=== PATIENT | female | born 1940 | race Caucasian/White ===

== ENCOUNTER → 2019-06-18 09:42 | Outpatient (BNVA) | payer MEDICARE, OTHER, SELFPAY | PROVIDERS: Family Provider Family Medicine; PCP Family Medicine; Visit Provider Urology | DX: N30.20 Other chronic cystitis without hematuria (principal); N39.9 Disorder of urinary system, unspecified | CPT/HCPCS: 81001 ==

== ENCOUNTER 2019-06-28 09:54 | Outpatient (CLI) | payer MEDICARE, OTHER, SELFPAY ==
--- NOTE | 2019-06-28 10:06 | MR_ITS ---
WS: [id number] MRI BRAIN WITH HIGH-RESOLUTION IMAGING THROUGH THE INTERNAL AUDITORY CANALS WITHOUT AND WITH CONTRAST HISTORY: DIZZINESS AND GIDDINESS COMPARISON: None available. TECHNIQUE: Multiplanar, multisequence imaging is performed through the brain. Additional 3 mm imaging performed in multiple planes through the internal auditory canal. Postcontrast imaging with 14 ml's of Prohance. No acute intracranial hemorrhage, midline shift, edema or mass effect. Patchy and confluent periventricular and deep white matter hyperintensities from chronic ischemic dis ease. No prior infarct. No acute infarct. Ventricles are mildly dilated on the basis of atrophy. No inferior displacement of cerebellar tonsils. Clivus and pituitary gland are normal. Internal and external auditory canals: Unremarkable. Cranial nerves VII and VIII complexes: Unremarkable. No enhancement or mass. Cerebellopontine angles: Normal. Paranasal sinuses: Normal. Mastoid air cells: Normal. Calvarium and scalp: Normal. Visualized [place] of [place] and dural venous sinuses demonstrate no abnormality. MR/MR iac's wo/w con* [id number] IMPRESSION: 1. Normal internal auditory canals and cerebellopontine angles. 2. Moderate chronic microvascular ischemic disease.
[2019-06-28 11:23] LABS: Blood Urea Nitrogen 19 mg/dL (8-23)
== END 2019-06-28 09:55 | disposition home or self-care (01) ==
LOC: RADWPI 10:00
PROVIDERS: Family Provider Family Medicine; PCP Family Medicine; Visit Provider Specialist
DX: I67.82 Cerebral ischemia (principal); R42 Dizziness and giddiness; N30.20 Other chronic cystitis without hematuria
CPT/HCPCS: 70553; 82565; 84520; A9579

== ENCOUNTER 2019-08-06 15:20 | Outpatient (CLI) | payer MEDICARE, OTHER, SELFPAY ==
[2019-08-06 15:46] VITALS: BP 160/87; PULSE 73; RESP 18; TEMP 37.1; O2SAT 96
[2019-08-06] MEDS: denosumab 60 mg SDV SUBCUT (15:56)
[2019-08-06 15:59] VITALS: BP 163/91; PULSE 71; RESP 18; TEMP 37
== END 2019-08-06 15:21 | disposition home or self-care (01) ==
LOC: RHEOACUTE 15:21
PROVIDERS: Family Provider Family Medicine; PCP Family Medicine; Visit Provider Internal Medicine Rheumatology
DX: M81.0 Age-related osteoporosis without current pathological fracture (principal)
CPT/HCPCS: 96372; J0897

== ENCOUNTER 2019-10-24 12:17 | Outpatient (RCR) | payer MEDICARE, OTHER, SELFPAY | END 2019-11-22 23:59 | disposition home or self-care (01) | LOC: SPT 12:17 | PROVIDERS: Family Provider Family Medicine; PCP Family Medicine; Referring Provider Otolaryngology; Visit Provider Otolaryngology | DX: R42 Dizziness and giddiness (principal) | CPT/HCPCS: 95992; 97112; 97162 ==

== ENCOUNTER 2019-11-04 09:25 | Outpatient (CLI) | payer MEDICARE, OTHER, SELFPAY ==
--- NOTE | 2019-11-04 09:33 | MM_ITS ---
WS: [id number] Bilateral screening digital mammogram, 11/04/2019 Clinical Data: SCREENING Comparison: 11/02/2018, 10/08/2018, 10/02/2017, 07/11/2017, 09/26/2016, 08/26/2015, 08/04/2014, 08/02/2013, 07/23, 08/01/2011, 07/28/2010, 06/29/2009, 06/02/2008, 05/14/2007, 05/12/2006. Findings: The breast parenchymal pattern shows extreme density No spiculated masses or clustered calcifications are seen. There are no secondary signs of carcinoma. There are calcifications in the north of small vessels. MM/[place] [id number] Impression: 1. Negative bilateral mammogram unchanged. 2. Recommend annual screening mammograms. BIRADS: 1-Negative FOLLOW UP: 1 Year Follow-up The CAD checkering machine operator was used.
== END 2019-11-04 09:26 | disposition home or self-care (01) ==
PROVIDERS: PCP Family Medicine; Visit Provider Family Medicine
DX: Z12.31 Encounter for screening mammogram for malignant neoplasm of breast (principal)
CPT/HCPCS: 77067

== ENCOUNTER → 2019-11-12 11:32 | Outpatient (BNVA) | payer MEDICARE, OTHER, SELFPAY | PROVIDERS: PCP Family Medicine; Visit Provider Dermatology | DX: L57.0 Actinic keratosis (principal); L82.1 Other seborrheic keratosis; D18.01 Hemangioma of skin and subcutaneous tissue; Z85.828 Personal history of other malignant neoplasm of skin | CPT/HCPCS: 17000; 99203 ==

== ENCOUNTER → 2020-03-05 08:42 | Outpatient (BNVA) | payer MEDICARE, OTHER, SELFPAY | PROVIDERS: PCP Family Medicine; Visit Provider Urology | DX: N30.20 Other chronic cystitis without hematuria (principal) | CPT/HCPCS: 81003 ==

== ENCOUNTER 2020-03-24 12:52 | Outpatient (CLI) | payer MEDICARE, OTHER, SELFPAY ==
[2020-03-24 13:00] VITALS: BP 147/78; PULSE 75; RESP 16; TEMP 36.3; O2SAT 98
[2020-03-24] MEDS: denosumab 60 mg SDV SUBCUT (13:05)
[2020-03-24 13:12] VITALS: BMI 22.6
[2020-03-24 13:32] VITALS: BP 139/75; PULSE 68; RESP 16; TEMP 36.3; O2SAT 97
== END 2020-03-24 12:53 | disposition home or self-care (01) ==
LOC: RHEOACUTE 12:53
PROVIDERS: PCP Family Medicine; Visit Provider Internal Medicine Rheumatology
DX: M81.0 Age-related osteoporosis without current pathological fracture (principal)
CPT/HCPCS: 96372; J0897

== ENCOUNTER → 2020-09-02 09:55 | Outpatient (BNVA) | payer MEDICARE, OTHER, SELFPAY | PROVIDERS: PCP Family Medicine; Visit Provider Urology | DX: N39.0 Urinary tract infection, site not specified (principal) | CPT/HCPCS: 81003; 87086 ==

== ENCOUNTER 2020-09-23 11:12 | Outpatient (CLI) | payer MEDICARE, OTHER, SELFPAY ==
[2020-09-23 12:25] LABS: Calcium 9.1 mg/dL (8.5-10.5)
[2020-09-23 12:41] LABS: 25 Hydroxy Vitamin D 65 ng/mL (30-100)
--- NOTE | 2020-09-23 14:41 | PC.NURSE ---
Peripheral labs from left ac using 21G needle. Site cleaned with alcohol, betadine, alcohol. Pt tolerated well and site covered with sterile gauze, coban.
== END 2020-09-23 11:13 | disposition home or self-care (01) ==
PROVIDERS: PCP Family Medicine; Visit Provider Family Medicine
DX: M81.0 Age-related osteoporosis without current pathological fracture (principal)
CPT/HCPCS: 82306; 82310; 82565

== ENCOUNTER 2020-09-28 06:49 | Outpatient (CLI) | payer MEDICARE, OTHER, SELFPAY ==
[2020-09-28] MEDS: denosumab 60 mg SDV SUBCUT (14:43)
[2020-09-28 15:43] VITALS: BP 145/74; PULSE 69; RESP 18; TEMP 36.6; O2SAT 96
--- NOTE | 2020-09-28 16:08 | PC.NURSE ---
1435 - Patient's Calcium level from lab draw last week was 9.1. I contacted Dr. Howe's office before giving Prolia injection, and spoke with his nurse, Kimberlyn. Dr. Howe instructed us to proceed with the injection. dh
== END 2020-09-28 06:50 | disposition home or self-care (01) ==
LOC: ONCMED 06:52
PROVIDERS: PCP Family Medicine; Visit Provider Family Medicine
DX: M81.0 Age-related osteoporosis without current pathological fracture (principal)
CPT/HCPCS: 96372; J0897

== ENCOUNTER 2020-12-02 11:37 | Outpatient (CLI) | payer MEDICARE, OTHER, SELFPAY ==
--- NOTE | 2020-12-02 11:44 | MM_ITS ---
WS: [id number] BILATERAL DIGITAL SCREENING MAMMOGRAPHY WITH CAD CLINICAL INFORMATION: SCREENING HISTORY: Screening mammogram. No current complaints. COMPARISON: November 04, 2019 TECHNIQUE: Bilateral CC and MLO views. FINDINGS: The breasts are composed of heterogeneous fibroglandular density tissue, which can limit the detectio n of small underlying mass lesions. Punctate and vascular calcifications. No suspicious mass, asymmet ry, calcifications, or architectural distortion. No evidence of malignancy. MM/[place] [id number] IMPRESSION: BI-RADS: 2-Benign FOLLOW UP: 1 Year Follow-up Recommend return to annual screening mammography.
== END 2020-12-02 11:38 | disposition home or self-care (01) ==
LOC: RADSHAW 11:40
PROVIDERS: PCP Family Medicine; Visit Provider Family Medicine
DX: Z12.31 Encounter for screening mammogram for malignant neoplasm of breast (principal)
CPT/HCPCS: 77067

== ENCOUNTER 2021-01-26 08:14 | Outpatient (CLI) | payer MEDICARE, OTHER, SELFPAY ==
--- NOTE | 2021-01-26 08:36 | XR_ITS ---
WS: [id number] Bone mineral density performed on a autoGraph IDXA, 01/26/2021 Clinical data: OSTEOPOROSIS COMPARISON STUDY: DEXA scans, 12/10/2018, 11/14/2016, 09/23/2014. Findings: The first 4 lumbar vertebral bodies demonstrated the bone mineral density of 0.340 g/cm2 for a young adult T score of -7.0. There is a levoscoliosis. The bone mineral density of the lumbar spine has in creased slightly compared to the prior study. Measurement of the left hip reveals a bone mineral density of 0.743 g/cm2 with a young adult T score of -2.1. Measurement of the right hip reveals the bone mineral density of 0.835 g/cm2 for young adult T score of -1.4. The bone mineral density of the hips has increased slightly compared to the prior study. XR/XR DEXA axial skeleton* [id number] Impression: 1. Osteoporosis of the lumbar spine. 2. Osteopenia of the hips.
== END 2021-01-26 08:15 | disposition home or self-care (01) ==
PROVIDERS: PCP Family Medicine; Visit Provider Family Medicine
DX: M81.0 Age-related osteoporosis without current pathological fracture (principal); M85.89 Other specified disorders of bone density and structure, multiple sites
CPT/HCPCS: 77080

== ENCOUNTER → 2021-03-09 09:17 | Outpatient (BNVA) | payer MEDICARE, OTHER, SELFPAY | PROVIDERS: PCP Family Medicine; Visit Provider Nurse Practitioner Family | DX: N39.0 Urinary tract infection, site not specified (principal) | CPT/HCPCS: 81003 ==

== ENCOUNTER 2021-04-01 09:58 | Outpatient (CLI) | payer MEDICARE, OTHER, SELFPAY ==
[2021-04-01 10:08] VITALS: BP 147/88; PULSE 76; RESP 18; TEMP 36.2; O2SAT 98
[2021-04-01] MEDS: denosumab 60 mg SDV SUBCUT (10:13)
[2021-04-01 10:22] VITALS: BP 150/85; PULSE 73; RESP 18; TEMP 36.7; O2SAT 96
== END 2021-04-01 09:59 | disposition home or self-care (01) ==
LOC: ONCMED 09:59
PROVIDERS: PCP Family Medicine; Referring Provider Family Medicine; Visit Provider Family Medicine
DX: M81.0 Age-related osteoporosis without current pathological fracture (principal)
CPT/HCPCS: 96372; J0897

== ENCOUNTER 2021-04-13 07:02 | Outpatient (CLI) | payer MEDICARE, OTHER, SELFPAY ==
[2021-04-13 07:22] VITALS: BMI 22.9
--- NOTE | 2021-04-13 07:22 | NMCV_ITS ---
NM ji perf SPECT r/s* [id number] Dionna Concepcion Age: 81 Gender: F : 1940 Exam Date: 04/13/2021 08:14 Ordering Phys: Arnold Cox M.D ([email or web address]) Technologist: FREDERIC Miles Exam Location: [facility] Indications: SHORTNESS OF BREATH STRESS TEST Please see separate stress test report in [facility] for full findings IMAGE PROTOCOL Rest/Stress 1 Lexiscan Day Radiopharmaceutical Dose (mCi) Administration Site Administered by Rest: Tc-99m 10.8 IV FREDERIC Horowitz Sestamibi Stress:Tc-99m 32.4 IV FREDERIC Horowitz Sestamibi Rest: 13-Apr-2021 60 Discovery 630 Stress: 13-Apr-2021 30 Discovery 630 0.4mg Lexiscan. Supine position only as patient was unable to lay prone. SPECT RESULTS Technical Quality: Excellent Raw Data Analysis: Normal Image Corrections: No attenuation or motion correction applied Summed Stress Score: 1 Summed Rest Score: 1 Summed Difference Score: 1 PERFUSION FINDINGS SPECT images demonstrate homogeneous tracer distribution throughout the myocardium. FUNCTIONAL RESULTS (calculated via Gated SPECT) Stress Image LV EF (%): 77 Stress EDV (mL):57 TID: 0.66 Stress ESV (mL):13 FUNCTIONAL FINDINGS: There is normal left ventricular systolic function. IMPRESSIONS 1. Normal myocardial perfusion imaging with no evidence of ischemia 2. LV systolic function is normal Arnold Cox MD (Electronically Signed) Final Date: 13 April 2021 10:57 S
--- NOTE | 2021-04-13 07:22 | ECG_ITS ---
[facility] Test Date: 2021-04-13 Pat Name: Dionna Concepcion Department: Room: Gender: Female Software Systems Analyst: Kaitlyn Saeed : 1940 Requested By: Arnold Cox Order Number: [id number] Dave MD: Arnold Cox M.D. Interpretive Statements NAME OF STUDY: LEXISCAN SESTAMIBI STRESS TEST INDICATION: [Chest Pain, ] Procedure: At the baseline, the blood pressure was 208/95 mmHg with a heart rate of 74 bpm. The electrocardiogram showed normal sinus rhythm, left axis deviation, intraventricular conduction delay with normal ST and T's. The Lexiscan was infused over a period of 20 seconds. A total of 0.4 mg of Lexiscan was infused. The stress phase was continued for a total of 5 minutes. Heart rate was at the end of stress phase was 104 bpm and a blood pressure of 198/95 mmHg. The EKG at the peak infusion revealed since normal sinus rhythm with no significant ST-T wave changes. Sestamibi was injected 20 seconds after the Lexiscan infusion. Blood pressure at the end of recovery phase was 185/101 mmHg with a heart rate of 98 bpm. Conclusion: 1. Normal EKG response to Lexiscan infusion 2. No Lexiscan induced chest pain or cardiac arrhythmia. 3. Baseline blood pressure was elevated and dropped down with Lexiscan injection 4. Sestamibi/sestamibi perfusion scan pending; see separate report. Electronically Signed On 04-17-2021 12:54:03 INTERNET NETWORK SPECIALIST by Arnold Cox M.D. [id number]
[2021-04-13 09:11] VITALS: BP 182/95; PULSE 99
[2021-04-13] MEDS: regadenoson 0.4 Mg/5 ml Syringe IVP (11:40)
== END 2021-04-13 07:03 | disposition home or self-care (01) ==
LOC: CDL 07:05
PROVIDERS: PCP Family Medicine; Visit Provider Internal Medicine
DX: R07.9 Chest pain, unspecified (principal); R06.02 Shortness of breath
CPT/HCPCS: 78452; 93017; A9500; J2785

== ENCOUNTER 2021-04-14 08:03 | Outpatient (CLI) | payer MEDICARE, OTHER, SELFPAY ==
--- NOTE | 2021-04-14 08:11 | USCV_ITS ---
Dionna Concepcion Age: 81 Gender: F : 1940 Exam Date: 04/14/2021 08:19 Ordering Phys: Thomas Howe MD Technologist: Nicole Gonzalez Exam Location: [facility] [place] Indication: CHEST PAIN BP: 166 / 82 HR: Rhythm: Sinus Technical Quality: Good MEASUREMENTS (Male / Female) Normal Values 2D ECHO LV Diastolic Diameter PLAX 3.9 cm 4.2 - 5.9 / 3.9 - 5.3 cm LV Systolic Diameter PLAX 2.5 cm IVS Diastolic Thickness 0.6 cm 0.6 - 1.0 / 0.6 - 0.9 cm IVS Systolic Thickness 1.1 cm LVPW Diastolic Thickness 0.8 cm 0.6 - 1.0 / 0.6 - 0.9 cm LVPW Systolic Thickness 1.8 cm LVOT Diameter 2.0 cm LV Ejection Fraction 2D Teich 65.3 % LV Ejection Fraction MOD 2C 76.5 % LV Ejection Fraction 2C AL 76.5 % LA Diameter 2.6 cm LA Width 2.4 cm LA Height 4.4 cm RA Width 3.2 cm RA Height 4.6 cm Aorta at Sinotubular Diameter 3.4 cm M-MODE Aortic Annulus Diameter 2.6 cm LA Ao Ratio MM 1.0 MV E Point Septal Separation 0.3 cm DOPPLER AV Peak Velocity 105.0 cm/s LVOT Peak Velocity 96.0 cm/s AV Area Cont Eq vti 3.1 cm squared AV Area Cont Eq pk 2.9 cm squared MV Peak Velocity 100.0 cm/s MV Area PHT 7.9 cm squared Mitral E to A Ratio 0.5 MV E' Velocity 31.5 cm/s Mitral E to MV E' Ratio 9.4 Mitral E to LV E' Lateral Ratio 8.4 Mitral E to LV E' Septal Ratio 10.7 TR Peak Velocity 208.5 cm/s TR Peak Gradient 17.4 mmHg Right Atrial Pressure 3.0 mmHg Pulmonary Artery Systolic Pressu 20.4 mmHg PV Peak Velocity 81.0 cm/s RV Acceleration Time 0.1 s RV Ejection Time 0.3 s RV AcT/ET 0.2 FINDINGS Left Ventricle Normal left ventricular size,. LV systolic function is normal with EF of 50-55%. Septal motion is consistent with conduction abnormality. Grade 1 diastolic dysfunction Right Ventricle The right ventricle is normal in size and function. Right Atrium The right atrium is normal in size. Left Atrium The left atrium is normal in size. Mitral Valve Structurally normal mitral valve without significant stenosis or prolapse. There is trace mitral regurgitation. Aortic Valve Structurally normal aortic valve without significant sclerosis or stenosis. There is no aortic regurgitation. Tricuspid Valve Structurally normal tricuspid valve without significant stenosis. Mild tricuspid regurgitation. Pulmonary artery systolic pressure is normal. Pulmonic Valve Structurally normal pulmonic valve without significant stenosis. There is no pulmonic regurgitation. Pericardium Normal pericardium without effusion. Aorta Normal ascending aorta dimension. CONCLUSIONS LV systolic function is normal with EF of 50-55%. Septal motion is consistent with conduction abnormality. Grade 1 diastolic dysfunction Trace mitral regurgitation Mild tricuspid regurgitation No comparison studies are available Arnold Cox MD (Electronically Signed) Final Date: 14 April 2021 12:25 S
== END 2021-04-14 08:04 | disposition home or self-care (01) ==
LOC: US 08:04
PROVIDERS: PCP Family Medicine; Visit Provider Family Medicine
DX: R07.9 Chest pain, unspecified (principal); I08.1 Rheumatic disorders of both mitral and tricuspid valves
CPT/HCPCS: 93306

== ENCOUNTER → 2021-08-17 10:54 | Outpatient (BNVA) | payer MEDICARE, OTHER, SELFPAY | PROVIDERS: PCP Family Medicine; Visit Provider Urology | DX: N39.0 Urinary tract infection, site not specified (principal); R33.9 Retention of urine, unspecified | CPT/HCPCS: 81003 ==

== ENCOUNTER 2021-10-05 09:53 | Outpatient (CLI) | payer MEDICARE, OTHER, SELFPAY ==
[2021-10-05 10:18] VITALS: BP 151/75; PULSE 74; RESP 18; TEMP 36.3; O2SAT 99
[2021-10-05] MEDS: denosumab 60 mg SDV SUBCUT (10:24)
[2021-10-05 10:32] VITALS: BP 133/64; PULSE 74; RESP 18; TEMP 36.4; O2SAT 99
== END 2021-10-05 09:54 | disposition home or self-care (01) ==
LOC: ONCMED 09:54
PROVIDERS: PCP Family Medicine; Referring Provider Family Medicine; Visit Provider Family Medicine
DX: M81.0 Age-related osteoporosis without current pathological fracture (principal)
CPT/HCPCS: 96372; J0897

== ENCOUNTER 2021-12-06 11:02 | Outpatient (CLI) | payer MEDICARE, OTHER, SELFPAY ==
--- NOTE | 2021-12-06 11:08 | MM_ITS ---
WS: [id number] VIEWS: MLO and CC views both breasts. 3D digital tomosynthesis is also included in this exam. Comparison made with prior exam of 10/02/2017, 10/08/2018, 11/04/2019, 12/02/2020,. Findings: There was no sign of mass, architectural distortion or suspicious calcification in either breast. He terogeneously dense MM/[place] [id number] Impression: BI-RADS: 1-Negative FOLLOW-UP: 1 Year Follow-up This mammogram was also analyzed by the Computer Aided Detection System R2 Imag e Scientific Informatics Leader.
== END 2021-12-06 11:03 | disposition home or self-care (01) ==
LOC: RAD 11:03
PROVIDERS: PCP Family Medicine; Visit Provider Family Medicine
DX: Z12.31 Encounter for screening mammogram for malignant neoplasm of breast (principal)
CPT/HCPCS: 77063; 77067

== ENCOUNTER → 2021-12-14 09:02 | Outpatient (BNVA) | payer MEDICARE, OTHER, SELFPAY | PROVIDERS: PCP Family Medicine; Visit Provider Urology | DX: N39.0 Urinary tract infection, site not specified (principal) | CPT/HCPCS: 51798; 81003; 99213 ==

== ENCOUNTER 2022-04-20 12:37 | Outpatient (CLI) | payer MEDICARE, OTHER, SELFPAY ==
[2022-04-20 12:48] VITALS: BP 149/77; PULSE 73; RESP 18; TEMP 36.1; O2SAT 98
[2022-04-20] MEDS: denosumab 60 mg SDV SUBCUT (12:56)
[2022-04-20 13:00] VITALS: BP 122/73; PULSE 70; RESP 18; TEMP 36.4; O2SAT 99
== END 2022-04-20 12:38 | disposition home or self-care (01) ==
LOC: ONCMED 12:38
PROVIDERS: PCP Family Medicine; Visit Provider Family Medicine
DX: M81.0 Age-related osteoporosis without current pathological fracture (principal)
CPT/HCPCS: 96372; J0897

== ENCOUNTER → 2022-06-03 09:36 | Outpatient (BNVA) | payer MEDICARE, OTHER, SELFPAY | PROVIDERS: PCP Family Medicine; Visit Provider Internal Medicine | DX: I10 Essential (primary) hypertension (principal) | CPT/HCPCS: 99213 ==

== ENCOUNTER → 2022-06-16 08:49 | Outpatient (BNVA) | payer MEDICARE, OTHER, SELFPAY | PROVIDERS: PCP Family Medicine; Visit Provider Urology | DX: N30.20 Other chronic cystitis without hematuria (principal); N94.9 Unspecified condition associated with female genital organs and menstrual cycle | CPT/HCPCS: 51798; 99213 ==

== ENCOUNTER → 2022-09-07 14:41 | Outpatient (BNVA) | payer MEDICARE, OTHER, SELFPAY | PROVIDERS: PCP Family Medicine; Visit Provider Urology | DX: N39.0 Urinary tract infection, site not specified (principal) | CPT/HCPCS: 81003; 99213 ==

== ENCOUNTER 2022-10-09 12:09 | Emergency (ER) | payer MEDICARE, OTHER, SELFPAY ==
[2022-10-09 12:10] VITALS: BP 178/87; PULSE 74; RESP 16; TEMP 36.9; O2SAT 95
--- NOTE | 2022-10-09 12:10 | W.ED.CHESTPA ---
HPI - Chest Pain General: Chief Complaint: Chest Pain Stated Complaint: CHEST PAIN Time Seen by Provider: 10/09/22 12:10 History of Present Illness: Ms. Concepcion is an 82-year-old lady with history of hypertension presenting to the emergency department for chest pain. She notes onset of symptoms last night in the left shoulder blade region. No significant radiation. Sharp in nature moderate to severe in intensity worse with movement and palpation. She does not report other typical cardiac features. Denies known provoking episode or event. No other specific changes in health, exacerbating, or alleviating factors identified. Onset (ago): hour(s) Timing of current episode: constant Onset: during rest Pain location: other Pain radiation: none Severity: severe Quality: sharp Exacerbating factors: inspiration, palpation and movement Review of Systems General: Reports: 10 or more systems reviewed and unremarkable except in HPI and below PFSH ED PFSH: Medical History Chronic cystitis Hypertension Recurrent UTI Surgical History H/O total hysterectomy History of lumpectomy of left breast Hx of cataract surgery S/P colon resection Family History Father , 79 Dementia Mother , 38 Cancer Social History Smoking and tobacco status: never smoked Alcohol intake: never Substance/Drug Use: never Marital status: / Current occupational status: retired Physical Exam Const: COMMON NORMALS: alert GENERAL APPEARANCE: cooperative and well developed HENMT: COMMON NORMALS: normocephalic and atraumatic HEAD & SCALP: normocephalic and atraumatic Eye: COMMON NORMALS: conjunctivae normal CONJUNCTIVA: Yes conjunctivae normal SCLERA: sclerae normal Neck/C-Spine: COMMON NORMALS: supple GENERAL: Yes trachea midline Resp: COMMON NORMALS: clear to auscultation bilaterally EFFORT & INSPECTION: Yes able to speak in complete sentences AUSCULTATION: clear to auscultation bilaterally Cardio: COMMON NORMALS: regular rate and regular rhythm RATE: regular rate RHYTHM: regular rhythm GI: COMMON NORMALS: Soft to palpation PALPATION: Yes Soft to palpation and No Tenderness to palpation present (GI) Extremity: NARRATIVE EXTREMITY EXAM: Some reproducible component however no obvious point tenderness. GENERAL: Yes normal exam except as noted and No edema Neuro: COMMON NORMALS: moves all extremities SENSORIUM/ORIENTATION: Yes alert and No Orientation impaired Psych: COMMON NORMALS: mental status grossly normal and Normal thought process present THOUGHT PROCESS: Normal thought process present Course Vital Signs: Vital signs: Vital Signs Temperature 98.4 F 10/09/22 12:10 Pulse Rate 69 10/09/22 15:22 Respiratory Rate 16 10/09/22 12:10 Blood Pressure 148/82 10/09/22 15:22 Pulse Oximetry 96 10/09/22 15:22 Oxygen Delivery Me thod Room Air 10/09/22 12:16 MDM - Chest Pain Medical Decision Making 82-year-old lady presenting with shoulder blade/back pain. Reproducible somewhat on exam though no obvious point tenderness. Patient is nontoxic. EKG demonstrates sinus rhythm with interventricular conduction delay, left axis deviation, nonspecific ST segment abnormalities. Labs with no leukocytosis, mild normocytic anemia, normal platelet count. Metabolic panel with mild evidence of dehydration. Negative range 2-hour delta troponin. Given pleuritic component D-dimer was ordered and was elevated as the patient cannot be excluded by Wells/PERC. Chest x-ray with no obvious lobar consolidation or pneumothorax. CTA demonstrates no pulmonary embolism or other significant abnormality to explain symptoms. Patient improved with Toradol. I discussed possible etiology of patient's symptoms at length. Symptoms will be very atypical of cardiac chest pain. The results of ED evaluation were discussed with the patient including possible disposition options. I discussed risk stratification by heart score and estimated risk of major adverse cardiac events. The patient wishes to proceed with outpatient management. I discussed prescriptions and/or symptomatic cares (if applicable) including appropriate and responsible use, followup plan, and return precautions. The patient verbalized understanding and felt safe for discharge. Medical Records I reviewed the patient's medical records. Lab Data I reviewed the patient's lab results. 10/09/22 12:00 10/09/22 12:00 Radiology Impressions Chest X-Ray 10/09/22 12:12 IMPRESSION: There is some subsegmental atelectasis and trace pleural fluid at the lung bases left more so than right with chronic granulomatous related change. Overall no lobar consolidation or cardiac decompensation is appreciated. Chest CTA 10/09/22 12:38 IMPRESSION: 1. No pulmonary thromboembolism is appreciated. 2. There is linear subsegmental atelectasis versus post inflammatory scarring demonstrated.No lobar consolidation or cardiac decompensation is appreciated. Laboratory Results WBC 9.9 10^3/uL (4.0-10.0) 10/09/22 12:00 RBC 3.76 10^6/uL (4.1-5.3) L 10/09/22 12:00 Hgb 11.3 g/dL (11.5-15.3) L 10/09/22 12:00 Hct 35.7 % (37.0-47.0) L 10/09/22 12:00 MCV 94.9 fl (81-99) 10/09/22 12:00 MCH 30.1 pg (28.0-34.0) 10/09/22 12:00 MCHC 31.7 g/dL (30.0-36.0) 10/09/22 12:00 RDW 15.2 % (12.1-15.1) H 10/09/22 12:00 Plt Count 378 10^3/cmm (130-400) 10/09/22 12:00 MPV 8.3 fL (7.4-10.4) 10/09/22 12:00 Neut % (Auto) 79.5 % 10/09/22 12:00 Lymph % (Auto) 12.9 % 10/09/22 12:00 Crane % (Auto) 5.5 % 10/09/22 12:00 Eos % (Auto) 0.7 % 10/09/22 12:00 Baso % (Auto) 0.9 % 10/09/22 12:00 Neut # (Auto) 7.90 10^3/uL (1.8-7.7) H 10/09/22 12:00 Lymph # (Auto) 1.3 10^3/uL (0.8-4.8) 10/09/22 12:00 Crane # (Auto) 0.6 10^3/uL (0.2-0.9) 10/09/22 12:00 Eos # (Auto) 0.1 10^3/uL (0.0-0.8) 10/09/22 12:00 Baso # (Auto) 0.1 10^3/uL (0.0-0.1) 10/09/22 12:00 Nucleated RBC % (auto) 0 % 10/09/22 12:00 Nucleated RBCs # 0.0 /100WBC 10/09/22 12:00 D-Dimer 1.07 ug/mIFEU (0-0.59) H 10/09/22 12:00 Sodium 131 mmol/L (136-145) L 10/09/22 12:00 Potassium 5.1 mmol/L (3.5-5.1) 10/09/22 12:00 Chloride 94 mmol/L (98-107) L 10/09/22 12:00 Carbon Dioxide 25 mmol/L (22-29) 10/09/22 12:00 Anion Gap 17.1 (5-19) 10/09/22 12:00 BUN 21 mg/dL (8-23) 10/09/22 12:00 Creatinine 1.0 mg/dL (0.5-0.9) H 10/09/22 12:00 GFR Calculation Not Reportable 10/09/22 12:00 Glucose 89 mg/dL (65-115) 10/09/22 12:00 Calculated Osmolality 274 mOsm/kg (285-295) L 10/09/22 12:00 Calcium 9.6 mg/dL (8.5-10.5) 10/09/22 12:00 Total Bilirubin 0.3 mg/dL (0.15-1.2) 10/09/22 12:00 AST 20 U/L (0-32) 10/09/22 12:00 ALT 17 U/L (0-33) 10/09/22 12:00 Alkaline Phosphatase 50 U/L (35-105) 10/09/22 12:00 Troponin T Baseline 12 ng/L (0-10) H 10/09/22 12:00 Troponin T 120 Minute 10.70 ng/L (0-10) H 10/09/22 13:53 Delta Troponin T -1.30 ABS# (0-10) L 10/09/22 13:53 NT-Pro-B Natriuret Pep 131 pg/mL (0-450) 10/09/22 12:00 Total Protein 6.8 g/dL (6.6-8.7) 10/09/22 12:00 Albumin 4.4 g/dL (3.5-5.2) 10/09/22 12:00 Globulin 2.4 g/dL (1.3-4.6) 10/09/22 12:00 Lipase 73 U/L (13-60) H 10/09/22 12:00 Discharge Plan Discharge Patient Disposition: Home Clinical Impression: Atypical chest pain Condition: Stable Prescriptions: No Action levothyroxine 88 mcg capsule 88 mcg PO DAILY lovastatin 10 mg tablet 10 mg PO DAILY omeprazole 40 mg capsule,delayed release(DR/EC) 40 mg PO DAILY meloxicam 15 mg tablet 15 mg PO DAILY Ocuvite Adult 50 Plus 250-5-1 mg capsule 1 cap PO DAILY Centrum Silver 0.4-300-250 mg-mcg-mcg tablet 1 tab PO DAILY Citracal Plus Bone Density 300-200-13.5 mg-unit-mg tablet PO cholecalciferol (vitamin D3) 1,250 mcg (50,000 unit) capsule 1,250 mcg PO DAILY melatonin 3 mg capsule 3 mg PO DAILY acetaminophen [Tylenol] 325 mg capsule 325 mg PO QID PRN Mylanta Maximum Strength 400-400-40 mg/5 mL suspension 5 ml PO QID PRN acyclovir 200 mg capsule 200 mg PO TID PRN Prolia 60 mg/mL syringe SUBCUT montelukast 10 mg tablet 10 mg PO DAILY PRN d-mannose 500 mg capsule PO Hylnads Leg Cramp PO amlodipine 2.5 mg tablet 2.5 mg PO DAILY prednisone 5 mg tablet 5 mg PO DAILY ketoconazole 2 % cream 1 applic topical BID Qty: 60 3RF Rx Instructions: Apply to affected areas in skin folds x 3 weeks then prn for flares ketoconazole 2 % shampoo 1 applic topical .2x weekly Qty: 120 6RF Rx Instructions: Lather into scalp 2-3 times weekly. Allow to sit on scalp for 5 minutes before rinsing. potassium gluconate 595 mg (99 mg) tablet 595 mg PO DAILY HYLANDS LEG CRAMP PO DAILY d-mannose 500 mg capsule PO TID Premarin 0.625 mg/gram cream 0.625 mg vaginal DAILY Qty: 30 12RF Rx Instructions: Apply approximately 1/2 inch of cream to the urethra 3 times per week. lisinopril 20 mg tablet 20 mg PO DAILY Qty: 90 3RF doxycycline hyclate 100 mg tablet 100 mg PO BID Qty: 60 4RF Discharge Orders: Discharge ED (Routine); Ordered 10/09/22 Ordered By: Waqar Villar Referrals: Thomas Howe MD [Primary Care Provider] - Discharge Diet: Usual diet Discharge Activity: Increase activity as tolerated Patient Instructions: Shoulder Pain (ED) Activity Restrictions/Additional Instructions: Thank you for visiting the emergency department. You were seen and evaluated for back/scapula pain. The exact cause of your symptoms is unclear however does not appear to need inpatient management at this time. This would be very atypical for cardiac cause of chest pain however given risk stratification I will order an outpatient stress test. Please follow-up with your primary care provider. You may use [id number]-wyr-[id number] medications such as acetaminophen and ibuprofen for pain however please do not exceed the daily recommended dosage as listed on the packaging and please keep in mind that many namebrand medications contain the same active ingredients. Please avoid these medications if previously instructed to do so by another physician due to other underlying medical condition. Return to the emergency department for worsening symptoms or anything else that you are concerned about and feel needs emergency department evaluation. Coding Level of Care Code ED Title Vehicle Service Attendant for Hermann Mao
--- NOTE | 2022-10-09 12:12 | XRR_ITS ---
PROCEDURE INFORMATION: Exam: XR Chest Exam date and time: 10/09/2022 12:22 PM Age: 82 years old Clinical indication: Pain; Chest pressure; Additional info: Cp. Click overall TECHNIQUE: Imaging protocol: Radiologic exam of the chest. 1image(s) are provided. Views: 1 view. COMPARISON: No relevant prior studies available. FINDINGS: Lungs: There is minimal subsegmental atelectasis versus post inflammatory scarring demonstrated.No lobar consolidation is appreciated. There is some nodular density suggestive of some granulomatous averaging of the right midlung zone measuring approximately 4 mm. There is some patchy subsegmental atelectasis of the lung bases left more so than right. There to be some central granulomatous cassius calcifications also present for example on the right.There appears to be some mild air trapping appearance overall. Pleural spaces: There is some minimal costophrenic angle blunting. No pneumothorax is appreciated. Heart/Mediastinum: The cardiomediastinal silhouette is upper normal in size.This can be seen with central averaging as well as cassius enlargement.No cardiac decompensation is appreciated. Diaphragm: The hemidiaphragms are relatively symmetric. Bones/joints: There is dextrocurvature of the thoracic spine demonstrated. There are some degenerative changes of the shoulders demonstrated. Osseous alignment is maintained.No displaced fracture or dislocation is appreciated. Soft tissues: No radiopaque foreign body or subcutaneous emphysema is appreciated. Intraperitoneal space: There appears to be a right upper quadrant clips. Other findings: There is overlying external clothing artifact. XR/XR chest 1V portable [id number] IMPRESSION: There is some subsegmental atelectasis and trace pleural fluid at the lung bases left more so than right with chronic granulomatous related change. Overall no lobar consolidation or cardiac decompensation is appreciated.
--- NOTE | 2022-10-09 12:12 | ECG_ITS ---
[facility] Test Date: 2022-10-09 Pat Name: Dionna Concepcion Department: Room: Gender: Female Bee Raiser: : 1940 Requested By: Waqar Villar Order Number: [id number] Dave MD: Arnold Cox M.D. Measurements Intervals [place] Rate: 72 P: 11 DE: 177 QRS: -33 QRSD: 134 T: 108 QT: 397 QTc: 436 Interpretive Statements SINUS RHYTHM LEFT AXIS DEVIATION [QRS AXIS < -30] INTRAVENTRICULAR CONDUCTION DELAY [130+ ms QRS DURATION] LEFT VENTRICULAR HYPERTROPHY AND ST-T CHANGE [VOLTAGE CRITERIA PLUS ST/T ABNORMALITY] POSSIBLE ANTEROSEPTAL MYOCARDIAL INFARCTION , OF INDETERMINATE AGE [30 ms Q WAVE IN V1-V4] No previous ECG available for comparison Electronically Signed On 10-10-2022 7:55:23 CDT by Arnold Cox M.D. [id number]
[2022-10-09 12:16] VITALS: BP 158/83; PULSE 76; O2SAT 98
[2022-10-09 12:20] LABS: Basophils # 0.1 10^3/uL (0.0-0.1); Basophils % 0.9 %; Eosinophils # 0.1 10^3/uL (0.0-0.8); Eosinophils % 0.7 %; Hematocrit 35.7 % (37.0-47.0); Hemoglobin 11.3 g/dL (11.5-15.3); Lymphocytes # 1.3 10^3/uL (0.8-4.8); Lymphocytes % 12.9 %; Mean Corpuscular HGB Conc 31.7 g/dL (30.0-36.0); Mean Corpuscular Hemoglobin 30.1 pg (28.0-34.0); Mean Corpuscular Volume 94.9 fl (81-99); Mean Platelet Volume 8.3 fL (7.4-10.4); Monocytes # 0.6 10^3/uL (0.2-0.9); Monocytes % 5.5 %; Neutrophils % 79.5 %; Nucleated Red Blood Cells % 0 %; Platelet Count 378 10^3/cmm (130-400); Red Blood Count 3.76 10^6/uL (4.1-5.3); Red Cell Distribution Width 15.2 % (12.1-15.1); White Blood Count 9.9 10^3/uL (4.0-10.0)
[2022-10-09] MEDS: ketorolac 30 mg/mL INJ 15 MG IVP (12:29)
[2022-10-09 12:37] LABS: D Dimer 1.07 ug/mIFEU (0-0.59)
--- NOTE | 2022-10-09 12:38 | CTR_ITS ---
PROCEDURE INFORMATION: Exam: CTA Chest With Contrast Exam date and time: 10/09/2022 1:10 PM Age: 82 years old Clinical indication: Pain; Pleuordynia; Additional info: Pleuritic L chest/back pain, elevated ddimer.No history of trauma or recent surgery is provided. TECHNIQUE: Imaging protocol: Computed tomographic angiography of the chest with contrast. Exam focused on the arteries. 843image(s) are provided. 3D rendering (Not supervised by radiologist): MIP and/or 3D reconstructed images were created by the technologist. Radiation optimization: All CT scans at this facility use at least one of these dose optimization techniques: automated exposure control; mA and/or kV adjustment per patient size (includes targeted exams where dose is matched to clinical indication); or iterative reconstruction. Contrast material: OMNI 350; Contrast volume: 70 ml; Contrast route: INTRAVENOUS (IV); Other technique: Axial images are available with sagittal and coronal reconstruction views. Automated dose exposure control is utilized. The DLP is 277.39. REPORTING DATA: Count of CT and Cardiac NM exams in prior 12 months: This patient has received 0 known CTs and 0 known cardiac nuclear medicine studies in the 12 months prior to the current study. COMPARISON: CR (CHEST, ) 10/09/2022 12:[address] chest is currently available. RADIATION DOSE METRICS: Total DLP (mGy-cm): 277.39 FINDINGS: Pulmonary arteries: No pulmonary thromboembolism is appreciated. Aorta: There is some atherosclerotic aortic and vascular changes present with no saccular aneurysmal dilatation of the aorta appreciated. No aortic intimal irregularity is appreciated. There are some dense aortic root calcifications present. Thyroid: There is some slight thyroid heterogeneous enlargement appearance overall. Trachea: The central airways are patent. Lungs: There is linear subsegmental atelectasis versus post inflammatory scarring demonstrated.No lobar consolidation is appreciated. There are calcified granulomatous changes present. There is some minimal apical fibrous scarring. There is a chronic calcified granuloma adjacent to the right fissure similar overall. There is some slight fissure thickening. Pleural spaces: No significant layering pleural effusion is appreciated. No pneumothorax is appreciated. Heart: No significant pericardial fluid collection is appreciated. Coronary arteries: There are coronary arterial calcifications present. Lymph nodes: There are subcentimeter predominant mediastinal and hilar lymph nodes overall present. There are granulomatous cassius calcifications present. Intraperitoneal space: There are hepatic and splenic granulomatous calcifications present. There is an otherwise unremarkable appearance of the included intraperitoneal space, upper abdominal structures. Bones/joints: Osseous alignment is maintained.No interval displaced fracture or dislocation is appreciated. There is some S shaped curvature of the thoracolumbar spine demonstrated. Soft tissues: No radiopaque foreign body or subcutaneous emphysema is appreciated. Other findings: There is some motion artifact present. No other significant interval changes are appreciated. CT/CT angio chest PE protcl [id number] IMPRESSION: 1. No pulmonary thromboembolism is appreciated. 2. There is linear subsegmental atelectasis versus post inflammatory scarring demonstrated.No lobar consolidation or cardiac decompensation is appreciated.
[2022-10-09 12:45] LABS: Troponin(5th) Baseline 12 ng/L (0-10)
[2022-10-09 12:46] VITALS: BP 132/65; PULSE 67; O2SAT 96
[2022-10-09 12:51] LABS: Alanine Aminotransferase 17 U/L (0-33); Albumin Level 4.4 g/dL (3.5-5.2); Alkaline Phosphatase 50 U/L (35-105); Anion Gap 17.1 (5-19); Aspartate Amino Transferase 20 U/L (0-32); Blood Urea Nitrogen 21 mg/dL (8-23); Calcium 9.6 mg/dL (8.5-10.5); Carbon Dioxide 25 mmol/L (22-29); Chloride 94 mmol/L (98-107); Globulin 2.4 g/dL (1.3-4.6); Glucose 89 mg/dL (65-115); Lipase 73 U/L (13-60); NT Pro B Type Natriuretic Pept 131 pg/mL (0-450); Osmolality Calculated 274 mOsm/kg (285-295); Potassium 5.1 mmol/L (3.5-5.1); Sodium 131 mmol/L (136-145); Total Bilirubin 0.3 mg/dL (0.15-1.2); Total Protein 6.8 g/dL (6.6-8.7)
[2022-10-09] MEDS: iohexol 350 mg/mL 500 mL Btl (per mL) IV (13:13)
[2022-10-09 14:16] VITALS: BP 130/95; PULSE 69; O2SAT 96
[2022-10-09 15:22] VITALS: BP 148/82; PULSE 69; O2SAT 96
--- NOTE | 2022-10-10 06:34 | DCPLANNER ---
Addendum entered by Clarisse Gonzales 11/09/22 13:44: army manager received the following message from centralized scheduling regarding stress test: The patient called her dr and he said she didn?t need the stress test done so we inactivated the order Original Note: army manager had message to schedule an outpatient stress test for patient. army manager faxed signed order to centralized scheduling, who will call patient with appointment information.
== END 2022-10-09 15:23 | disposition home or self-care (01) ==
PROVIDERS: Emergency Provider Emergency Medicine; PCP Family Medicine
DX: R07.89 Other chest pain (principal); D64.9 Anemia, unspecified; E86.0 Dehydration
CPT/HCPCS: 36415; 71045; 71275; 80053; 83690; 83880; 84484; 85025; 85378; 93005; 96374; 99285; J1885; Q9967

== ENCOUNTER → 2022-10-17 12:48 | Outpatient (BNVA) | payer MEDICARE, OTHER, SELFPAY | PROVIDERS: PCP Family Medicine; Visit Provider Dermatology | DX: L57.0 Actinic keratosis (principal); L82.0 Inflamed seborrheic keratosis; L82.1 Other seborrheic keratosis; L57.8 Other skin changes due to chronic exposure to nonionizing radiation; D69.2 Other nonthrombocytopenic purpura; L81.4 Other melanin hyperpigmentation; L85.3 Xerosis cutis; D18.01 Hemangioma of skin and subcutaneous tissue; Z85.828 Personal history of other malignant neoplasm of skin | CPT/HCPCS: 17000; 17003; 17110; 99213 ==

== ENCOUNTER 2022-10-21 09:00 | Oncology outpatient (recurring) (ONCR) | payer MEDICARE, OTHER, SELFPAY ==
[2022-10-21] MEDS: denosumab 60 mg SDV SUBCUT (09:17)
[2022-10-21 09:20] VITALS: BP 162/71; PULSE 73; RESP 16; TEMP 36.6; O2SAT 100
== END 2022-10-21 23:59 | disposition home or self-care (01) ==
PROVIDERS: PCP Family Medicine; Visit Provider Family Medicine
DX: M81.0 Age-related osteoporosis without current pathological fracture (principal)
CPT/HCPCS: 96372; J0897

== ENCOUNTER 2022-12-13 08:48 | Outpatient (CLI) | payer MEDICARE, OTHER, SELFPAY ==
--- NOTE | 2022-12-13 09:16 | MM_ITS ---
WS: [id number] BILATERAL 3D TOMOSYNTHESIS DIGITAL SCREENING MAMMOGRAPHY WITH CAD CLINICAL INFORMATION: SCREENING HISTORY: Screening mammogram. No current complaints. COMPARISON: 2021 TECHNIQUE: Bilateral CC and MLO views. FINDINGS: The breasts are composed of heterogeneous fibroglandular density tissue, which can limit the detectio n of small underlying mass lesions. No suspicious mass, asymmetry, calcifications, or architectural d istortion. No evidence of malignancy. Vascular calcification. Punctate and lucent centered calcificat ions. IMPRESSION: MM/[place] [id number] BI-RADS: 2-Benign FOLLOW UP: 1 Year Follow-up Recommend return to annual screening mammography.
== END 2022-12-13 08:49 | disposition home or self-care (01) ==
PROVIDERS: PCP Family Medicine; Visit Provider Family Medicine
DX: Z12.31 Encounter for screening mammogram for malignant neoplasm of breast (principal)
CPT/HCPCS: 77063; 77067

== ENCOUNTER 2023-01-01 15:52 | Emergency (ER) | payer MEDICARE, OTHER, SELFPAY ==
[2023-01-01 16:00] VITALS: BP 208/150; PULSE 84; TEMP 36.8; O2SAT 96; BMI 24.7
--- NOTE | 2023-01-01 16:01 | CTR_ITS ---
PROCEDURE INFORMATION: Exam: CT Head Without Contrast Exam date and time: 01/01/2023 4:19 PM Age: 82 years old Clinical indication: Injury or trauma; Fall; Blunt trauma (contusions or hematomas) TECHNIQUE: Imaging protocol: Computed tomography of the head without contrast. Radiation optimization: All CT scans at this facility use at least one of these dose optimization techniques: automated exposure control; mA and/or kV adjustment per patient size (includes targeted exams where dose is matched to clinical indication); or iterative reconstruction. REPORTING DATA: Count of CT and Cardiac NM exams in prior 12 months: This patient has received [address] and 0 known cardiac nuclear medicine studies in the 12 months prior to the current study. COMPARISON: MR [facility] wo/w con* [id number] 06/28/2019 10:44 AM RADIATION DOSE METRICS: Total DLP (mGy-cm): 949.4 FINDINGS: Brain: Mild periventricular white matter hypodense changes, most likely related to chronic microvascular ischemic disease. Mild brain parenchymal atrophy. There is an extra-axial hyperdense hematoma in the right parietal region measuring maximally 10-11 mm in thickness on the transverse images. There is minimal mass effect upon the adjacent brain parenchyma however there is no obvious midline shift. No mass effect or midline shift. The hematoma demonstrates a somewhat focal elliptical appearance and may have both subdural and epidural elements. Follow up assessment should be obtained if there is no intervention at this time. No evidence of acute intracranial hemorrhage on the left. Cerebral ventricles: No pathologic hydrocephalus. Paranasal sinuses: Fluid/hemorrhage-debris in the right maxillary sinus antrum, new since prior MRI exam. Please refer to maxillofacial bone CT exam report describing regional fracture. No calvarial fracture is identified. Mastoid air cells: Visualized mastoid air cells are well aerated. Bones/joints: See Paranasal sinuses finding. Soft tissues: Soft tissue contusion in the right maxillary/infraorbital region. CT/CT head wo con* [id number] IMPRESSION: 1. Acute extra-axial hematoma in the right parietal region as described above. Minimal regional mass effect on brain parenchyma however there is no midline shift. 2. Other age-related nonacute intracranial findings as above. 3. Please refer to maxillofacial CT report with findings in the sinus and regional inferior orbital wall fracture on the right.
--- NOTE | 2023-01-01 16:01 | CTR_ITS ---
PROCEDURE INFORMATION: Exam: CT Maxillofacial Without Contrast Exam date and time: 01/01/2023 4:19 PM Age: 82 years old Clinical indication: Injury or trauma; Blunt trauma (contusions or hematomas); Cheek bone and nose and orbit/periorbital and maxilla; Right; Additional info: Fall TECHNIQUE: Imaging protocol: Computed tomography of the face without contrast. Radiation optimization: All CT scans at this facility use at least one of these dose optimization techniques: automated exposure control; mA and/or kV adjustment per patient size (includes targeted exams where dose is matched to clinical indication); or iterative reconstruction. REPORTING DATA: Count of CT and Cardiac NM exams in prior 12 months: This patient has received [address] and 0 known cardiac nuclear medicine studies in the 12 months prior to the current study. COMPARISON: MR [facility] wo/w con* [id number] 06/28/2019 10:44 AM RADIATION DOSE METRICS: Total DLP (mGy-cm): 690.7 FINDINGS: Orbital cavities: There is minimally displaced/mm displaced fracture of the right inferior orbital wall. There is no obvious signs of soft tissue entrapment. There is also slight deformity at the posterolateral wall right maxillary sinus suggesting additional fracture. There is also a probable minimally displaced fracture near the right sphenoid zygomatic suture. Bones/joints: No other acute fracture. [id number] chronic TMJ arthropathy bilaterally. Paranasal sinuses: Fluid/hemorrhage is seen in the right maxillary sinus antrum. Soft tissues: Soft tissue thickening/contusion in the right maxillary/infraorbital region. Brain: Please refer to brain CT report for acute extra-axial hemorrhage in the right parietal region. CT/CT facial bones wo con* [id number] IMPRESSION: 1. Fractures involving the right inferior orbital wall, posterolateral right maxillary sinus wall and adjacent to the right sphenoidal zygomatic suture. Fluid/hemorrhage in the right maxillary sinus antrum. 2. Please refer to head CT report for acute extra-axial intracranial hemorrhage.
--- NOTE | 2023-01-01 16:01 | CTR_ITS ---
PROCEDURE INFORMATION: Exam: CT Cervical Spine Without Contrast Exam date and time: 01/01/2023 4:19 PM Age: 82 years old Clinical indication: Injury or trauma; Fall; Blunt trauma TECHNIQUE: Imaging protocol: Computed tomography of the cervical spine without contrast. Radiation optimization: All CT scans at this facility use at least one of these dose optimization techniques: automated exposure control; mA and/or kV adjustment per patient size (includes targeted exams where dose is matched to clinical indication); or iterative reconstruction. REPORTING DATA: Count of CT and Cardiac NM exams in prior 12 months: This patient has received [address] and 0 known cardiac nuclear medicine studies in the 12 months prior to the current study. COMPARISON: CT angio chest PE protcl [id number] 10/09/2022 1:10 PM RADIATION DOSE METRICS: Total DLP (mGy-cm): 474.8 FINDINGS: Bones/joints: Multilevel mild endplate/uncovertebral osteophytes and mild facet arthropathy are noted. No acute spine fracture or subluxation. Sszc-ti-gqgwjafw C5-C6 disc space narrowing. C2-C3: No significant disc bulge or herniation. No severe spinal canal stenosis. No significant neural foraminal narrowing. C3-C4: No significant disc bulge or herniation. No severe spinal canal stenosis. No significant neural foraminal narrowing. C4-C5: No significant disc bulge or herniation. No severe spinal canal stenosis. No significant neural foraminal narrowing. C5-C6: No significant disc bulge or herniation. No severe spinal canal stenosis. No significant neural foraminal narrowing. C6-C7: No significant disc bulge or herniation. No severe spinal canal stenosis. No significant neural foraminal narrowing. C7-T1: No significant disc bulge or herniation. No severe spinal canal stenosis. No significant neural foraminal narrowing. Lungs: Lung apices are normal. Soft tissues: Unremarkable. CT/CT cervical spin wo con* [id number] IMPRESSION: No acute cervical spine findings.
--- NOTE | 2023-01-01 16:02 | ED_ITS ---
HPI - Fall General: Chief Complaint: Fall Stated Complaint: fall, face injury Time Seen by Provider: 01/01/23 15:53 Source: patient Mode of arrival: ambulatory Limitations: no limitations History of Present Illness: 82-year-old female states she was sitting in a swivel chair with wheels picking up puzzle piece together she went to stand up out of the chair and it slipped and she fell forward hit her head on the wood floor. He has a headache she also has facial pain she has swelling to her right eye. She denies any other pain elsewhere she has been ambulatory since the event. No vomiting. Associated symptoms-after fall: Reports headache(s); Denies abdominal pain, chest pain or neck pain Review of Systems Const: Denies: fever(s) or chills Eyes: Denies: blurry vision ENMT: Denies: throat pain or dental pain Card: Denies: chest pain Resp: Denies: dyspnea GI: Denies: abdominal pain, nausea, vomiting or diarrhea Musc: Denies: neck pain or back pain Neuro: Reports: headache(s) PFSH ED PFSH: Medical History Chronic cystitis Hypertension Recurrent UTI Surgical History H/O total hysterectomy History of lumpectomy of left breast Hx of cataract surgery S/P colon resection Family History Father , 79 Dementia Mother , 38 Cancer Social History Smoking and tobacco status: never smoked Alcohol intake: never Substance/Drug Use: never Marital status: / Current occupational status: retired Physical Exam Const: COMMON NORMALS: no acute distress and patient oriented x3 HENMT: OTHER: Swelling over right eye abrasions noted to head and face Eye: COMMON NORMALS: Equal, round and reactive pupils present, EOMs intact bilaterally and conjunctivae normal CONJUNCTIVA: Yes conjunctivae normal PUPIL: Yes Equal, round and reactive pupils present Neck/C-Spine: COMMON NORMALS: full ROM Chest: COMMONS NORMALS: normal inspection of the chest and normal palpation of entire chest wall Resp: COMMON NORMALS: normal respiratory effort Cardio: COMMON NORMALS: regular rate RATE: regular rate GI: COMMON NORMALS: Normal to inspection, nondistended, normoactive bowel sounds present and non-tender Extremity: NARRATIVE EXTREMITY EXAM: Skin tears noted over right arm no tenderness over arm Neuro: COMMON NORMALS: patient oriented x3 Skin: COMMON NORMALS: no rashes or lesions noted GENERAL SKIN EXAM: no rash es or lesions noted Course Vital Signs: Vital signs: Vital Signs Temperature 98.2 F 01/01/23 16:00 Pulse Rate 81 01/01/23 16:44 Blood Pressure 182/88 01/01/23 16:44 Pulse Oximetry 98 01/01/23 16:44 Oxygen Delivery Me thod Room Air 01/01/23 16:44 MDM - Fall Medical Decision Making Patient presents for subdural hemorrhage after a fall she is not on any blood thinners spoke to [facility] will transfer there for higher level of care of trauma and neurosurgery. Lab Data 01/01/23 16:37 01/01/23 16:37 Critical Care Time Critical Care Time: Critical Care Time: Yes Total Critical Care Time: 40 Attestation: The high probability of a clinically significant, sudden or life threatening deterioration of the patient's trauma system(s) required my full and direct attention, intervention and personal management. The critical care time is as shown. This time is in addition to time spent performing any reported procedures but includes the following: [x] Data and vital sign review and interpretation [x] Patient assessment, examination and intervention [x] Documentation [x] Medication orders and management Discharge Plan Discharge Patient Disposition: Admitted As Inpatient Clinical Impression: Subdural hemorrhage Condition: Stable Prescriptions: No Action levothyroxine 88 mcg capsule 88 mcg PO DAILY lovastatin 10 mg tablet 10 mg PO DAILY omeprazole 40 mg capsule,delayed release(DR/EC) 40 mg PO DAILY meloxicam 15 mg tablet 15 mg PO DAILY Ocuvite Adult 50 Plus 250-5-1 mg capsule 1 cap PO DAILY Centrum Silver 0.4-300-250 mg-mcg-mcg tablet 1 tab PO DAILY Citracal Plus Bone Density 300-200-13.5 mg-unit-mg tablet 1 tab PO DAILY cholecalciferol (vitamin D3) 1,250 mcg (50,000 unit) capsule 1,250 mcg PO DAILY melatonin 3 mg capsule 3 mg PO DAILY acetaminophen [Tylenol] 325 mg capsule 325 mg PO QID PRN (Reason: Pain) Mylanta Maximum Strength 400-400-40 mg/5 mL suspension 5 ml PO QID PRN (Reason: Acid Reflux) acyclovir 200 mg capsule 200 mg PO TID PRN (Reason: Outbreak) Prolia 60 mg/mL syringe 60 mg SUBCUT Q6M montelukast 10 mg tablet 10 mg PO DAILY amlodipine 2.5 mg tablet 2.5 mg PO DAILY prednisone 5 mg tablet 5 mg PO DAILY ketoconazole 2 % cream 1 applic topical BID Qty: 60 3RF Rx Instructions: Apply to affected areas in skin folds x 3 weeks then prn for flares ketoconazole 2 % shampoo 1 applic topical .2x weekly Qty: 120 6RF Rx Instructions: Lather into scalp 2-3 times weekly. Allow to sit on scalp for 5 minutes b efore rinsing. potassium gluconate 595 mg (99 mg) tablet 595 mg PO DAILY HYLANDS LEG CRAMP 1 tab PO DAILY PRN (Reason: LEG CRAMP) d-mannose 500 mg capsule 500 mg PO TID lisinopril 20 mg tablet 20 mg PO DAILY Qty: 90 3RF doxycycline hyclate 100 mg tablet 100 mg PO BID Qty: 60 4RF Vitamin C 1,000 mg Tablet See Rx Instructions .ROUTE .COMPLEX Rx Instructions: 500 mg orally TWICE DAILY WITH METHENAMINE HIPPURATE methenamine hippurate 1 gram tablet See Rx Instructions .ROUTE .COMPLEX Rx Instructions: 1 g orally TWICE DAILY WITH 1000 MG VITAMIN C pantoprazole 40 mg Tablet,Delayed Release (Dr/Ec) 40 mg PO DAILY dorzolamide-timolol 22.3-6.8 mg/mL drops 1 drp ophthalmic (eye) BID Referrals: Thomas Howe MD [Primary Care Provider] - Patient Instructions: Opioid Safety, Pain Management Coding Level of Care Code ED Incident Response Coordinator for Hermann Mao
[2023-01-01] MEDS: labetalol 5 mg/mL SDV 20mL 10 MG IVP (16:40)
[2023-01-01 16:44] VITALS: BP 182/88; PULSE 81; O2SAT 98
[2023-01-01 16:52] LABS: Basophils # 0.1 10^3/uL (0.0-0.1); Basophils % 0.6 %; Eosinophils % 0.3 %; Hematocrit 39.4 % (36-47); Lymphocytes # 1.3 10^3/uL (0.8-4.8); Lymphocytes % 11.6 %; Mean Corpuscular HGB Conc 33.5 g/dL (30-55); Mean Corpuscular Hemoglobin 33.2 pg (27-33); Mean Platelet Volume 8.1 fL (7.4-10.4); Monocytes # 0.6 10^3/uL (0.2-0.9); Monocytes % 5.6 %; Neutrophils # 8.81 10^3/uL (1.8-7.7); Neutrophils % 81.4 %; Nucleated Red Blood Cells % 0 %; Platelet Count 325 10^3/cmm (157-399); Red Blood Count 3.98 10^6/uL (3.85-5.65); Red Cell Distribution Width 13.2 % (12.1-15.1); White Blood Count 10.82 10^3/uL (3.29-11.43)
[2023-01-01 17:05] LABS: INR 0.87 (0.8-1.2)
[2023-01-01 17:12] VITALS: BP 168/97; PULSE 75; RESP 15; O2SAT 98
[2023-01-01 17:15] LABS: Alanine Aminotransferase 22 U/L (0-33); Albumin Level 4.8 g/dL (3.5-5.2); Alkaline Phosphatase 49 U/L (35-105); Anion Gap 16.6 (5-19); Aspartate Amino Transferase 26 U/L (0-32); Blood Urea Nitrogen 18 mg/dL (8-23); Carbon Dioxide 24 mmol/L (22-29); Chloride 94 mmol/L (98-107); Globulin 2.8 g/dL (1.3-4.6); Glucose 103 mg/dL (65-115); Osmolality Calculated 272 mOsm/kg (285-295); Potassium 4.6 mmol/L (3.5-5.1); Sodium 130 mmol/L (136-145); Total Bilirubin 0.4 mg/dL (0.15-1.2); Total Protein 7.6 g/dL (6.6-8.7)
[2023-01-01] MEDS: hyDRALAzine 20 mg/mL INJ 1 mL 10 MG IVP (17:21)
--- NOTE | 2023-01-01 17:24 | PC.NURSE ---
Nurse administering blood pressure medication, pt states she has started to get a headache. Pts speech has been clear, she is still alert and oriented. Pt did now disclose that she thinks she might have lost consciousness after impact with the floor.
== END 2023-01-01 17:30 | disposition admitted as inpatient to this hospital (09) ==
PROVIDERS: Emergency Provider Emergency Medicine; PCP Family Medicine
DX: S06.5X0A Traumatic subdural hemorrhage without loss of consciousness, initial encounter (principal); S00.211A Abrasion of right eyelid and periocular area, initial encounter; S40.811A Abrasion of right upper arm, initial encounter; W19.XXXA Unspecified fall, initial encounter
CPT/HCPCS: 70450; 70486; 72125; 80053; 85025; 85610; 96374; 96375; 99285; J0360; J3490

== ENCOUNTER 2023-03-15 12:31 | Outpatient (CLI) | payer MEDICARE, SELFPAY ==
--- NOTE | 2023-03-15 12:36 | XR_ITS ---
WS: [id number] DEXA (DUAL ENERGY X-RAY ABSORPTIOMETRY) Bone mineral density was performed using a Sellbrite machine. HISTORY: OSTEOPORSIS COMPARISON: 01/26/2021 Lumbar spine BMD (L1-L4): 0.983 g/cm2 T score: -1.6 Z score: 0.1 Total hip BMD: Left: 0.821 g/cm2. T score: -1.5 Z score: 0.5 Right: 0.842 g/cm2. T score: -1.3 Z score: 0.7 10 year probability of a major osteoporotic fracture is 14.9%. Compared to the prior study from 01/26/2021. Lumbar spine bone mineral density has increased by 189%. Bilateral hips bone mineral density has increased by 5.4%. IMPRESSION: OSTEOPENIA based upon the WHO classification for females. Significant increase in bone mineral density in the hips and lumbar spine. The BMD increased within t he lumbar spine is likely falsely elevated due to sclerosis.
== END 2023-03-15 12:32 | disposition home or self-care (01) ==
LOC: RAD 12:31
PROVIDERS: PCP Family Medicine; Visit Provider Family Medicine
DX: M81.0 Age-related osteoporosis without current pathological fracture (principal)
CPT/HCPCS: 77080

== ENCOUNTER → 2023-08-09 14:43 | Outpatient (BNVA) | payer MEDICARE, OTHER, SELFPAY | PROVIDERS: PCP Family Medicine; Visit Provider Internal Medicine | DX: R07.9 Chest pain, unspecified (principal); I10 Essential (primary) hypertension | CPT/HCPCS: 99214 ==

== ENCOUNTER 2023-09-13 10:33 | Outpatient (CLI) | payer MEDICARE, SELFPAY ==
--- NOTE | 2023-09-13 10:39 | USCV_ITS ---
Dionna Concepcion Age: 83 Gender: F : 1940 Exam Date: 09/13/2023 11:06 Ordering Phys: Thomas Howe MD Technologist: CT Exam Location[place] [facility] [place] Indication: BP: 112 / 83 HR: 68 Rhythm: Sinus Technical Quality: Adequate MEASUREMENTS (Male / Female) Normal Values 2D ECHO LVOT Diameter 2.1 cm LV Ejection Fraction MOD 2C 61.8 % LV Ejection Fraction 2C AL 62.4 % LA Diameter 2.9 cm RA Systolic Volume 4C AL 53.2 ml RA Systolic Volume 4C MOD 52.3 ml LA Sys Volume AL 34.9 cm cubed LA Sys Volume Index AL 19.3 cm cubed/m squared Aorta at Sinotubular Diameter 2.2 cm IVC Diameter 1.7 cm M-MODE LA Ao Ratio MM 1.2 AV Cusp Separation MM 2.0 cm DOPPLER AV Peak Velocity 128.0 cm/s LVOT Peak Velocity 93.0 cm/s AV Area Cont Eq vti 2.8 cm squared AV Area Cont Eq pk 2.5 cm squared MV Peak Velocity 93.0 cm/s MV Area PHT 4.7 cm squared Mitral E to A Ratio 0.7 TV Peak Velocity 202.0 cm/s TR Peak Velocity 328.0 cm/s TR Peak Gradient 43.0 mmHg TV Peak E Velocity 75.0 cm/s Right Atrial Pressure 3.0 mmHg Pulmonary Artery Systolic Pressu 46.0 mmHg PV Peak Velocity 118.0 cm/s FINDINGS Left Ventricle Left ventricle is normal in size. LV systolic function is normal with EF 50-55%. Septal motion is consistent with conduction abnormality. Grade 1 diastolic dysfunction Right Ventricle Normal in size and function Right Atrium Normal in size Left Atrium Normal in size Mitral Valve Structurally normal mitral valve. Mild mitral regurgitation Aortic Valve Structurally normal aortic valve. No significant stenosis or regurgitation. Tricuspid Valve Mild tricuspid regurgitation. RVSP is 45 to 50 mmHg. This is consistent with moderate pulmonary hypertension Pulmonic Valve Not well-visualized Pericardium Normal Aorta Normal in size IVC Appears to be normal CONCLUSIONS LV systolic function is normal with EF of 50 to 55%. Grade 1 diastolic dysfunction. Mild mitral regurgitation. Mild tricuspid regurgitation Moderate pulmonary hypertension Compared to prior echocardiogram from 2020, moderate pulmonary hypertension is seen on current study. Arnold Cox MD (Electronically Signed) Final Date: 27 September 2023 19:26 S
== END 2023-09-13 10:34 | disposition home or self-care (01) ==
LOC: RAD 10:33
PROVIDERS: PCP Family Medicine; Visit Provider Family Medicine
DX: R01.1 Cardiac murmur, unspecified (principal); I34.0 Nonrheumatic mitral (valve) insufficiency; I36.1 Nonrheumatic tricuspid (valve) insufficiency; I27.20 Pulmonary hypertension, unspecified
CPT/HCPCS: 93306

== ENCOUNTER 2023-09-27 12:13 | Outpatient (RCR) | payer MEDICARE, SELFPAY | END 2023-10-05 23:59 | disposition home or self-care (01) | LOC: SPT 12:13 | PROVIDERS: PCP Family Medicine; Visit Provider Family Medicine | DX: R26.89 Other abnormalities of gait and mobility (principal) | CPT/HCPCS: 97110; 97161 ==

== ENCOUNTER 2023-11-18 17:17 | Inpatient (IN) | payer MEDICARE, SELFPAY ==
[2023-11-18 17:23] VITALS: BP 111/66; PULSE 95; RESP 18; TEMP 36.6; O2SAT 96
--- NOTE | 2023-11-18 17:27 | ECG_ITS ---
[facility] Test Date: 2023-11-18 Pat Name: Dionna Concepcion Department: Room: Gender: Female Direct Support Staff: : 1940 Requested By: Geovanny Swan Order Number: [id number] Dave MD: Jorge Ramesh M.D. Measurements Intervals [place] Rate: 90 P: 59 TX: 188 QRS: -5 QRSD: 128 T: 157 QT: 350 QTc: 430 Interpretive Statements SINUS RHYTHM LEFT BUNDLE BRANCH BLOCK [120+ ms QRS DURATION, 80+ ms Q/S IN V1/V2, 85+ ms R IN I/aVL/V5/V6] Compared to ECG 10/09/2022 12:22:10 No significant change Electronically Signed On 11-19-2023 12:30:51 CDT by Jorge Ramesh M.D. [id number]
--- NOTE | 2023-11-18 18:03 | XRR_ITS ---
PROCEDURE INFORMATION: Exam: XR Chest Exam date and time: 11/18/2023 7:09 PM Age: 83 years old Clinical indication: Patient HX: Weakness; SOB TECHNIQUE: Imaging protocol: Radiologic exam of the chest. Views: 1 view. COMPARISON: CT angio chest PE protcl [id number] 10/09/2022 1:10 PM FINDINGS: Lungs: Unremarkable. No consolidation. Pleural spaces: Unremarkable. No pleural effusion. No pneumothorax. Heart/Mediastinum: Unremarkable. No cardiomegaly. Vasculature: Atherosclerotic calcifications. Bones/joints: Scoliotic curvature of the thoracic spine. XR/XR chest 1V portable [id number] IMPRESSION: No acute findings.
[2023-11-18 18:47] LABS: Basophils # 0.1 10^3/uL (0.0-0.1); Basophils % 1.3 %; Eosinophils # 0.2 10^3/uL (0.0-0.8); Eosinophils % 2.7 %; Hematocrit 33.2 % (36-47); Lymphocytes # 1.5 10^3/uL (0.8-4.8); Lymphocytes % 21.8 %; Mean Corpuscular HGB Conc 32.5 g/dL (30-55); Mean Corpuscular Hemoglobin 32.4 pg (27-33); Mean Corpuscular Volume 99.7 fl (85-98); Mean Platelet Volume 8.8 fL (7.4-10.4); Monocytes # 0.6 10^3/uL (0.2-0.9); Monocytes % 9.6 %; Neutrophils % 64.3 %; Nucleated Red Blood Cells % 0 %; Platelet Count 285 10^3/cmm (157-399); Red Blood Count 3.33 10^6/uL (3.85-5.65); Red Cell Distribution Width 12.1 % (12.1-15.1); White Blood Count 6.69 10^3/uL (3.29-11.43)
[2023-11-18 19:04] LABS: Lactic Sepsis W/Reflex 1.5 mmol/L (0.5-2.2); Troponin(5th) Baseline 66 ng/L (0-10)
[2023-11-18 19:20] LABS: Alanine Aminotransferase 12 U/L (0-33); Albumin Level 4.6 g/dL (3.5-5.2); Alkaline Phosphatase 67 U/L (35-105); Anion Gap 23.2 (5-19); Aspartate Amino Transferase 27 U/L (0-32); Blood Urea Nitrogen 73 mg/dL (8-23); Calcium 10.1 mg/dL (8.5-10.5); Carbon Dioxide 19 mmol/L (22-29); Chloride 98 mmol/L (98-107); Creatinine Clr Calc Pharmacy 18.8239; Globulin 2.7 g/dL (1.3-4.6); Glucose 116 mg/dL (65-115); Osmolality Calculated 301 mOsm/kg (285-295); Potassium 6.2 mmol/L (3.5-5.1); Sodium 134 mmol/L (136-145); Total Bilirubin 0.2 mg/dL (0.15-1.2); Total Protein 7.3 g/dL (6.6-8.7)
--- NOTE | 2023-11-18 19:21 | ED_ITS ---
HPI - Weakness 2 General: Chief complaint: Weakness Stated complaint: weakness, sob Time Seen by Provider: 11/18/23 19:04 History of Present Illness: 83-year-old female with a history of con gestive heart failure, hypertension and recurrent urinary tract infections who presents emergency room with worsening weakness. Says she had gone to her primary earlier in the week and her family was worried she might be depressed so her doctor started her on an antidepressant. She took 1 dose and says she started feeling very weak and she is felt that way since. She has not taken any more of the Paxil. No focal motor deficits. No confusion. No slurred speech. No chest pain. No abdominal pain. Does not currently have any lower extremity swelling. No known fevers. Review of Systems 2 Narrative: Constitutional symptoms: Negative except as documented in HPI. Skin symptoms: Negative except as documented in HPI. Eye symptoms: Negative except as documented in HPI. ENMT symptoms: Negative except as documented in HPI. Respiratory symptoms: Negative except as documented in HPI. Cardiovascular symptoms: Negative except as documented in HPI. Gastrointestinal symptoms: Negative except as documented in HPI. Genitourinary symptoms: Negative except as documented in HPI. Musculoskeletal symptoms: Negative except as documented in HPI. Neurologic symptoms: Negative except as documented in HPI. Psychiatric symptoms: Negative except as documented in HPI. Endocrine symptoms: Negative except as documented in HPI. PFSH ED 2 PFSH: Medical History Hypertension Recurrent UTI Chronic cystitis Surgical History Hx of cataract surgery H/O total hysterectomy S/P colon resection History of lumpectomy of left breast Family History Father , 79 Dementia Mother , 38 Cancer Social History Smoking and tobacco/nicotine status: never used tobacco/nicotine Alcohol intake: never Substance/Drug Use: never Marital status: / Current occupational status: retired Physical Exam 2 Narrative: EXAM NARRATIVE: General: Alert, no acute distress. Skin: Warm, dry. Head: Normocephalic, atraumatic. Neck: Supple, trachea midline. Eye: Extraocular movements are intact. Ears, nose, mouth and throat: Tacky oral mucosa Cardiovascular: Regular, Normal peripheral perfusion. Respiratory: Lungs are clear to auscultation, respirations are non-labored, breath sounds are equal, Symmetrical chest wall expansion. Gastrointestinal: Soft, Nontender, Non distended Musculoskeletal: Normal ROM, no deformity. Neurological: Alert and oriented, No focal neurological deficit observed. Psychiatric: Cooperative, appropriate mood & affect. Course 2 Vital Signs: Vital signs: Vital Signs Temperature 97.8 F 11/18/23 17:23 Pulse Rate 95 11/18/23 17:23 Respiratory Rate 18 11/18/23 17:23 Blood Pressure 111/66 11/18/23 17:23 Pulse Oximetry 96 11/18/23 17:23 MDM - Weakness Medical Decision Making Medical decision making: Differential diagnosis for patient presenting with generalized weakness including but not limited to and based on the above HPI, review of systems and physical exam: Sepsis. Dehydration. Renal failure. Electrolyte abnormalities. Anemia. Congestive heart failure. Hypotension. Coronary syndrome. Hepatitis. Cirrhosis. Infections such as pneumonia, urinary tract infection, [place]ne illness, Cellulitis, Viral infections including influenza and Covid-19. Workup: labwork and lab/exam driven imaging ordered to evaluate, rule in and rule out above pathologies. EKG: Time 1727. Rate 90. Normal sinus rhythm, No ST-T changes, no ectopy, left bundle branch block, This was reviewed and interpreted by myself the ER physician at 1729 Lab Review: Laboratory results were reviewed and interpreted by myself the emergency room physician. White count is 6.7. Hemoglobin is 10.8. Platelets are 285. All fairly unremarkable. Of note her potassium is 6.2 which is slightly elevated. Her BUN and creatinine are 73 and 2.3 which is quite elevated over her baseline which ran about 18 and 1-1.3. CT of the abdomen pelvis without contrast: This was ordered to rule out any obstructive uropathy. No obstructions or calculi seen. There are some small calculi in the pelvis which are likely phleboliths. No hydronephrosis. Diverticulosis without diverticulitis. This was reviewed and interpreted by myself the emergency room physician. I also reviewed the radiology report. I reviewed the patient's medical record. Reexamination: Patient remained stable. She still appears quite weak. She does not have any increased work of breathing. No altered mental status and no focal motor deficits. Consultation: I spoke with the hospitalist on-call Dr. Pal. He agrees with admission. Assessment and plan: Renal failure Hyperkalemia Generalized weakness Dehydration -I discussed the patient with the hospitalist on-call who is admitting the patient. - Discussed findings and plan with patient. Answered any questions. - All laboratory values were reviewed and interpreted personally by myself, the ER physician - All imaging was reviewed and interpreted personally by myself, the ER physician. - Evaluation and treatment of this problem were appropriate in the emergency setting Lab Data 11/18/23 18:36 11/18/23 18:36 Radiology Impressions Chest X-Ray 11/18/23 18:03 IMPRESSION: No acute findings. Abdomen/Pelvis CT 11/18/23 19:24 IMPRESSION: 1. No obstructing calculi visualized. Small calculi within the pelvis are felt to represent phleboliths. No hydronephrosis bilaterally. 2. Diverticulosis without evidence of diverticulitis. COMMENTS: Consistent with the [employer]'s Incidental Findings Committee white paper (J Am Paresh Radiol 2018): Any incidental renal lesion less than 1 cm or classified as too small to characterize, or any incidental cystic renal lesion characterized as simple-appearing, is likely benign. No follow-up imaging is recommended for these lesions per consensus recommendations based on imaging criteria. Laboratory Results WBC 6.69 10^3/uL (3.29-11.43) 11/18/23 18:36 RBC 3.33 10^6/uL (3.85-5.65) L 11/18/23 18:36 Hgb 10.80 g/dL (11.27-16.99) L 11/18/23 18:36 Hct 33.2 % (36-47) L 11/18/23 18:36 MCV 99.7 fl (85-98) H 11/18/23 18:36 MCH 32.4 pg (27-33) 11/18/23 18:36 MCHC 32.5 g/dL (30-55) 11/18/23 18:36 RDW 12.1 % (12.1-15.1) 11/18/23 18:36 Plt Count 285 10^3/cmm (157-399) 11/18/23 18:36 MPV 8.8 fL (7.4-10.4) 11/18/23 18:36 Neut % (Auto) 64.3 % 11/18/23 18:36 Lymph % (Auto) 21.8 % 11/18/23 18:36 Luna % (Auto) 9.6 % 11/18/23 18:36 Eos % (Auto) 2.7 % 11/18/23 18:36 Baso % (Auto) 1.3 % 11/18/23 18:36 Neut # (Auto) 4.30 10^3/uL (1.8-7.7) 11/18/23 18:36 Lymph # (Auto) 1.5 10^3/uL (0.8-4.8) 11/18/23 18:36 Luna # (Auto) 0.6 10^3/uL (0.2-0.9) 11/18/23 18:36 Eos # (Auto) 0.2 10^3/uL (0.0-0.8) 11/18/23 18:36 Baso # (Auto) 0.1 10^3/uL (0.0-0.1) 11/18/23 18:36 Nucleated RBC % (auto) 0 % 11/18/23 18:36 Nucleated RBCs # 0.0 /100WBC 11/18/23 18:36 Sodium 134 mmol/L (136-145) L 11/18/23 18:36 Potassium 6.2 mmol/L (3.5-5.1) H 11/18/23 18:36 Chloride 98 mmol/L (98-107) 11/18/23 18:36 Carbon Dioxide 19 mmol/L (22-29) L 11/18/23 18:36 Anion Gap 23.2 (5-19) H 11/18/23 18:36 BUN 73 mg/dL (8-23) H 11/18/23 18:36 Creatinine 2.3 mg/dL (0.5-0.9) H 11/18/23 18:36 GFR Calculation Not Reportable 11/18/23 18:36 Glucose 116 mg/dL (65-115) H 11/18/23 18:36 Calculated Osmolality 301 mOsm/kg (285-295) H 11/18/23 18:36 Lactic Acid 1.5 mmol/L (0.5-2.2) 11/18/23 18:36 Calcium 10.1 mg/dL (8.5-10.5) 11/18/23 18:36 Total Bilirubin 0.2 mg/dL (0.15-1.2) 11/18/23 18:36 AST 27 U/L (0-32) 11/18/23 18:36 ALT 12 U/L (0-33) 11/18/23 18:36 Alkaline Phosphatase 67 U/L (35-105) 11/18/23 18:36 Troponin T Baseline 66 ng/L (0-10) H 11/18/23 18:36 C-Reactive Protein 3.0 mg/L (0.0-4.9) 11/18/23 18:36 Total Protein 7.3 g/dL (6.6-8.7) 11/18/23 18:36 Albumin 4.6 g/dL (3.5-5.2) 11/18/23 18:36 Globulin 2.7 g/dL (1.3-4.6) 11/18/23 18:36 All radiology interpretation(s) finalized by discharge Discharge Plan Discharge Patient Disposition: Admitted As Inpatient Clinical Impression: Acute renal failure, Dehydration, Hyperkalemia Condition: Stable Coding Level of Care Code ED Senior Windows Systems Engineer for Hermann Mao
--- NOTE | 2023-11-18 19:24 | CTR_ITS ---
PROCEDURE INFORMATION: Exam: CT Abdomen And Pelvis Without Contrast Exam date and time: 11/18/2023 7:41 PM Age: 83 years old Clinical indication: Abnormal findings; Abnormal lab test; Abnormal kidney function lab tests; Prior surgery; Surgery date: 6+ months; Surgery type: Breast lumpectomy. Hysterectomy. Colon resection. Patient HX: Naif with general weakness. ; Additional info: Renal failure, R/O obstructive uropathy per hospitalist TECHNIQUE: Imaging protocol: Computed tomography of the abdomen and pelvis without contrast. Radiation optimization: All CT scans at this facility use at least one of these dose optimization techniques: automated exposure control; mA and/or kV adjustment per patient size (includes targeted exams where dose is matched to clinical indication); or iterative reconstruction. COMPARISON: US bladder [id number] 03/21/2023 10:20 AM RADIATION DOSE METRICS: Total DLP (mGy-cm): 512.43 FINDINGS: Liver: Scattered calcified granulomas within the liver. Gallbladder and biliary ducts: Status post cholecystectomy. Pancreas: Normal. No ductal dilation. Spleen: Scattered calcified granulomas within the spleen. Adrenal glands: Normal. No mass. Kidneys and ureters: Simple cyst within the lower pole of the left kidney, no follow-up needed. No obstructing calculi visualized. Small calculi within the pelvis are felt to represent phleboliths. No hydronephrosis bilaterally. Stomach and bowel: Diverticulosis without evidence of diverticulitis. Anastomotic sutures within the proximal colon. Appendix: No evidence of appendicitis. Intraperitoneal space: Unremarkable. No free air. No significant fluid collection. Vasculature: Severe atherosclerotic calcifications. Lymph nodes: Unremarkable. No enlarged lymph nodes. Urinary bladder: Unremarkable as visualized. Reproductive: Status post hysterectomy. Bones/joints: Scoliotic curvature of the lumbar spine with associated degenerative changes. Soft tissues: Unremarkable. CT/CT kidney stone [id number] IMPRESSION: 1. No obstructing calculi visualized. Small calculi within the pelvis are felt to represent phleboliths. No hydronephrosis bilaterally. 2. Diverticulosis without evidence of diverticulitis. COMMENTS: Consistent with the [employer]'s Incidental Findings Committee white paper (J Am Paresh Radiol 2018): Any incidental renal lesion less than 1 cm or classified as too small to characterize, or any incidental cystic renal lesion characterized as simple-appearing, is likely benign. No follow-up imaging is recommended for these lesions per consensus recommendations based on imaging criteria.
--- NOTE | 2023-11-18 20:03 | ECG_ITS ---
[facility] Test Date: 2023-11-18 Pat Name: Dionna Concepcion Department: Room: Gender: Female Personalized Living Assistant: : 1940 Requested By: Radha Swan Order Number: [id number] Dave MD: Jorge Ramesh M.D. Measurements Intervals [place] Rate: 86 P: -1 PA: 174 QRS: -13 QRSD: 134 T: 152 QT: 361 QTc: 433 Interpretive Statements SINUS RHYTHM LEFT BUNDLE BRANCH BLOCK [120+ ms QRS DURATION, 80+ ms Q/S IN V1/V2, 85+ ms R IN I/aVL/V5/V6] Compared to ECG 11/18/2023 17:27:18 No significant changes Electronically Signed On 11-19-2023 12:23:04 CDT by Jorge Ramesh M.D. [id number]
[2023-11-18] MEDS: sodium chloride 0.9% 1,000 ML 999 ML IV (20:04)
[2023-11-18 20:52] LABS: Urine Appearance Cloudy (CLEAR); Urine Color Yellow (Yellow); pH Urine 5 (5-7)
[2023-11-18 20:53] LABS: Add Urine Culture? Yes; Bacteria Urine 3+ /hpf; Bilirubin Urine Neg (Negative); Blood Urine Trace (Negative); Glucose Urine UA Norm (Normal); Hyaline Casts Urine 0-4 /lpf; Ketones Urine Negative (Negative); Leukocyte Esterase Urine 2+ (Negative); Nitrate Urine Negative (Negative); Protein Urine Neg (Negative); RBC Urine 0-4 /hpf (0-2); Urobilinogen Urine Neg (Negative); WBC Urine 25-40 /hpf (0-5)
[2023-11-18 20:54] VITALS: BP 168/67; PULSE 87; RESP 20; TEMP 36.4; O2SAT 99
[2023-11-18 20:56] LABS: Troponin 5 2HR 60.18 ng/L (0-10)
[2023-11-18 20:57] LABS: Troponin 5 2HR Delta -5.82 ABS# (0-10)
[2023-11-18 21:04] VITALS: BP 154/73; PULSE 85; O2SAT 94
[2023-11-18] MEDS: sodium chloride 0.9% 1,000 ML 100 ML IV (21:51)
[2023-11-18] MEDS: heparin 5,000 unit/mL INJ 1 mL 5000 UNIT SUBCUT (21:54)
[2023-11-18 22:40] VITALS: PULSE 77
--- NOTE | 2023-11-18 23:09 | P.HP_ITS ---
Providers/Chief Complaint 2 Admitting Physician: Víctor Guzman DO Primary Care Provider: Thomas Howe MD Chief Complaint: weakness, sob History of Present Illness Dionna Concepcion is a 83 year old female with a past medical history of hypertension, hypothyroidism, hyperlipidemia, GERD, anxiety and depression, who presented to ER with c/o worsening weakness. Patient says that for the last 1 to 2 weeks, she has been having problems with weakness and fatigue. She said that it has progressively gotten worse. She had recently been prescribed Paxil, by her PCP, and had taken a single dose around the time that her symptoms started. She initially thought this could be the reason, but continued to feel poorly despite stopping the medication. Patient says that she has had some back pain for the last couple of weeks. She denies taking any ibuprofen or Aleve, but she does endorse taking meloxicam for her chronic arthritic pain. Patient says that she has not had any recent illness, fevers, chills. In the ER, labs were significant for elevated BUN to 73 and Cr of 2.3. Her baseline Cr is normally around 1.0. A UA was performed and was positive for leuk esterase, white blood cells, and 3+ bacteria. Urine was sent to lab for culture. Labs were also significant for a K+ of 6.2. EKG showed Sinus rhythm. She denied having any chest pressure or palpitations. CT of the abdomen and pelvis was performed, which did not demonstrate any obstructing renal calculi or hydronephrosis. She was given a fluid bolus in the ER and admission was requested. Review of Systems 2 General: Reports: 10 or more systems reviewed and unremarkable except in HPI and below Medications/Allergies Home Medications Medication Instructions Recorded Confirmed Last Taken Type aluminum-mag hydroxide-simethicone 5 ml PO QID PRN Acid Reflux 06/18/19 11/18/23 Unknown History 400 mg-400 mg-40 mg/5 mL oral susp (Mylanta Maximum Strength) calcium carb,cit 300 mg-D3 200 1 tab PO BID 06/18/19 11/18/23 01/01/23 History unit-min no.34-genistein 13.5 mg tablet (Citracal Plus Bone Density Builder) cholecalciferol (vitamin D3) 1,250 1,250 mcg PO BID 06/18/19 11/18/23 01/01/23 History mcg (50,000 unit) capsule levothyroxine 88 mcg capsule 88 mcg PO DAILY 06/18/19 11/18/23 01/01/23 History lovastatin 10 mg tablet 10 mg PO DAILY 06/18/19 11/18/23 01/01/23 History melatonin 3 mg capsule 1.5 mg PO DAILY 06/18/19 11/18/23 12/30/22 History meloxicam 15 mg tablet 15 mg PO DAILY 06/18/19 11/18/23 01/01/23 History eqqsjmxy-shy-rkbyk acid 0.4 1 tab PO DAILY 06/18/19 11/18/23 01/01/23 History mg-lycopene 300 mcg-lutein 250 mcg tablet (Centrum Silver) vit C,E,zinc,copper-hztxg1x 250 1 cap PO DAILY 06/18/19 11/18/23 01/01/23 History mg-lutein 5 mg-zeaxanthin 1 mg capsule (Ocuvite Adult 50 Plus) montelukast 10 mg tablet 10 mg PO DAILY 03/09/21 11/18/23 01/01/23 History lisinopril 20 mg tablet 20 mg PO DAILY #90 tabs 03/09/22 11/18/23 01/01/23 Rx ketoconazole 2 % shampoo 1 applic topical .2x weekly #120 mL 03/21/22 11/18/23 Unknown Rx HYLANDS LEG CRAMP 1 tab PO DAILY PRN LEG CRAMP 06/16/22 11/18/23 Unknown History potassium gluconate 595 mg (99 mg) 595 mg PO DAILY 06/16/22 11/18/23 01/01/23 History tablet doxycycline hyclate 100 mg tablet 100 mg PO BID #60 tabs 09/08/22 11/18/23 01/01/23 Rx dorzolamide 22.3 mg-timolol 6.8 1 drp ophthalmic (eye) BID 01/01/23 11/18/23 01/01/23 History mg/mL eye drops pantoprazole 40 mg tablet,delayed 40 mg PO BID 01/01/23 11/18/23 01/01/23 History release magnesium 250 mg tablet 250 mg PO DAILY 08/09/23 11/18/23 Unknown History amlodipine 10 mg tablet 10 mg PO DAILY 11/18/23 11/18/23 Unknown History cyanocobalamin (vitamin B-12) 2,500 mcg PO DAILY 11/18/23 11/18/23 Unknown History 2,500 mcg sublingual tablet (Vitamin B-12) paroxetine HCl 10 mg tablet 10 mg PO DAILY 11/18/23 11/18/23 Unknown History Allergies Allergy/AdvReac Type Severity Reaction Status Date / Time codeine Allergy NA Verified 11/18/23 17:28 naproxen [From Aleve] Allergy NA Verified 11/18/23 17:28 nitrofurantoin Allergy NA Verified 11/18/23 17:28 [From Macrobid] Sulfa (Sulfonamide Allergy NA Verified 11/18/23 17:28 Antibiotics) sulfamethoxazole Allergy Unknown Verified 11/18/23 23:07 [From Sulfamethoxazole-Trimethoprim] trimethoprim Allergy Unknown Verified 11/18/23 23:07 [From Sulfamethoxazole-Trimethoprim] PFSH Acute 2 PFSH: Medical History Hypertension Recurrent UTI Chronic cystitis Surgical History Hx of cataract surgery H/O total hysterectomy S/P colon resection History of lumpectomy of left breast Family History Father , 79 Dementia Mother , 38 Cancer Social History Smoking and tobacco/nicotine status: never used tobacco/nicotine Alcohol intake: never Substance/Drug Use: never Marital status: / Current occupational status: retired Vitals/I&O/Wt Last Vital Signs Temp 97.5 F L 11/18/23 20:54 Pulse 77 11/18/23 22:40 Resp 20 H 11/18/23 20:54 BP 154/73 11/18/23 21:04 Pulse Ox 94 11/18/23 21:04 O2 Del Method Room Air 11/18/23 21:24 11/18/23 11/18/23 11/19/23 14:59 22:59 06:59 Intake Total 1000 / 1000 Output Total 400 / 400 Balance 600 / 600 Weight last 48 hrs Weight 148 lb 2 oz Weight 160 lb Physical Exam 2 Narrative: General: Cooperative patient in no apparent distress. Well developed. HEENT: Normocephalic, Atraumatic. External ears normal. Nasal passages patent without drainage. MMM. Heart: RRR. Resp: LCTA. No respiratory distress, no use of accessory muscles. Abd: Soft, non-tender. Non-distended. Extremities: No edema. Skin: No rash or lesions on exposed areas. Data 11/18/23 18:36 11/18/23 18:36 Micro: Microbiology 11/18/23 18:30 Blood Culture - Preliminary Blood SPECIMEN COLLECTED 11/18/23 18:36 Blood Culture - Preliminary Blood SPECIMEN COLLECTED A&P Assessment and plan (1) Acute renal failure: Qualifiers: Acute renal failure type: unspecified Qualified Code(s): N17.9 - Acute kidney failure, unspecified (2) Dehydration: (3) Hyperkalemia: (4) Recurrent UTI: (5) Hypertension: Qualifiers: Hypertension type: primary hypertension Qualified Code(s): I10 - Essential (primary) hypertension (6) Acquired hypothyroidism: (7) GERD without esophagitis: (8) Mixed dyslipidemia: (9) Hyponatremia: Plan 83-year-old female admitted for ALEJANDRINA, hyperkalemia, concern for UTI and dehydration. Will admit to med/surg. Vitals are currently stable, with BP elevated to 150 range. Received Fluid bolus in the ER. CT was unremarkable for acute etiology. UA is consistent with infection. Will send for culture and sensitivities. Will start on ceftriaxone for empiric coverage. Blood cultures drawn and are pending. Will hold nephrotoxic medications including Meloxicam and lisinopril. Hold daily vitamins. Recheck am labs. She reports a history of CHF. She did have an echo earlier this year that showed EF of 50-55% and grade 1 diastolic dysfunction. Will continue IV hydration, but gently given this history. Will continue other home medications for chronic medical. Code Status: Full IVF: NS at 100 DVT PPx: Heparin GI PPx: Protonix ABx: Ceftriaxone Diet: Regular Discharge plan: Home when appropriate Attestations 2 Medical Necessity Statement*: Patient will need hospitalization for treatment of acute kidney injury, UTI with empiric antibiotics, hyperkalemia, cultures, and home medication adjustment. Coding Level of Care Code Acute Code for Chg Fwd Moderate MDM includes number and complexity of problems actively addressed during encounter, amount and/or complexity of data reviewed/ordered and described risk of complication, morbidity or mortality of management as documented Diagnoses Acute renal failure, unspecified acute renal failure type N17.9 Acute renal failure type: unspecified Dehydration E86.0 Hyperkalemia E87.5 Recurrent UTI N39.0 Primary hypertension I10 Hypertension type: primary hypertension Acquired hypothyroidism E03.9 GERD without esophagitis K21.9 Mixed dyslipidemia E78.2 Hyponatremia E87.1
[2023-11-18] MEDS: cefTRIAXone 1,000 mg SDV 1000 MG IVP (23:12)
[2023-11-19] VITALS (8 sets, daily range): BP systolic 118–129; BP diastolic 68–72; PULSE 76–89; RESP 12–18; TEMP 36.2–37.1; O2SAT 96–99
[2023-11-19 01:20] LABS: Basophils # 0.1 10^3/uL (0.0-0.1); Eosinophils # 0.2 10^3/uL (0.0-0.8); Lymphocytes # 2.1 10^3/uL (0.8-4.8); Lymphocytes % 23.4 %; Mean Corpuscular HGB Conc 32.9 g/dL (30-55); Mean Corpuscular Hemoglobin 32.3 pg (27-33); Mean Corpuscular Volume 98.1 fl (85-98); Mean Platelet Volume 8.7 fL (7.4-10.4); Monocytes # 0.8 10^3/uL (0.2-0.9); Monocytes % 9.2 %; Neutrophils # 5.67 10^3/uL (1.8-7.7); Neutrophils % 64.2 %; Nucleated Red Blood Cells % 0 %; Platelet Count 252 10^3/cmm (157-399); Red Blood Count 3.16 10^6/uL (3.85-5.65); Red Cell Distribution Width 11.9 % (12.1-15.1); White Blood Count 8.84 10^3/uL (3.29-11.43)
[2023-11-19 01:45] LABS: Troponin 5 6HR 65.02 ng/L (0-10)
[2023-11-19 01:48] LABS: Troponin 5 6HR Delta -0.98 ng/L (0-12)
[2023-11-19 01:49] LABS: Alanine Aminotransferase 11 U/L (0-33); Albumin Level 4.2 g/dL (3.5-5.2); Alkaline Phosphatase 55 U/L (35-105); Anion Gap 17.1 (5-19); Aspartate Amino Transferase 26 U/L (0-32); Blood Urea Nitrogen 58 mg/dL (8-23); Calcium 9.5 mg/dL (8.5-10.5); Carbon Dioxide 19 mmol/L (22-29); Chloride 109 mmol/L (98-107); Creatinine Clr Calc Pharmacy 26.1372; Globulin 2.3 g/dL (1.3-4.6); Glucose 101 mg/dL (65-115); Magnesium 2.1 mg/dL (1.7-2.3); Osmolality Calculated 306 mOsm/kg (285-295); Potassium 5.1 mmol/L (3.5-5.1); Sodium 140 mmol/L (136-145); Thyroid Stimulating Hormone 1.31 uIU/mL (0.27-4.20); Total Bilirubin 0.2 mg/dL (0.15-1.2); Total Protein 6.5 g/dL (6.6-8.7)
--- NOTE | 2023-11-19 01:57 | ECG_ITS ---
[facility] Test Date: 2023-11-19 Pat Name: Dionna Concepcion Department: Room: 279 Gender: Female Senior Buyer: : 1940 Requested By: Radha Swan Order Number: [id number] Dave MD: Jorge Ramesh M.D. Measurements Intervals [place] Rate: 81 P: 8 KS: 171 QRS: -47 QRSD: 134 T: 139 QT: 368 QTc: 427 Interpretive Statements SINUS RHYTHM LEFT AXIS DEVIATION [QRS AXIS < -30] LEFT BUNDLE BRANCH BLOCK [120+ ms QRS DURATION, 80+ ms Q/S IN V1/V2, 85+ ms R IN I/aVL/V5/V6] Compared to ECG 11/18/2023 20:29:51 no significant change Electronically Signed On 11-19-2023 12:25:42 CDT by Jorge Ramesh M.D. [id number]
[2023-11-19] MEDS: pantoprazole DR 40 mg Tablet PO (08:56)
[2023-11-19] MEDS: heparin 5,000 unit/mL INJ 1 mL 5000 UNIT SUBCUT ×2 (08:56→20:09)
[2023-11-19 12:11] LABS: Iron 67 ug/dL (37-145); Percent Saturation 27.9 % (20-50); Total Iron Binding Capacity 240 mcg/dl; Unsaturated Iron Binding 173 ug/dL (112-347)
[2023-11-19 12:25] LABS: Estmated Average Glucose 103; Hemoglobin A1C 5.2 % (4.0-6.0)
[2023-11-19 12:26] LABS: Vitamin B12 1722 pg/mL (232-1245)
--- NOTE | 2023-11-19 16:12 | P.PN_ITS ---
Subjective 2 Subjective: Admitted overnight. On examination laying comfortably in bed. States she is feeling less tired today. Daughter at bedside. Denies any nausea, vomiting, headache. Vitals/I&O/Wt Last Vital Signs Temp 98.8 F 11/19/23 12:00 Pulse 88 11/19/23 12:00 Resp 16 11/19/23 12:00 BP 123/72 11/19/23 12:00 Pulse Ox 97 11/19/23 12:00 O2 Del Method Room Air 11/19/23 12:00 11/19/23 11/19/23 11/19/23 06:59 14:59 22:59 Intake Total 1200 / 1200 Balance 1200 / 1200 Weight last 48 hrs Weight 69.944 kg Weight 67.188 kg Weight 72.575 kg Physical Exam 2 Narrative: General: Cooperative patient in no apparent distress. Well developed. HEENT: Normocephalic, Atraumatic. External ears normal. Nasal passages patent without drainage. MMM. Heart: RRR. Resp: LCTA. No respiratory distress, no use of accessory muscles. Abd: Soft, non-tender. Non-distended. Extremities: No edema. Skin: No rash or lesions on exposed areas. Data 11/19/23 01:10 11/19/23 01:10 Micro: Microbiology 11/18/23 18:30 Blood Culture - Preliminary Blood SPECIMEN COLLECTED 11/18/23 18:36 Blood Culture - Preliminary Blood SPECIMEN COLLECTED A&P Assessment and plan (1) Acute renal failure: In setting of dehydration from poor oral intake along with home use of diuretics and lisinopril. Patient was placed on diuretics recently by her primary care provider for lower limb swelling. Medical reconciliation for nephrotoxic drugs. Continue with IV hydration at 100 cc/h. Strict input charting. Meier catheterization. CT Abdo pelvis negative for obstructive nephropathy. Monitor BMP daily for now. Appreciate electrolytes. Hyperkalemia is resolved. Qualifiers: Acute renal failure type: unspecified Qualified Code(s): N17.9 - Acute kidney failure, unspecified (2) Dehydration: (3) Hyperkalemia: (4) Recurrent UTI: Denies any symptoms of dysuria for now. Does not have fever or leukocytosis. UTI unlikely for now. Appreciate urinalysis. For now continue with empiric IV ceftriaxone. Follow-up blood culture and urine culture (5) Hypertension: Goal blood pressure less than 140/90 mmHg. Hold off on home dose of amlodipine and lisinopril for now. Blood pressure stable. Qualifiers: Hypertension type: primary hypertension Qualified Code(s): I10 - Essential (primary) hypertension (6) Acquired hypothyroidism: TSH stable. Continue home dose of levothyroxine. (7) GERD without esophagitis: Continue with home dose of Protonix twice daily. (8) Mixed dyslipidemia: (9) Hyponatremia: Resolved. Most likely in setting of dehydration. Plan Weakness: Most likely in setting of overdiuresis leading to dehydration and ALEJANDRINA. Physical therapy evaluation. Code Status: Full IVF: NS at 100 DVT PPx: Heparin GI PPx: Protonix ABx: Ceftriaxone Diet: Regular Discharge plan: Home when appropriate Attestations 2 Medical Necessity Statement*: Requires further hospitalization for management of acute kidney injury in setting of dehydration and overdiuresis Diagnoses Acute renal failure, unspecified acute renal failure type N17.9 Acute renal failure type: unspecified Dehydration E86.0 Hyperkalemia E87.5 Recurrent UTI N39.0 Primary hypertension I10 Hypertension type: primary hypertension Acquired hypothyroidism E03.9 GERD without esophagitis K21.9 Mixed dyslipidemia E78.2 Hyponatremia E87.1
[2023-11-19] MEDS: sodium chloride 0.9% 1,000 ML 100 ML IV ×2 (17:13→21:05)
--- NOTE | 2023-11-19 18:35 | PC.NURSE ---
Patient refused glez catheter placement
[2023-11-19] MEDS: cyclobenzaprine 10 mg Tablet 5 MG PO (21:05)
[2023-11-19] MEDS: cefTRIAXone 1,000 mg SDV 1000 MG IVP (21:44)
[2023-11-20] VITALS: BP 144/75; PULSE 74; RESP 18; TEMP 36.6; O2SAT 98
[2023-11-20 04:00] VITALS: BP 135/68; PULSE 80; RESP 16; TEMP 36.7; O2SAT 98
[2023-11-20 04:56] VITALS: PULSE 79
[2023-11-20 05:10] LABS: Basophils # 0.1 10^3/uL (0.0-0.1); Basophils % 1.3 %; Eosinophils # 0.2 10^3/uL (0.0-0.8); Eosinophils % 3.5 %; Hematocrit 29.5 % (36-47); Lymphocytes % 31.5 %; Mean Corpuscular HGB Conc 32.5 g/dL (30-55); Mean Corpuscular Hemoglobin 32.7 pg (27-33); Mean Corpuscular Volume 100.3 fl (85-98); Mean Platelet Volume 8.9 fL (7.4-10.4); Monocytes # 0.6 10^3/uL (0.2-0.9); Monocytes % 9.9 %; Neutrophils # 3.37 10^3/uL (1.8-7.7); Neutrophils % 53.6 %; Nucleated Red Blood Cells % 0 %; Platelet Count 241 10^3/cmm (157-399); Red Blood Count 2.94 10^6/uL (3.85-5.65); Red Cell Distribution Width 12.2 % (12.1-15.1); White Blood Count 6.28 10^3/uL (3.29-11.43)
[2023-11-20 05:30] LABS: Alanine Aminotransferase 12 U/L (0-33); Albumin Level 3.9 g/dL (3.5-5.2); Alkaline Phosphatase 48 U/L (35-105); Anion Gap 14.9 (5-19); Aspartate Amino Transferase 26 U/L (0-32); Blood Urea Nitrogen 24 mg/dL (8-23); Calcium 9.4 mg/dL (8.5-10.5); Carbon Dioxide 18 mmol/L (22-29); Chloride 111 mmol/L (98-107); Creatinine Clr Calc Pharmacy 47.3049; Globulin 2.6 g/dL (1.3-4.6); Glucose 86 mg/dL (65-115); Osmolality Calculated 291 mOsm/kg (285-295); Potassium 4.9 mmol/L (3.5-5.1); Sodium 139 mmol/L (136-145); Total Bilirubin 0.2 mg/dL (0.15-1.2); Total Protein 6.5 g/dL (6.6-8.7)
[2023-11-20 05:45] LABS: Folate Level 19.1 ng/mL (4.8-37.3)
[2023-11-20 06:04] LABS: Chol HDL Ratio 4.11 mg/dL (0.0-4.40); Cholesterol 189 mg/dL (0-200); HDL Cholesterol 46 mg/dL (60-100); LDL Cholesterol Calculated 93 mg/dL (50-129); Magnesium 1.9 mg/dL (1.7-2.3); Triglycerides 250 mg/dL (0-150); VLDL Cholestrol Calculation 50 mg/dL (0-30)
[2023-11-20] MEDS: sodium chloride 0.9% 1,000 ML 100 ML IV (06:23)
[2023-11-20 07:53] VITALS: BP 154/78; PULSE 81; RESP 18; TEMP 36.4; O2SAT 98
[2023-11-20] MEDS: pantoprazole DR 40 mg Tablet PO (08:22)
[2023-11-20] MEDS: atorvastatin 40 mg Tablet 20 MG PO (08:22)
[2023-11-20] MEDS: levothyroxine 88 mcg Tablet PO (08:22)
[2023-11-20] MEDS: cyanocobalamin 1,000 mcg Tablet 2500 MCG PO (08:23)
[2023-11-20] MEDS: heparin 5,000 unit/mL INJ 1 mL 5000 UNIT SUBCUT (08:23)
--- NOTE | 2023-11-20 10:04 | PC.CHAP ---
Pastoral Care Encounter/Spiritual Assessment Type of Contact [] Declined vice squad police officer visit [] Patient/Family/Request visit [] Outpatient visit [] Follow-up visit [] Physician referral [] Code/Alert [x] Routine visit [] Staff referral [] Actively dying [] Patient sleeping [] Family support [] [] Out of room [] Palliative care [] [] Receiving care in room [] Pre-surgical visit [] Trauma [] Long length of stay [] ICU visit [] Other: Relational/Emotional Strength [] Patient feels connected with others/family/visitors/staff [] Distress [] Loneliness/isolation [] Abandonment Spirituality of Patient [] Person of Angela [] Attends Sabianist of their Angela [] Believes in Prayer [] Reads Bible or Pentecostal materials [] There are Spiritual issues to be addressed Software Licensing Analyst Interventions [] Prayer [] Active listening [] Non-anxious presence [] Spiritual/emotional support [] Crisis/trauma care [] Spiritual counseling [] Bereavement support [] Provided bereavement packet [] Provided Bible/devotional materials [] Provided toy/stuffed animal, coloring book to patient or family member [] Provided Communion [] Anointing/[place] [] Salvation [] Completed spiritual assessment [] Other: Impact on Illness or Injury [] Angry [] Fearful [] Anxious [] Often cries [] Exhaustion [] Unable to work [] Unable to attend jainism [] Unable to walk/stand [] Unable to read [] Unable to drive [] Unable to eat/drink [] Unable to sleep [] Unable to be with family [] Patient intubated [] Other: Summary precaution Time spent with patient
--- NOTE | 2023-11-20 10:05 | PC.CHAP ---
Pastoral Care Encounter/Spiritual Assessment Type of Contact [] Declined supervisor engines road visit [] Patient/Family/Request visit [] Outpatient visit [] Follow-up visit [] Physician referral [] Code/Alert [x] Routine visit [] Staff referral [] Actively dying [] Patient sleeping [] Family support [] [] Out of room [] Palliative care [] [] Receiving care in room [] Pre-surgical visit [] Trauma [] Long length of stay [] ICU visit [] Other: Relational/Emotional Strength [] Patient feels connected with others/family/visitors/staff [] Distress [] Loneliness/isolation [] Abandonment Spirituality of Patient [x] Person of Angela [] Attends Latter Day of their Angela [x Believes in Prayer [] Reads Bible or Buddhist materials [] There are Spiritual issues to be addressed Cupboard Builder Interventions [x] Prayer [x] Active listening [] Non-anxious presence [] Spiritual/emotional support [] Crisis/trauma care [] Spiritual counseling [] Bereavement support [] Provided bereavement packet [] Provided Bible/devotional materials [] Provided toy/stuffed animal, coloring book to patient or family member [] Provided Communion [] Anointing/[place] [] Salvation [x] Completed spiritual assessment [] Other: Impact on Illness or Injury [] Angry [] Fearful [] Anxious [] Often cries [] Exhaustion [] Unable to work [] Unable to attend taoist [] Unable to walk/stand [] Unable to read [] Unable to drive [] Unable to eat/drink [] Unable to sleep [] Unable to be with family [] Patient intubated [] Other: Summary Time spent with patient 5 min
[2023-11-20 11:41] VITALS: BP 122/67; PULSE 86; RESP 17; TEMP 36.4; O2SAT 100
--- NOTE | 2023-11-20 12:29 | PM.DCS ---
Discharge Providers Date of Admission: 11/18/23 20:26 Date of Discharge: November 20, 2023 Attending Provider at Admission: Víctor Guzman DO Attending Provider at Discharge: Mckinley Davis Primary Care Provider: Thomas Howe MD Diagnoses at Discharge Discharge Diagnosis (1) Acute renal failure: Status: Acute Qualifiers: Acute renal failure type: unspecified Qualified Code(s): N17.9 - Acute kidney failure, unspecified (2) Dehydration: Status: Acute (3) Hyperkalemia: Status: Acute (4) Recurrent UTI: Status: Acute (5) Hypertension: Status: Acute Qualifiers: Hypertension type: primary hypertension Qualified Code(s): I10 - Essential (primary) hypertension (6) Acquired hypothyroidism: Status: Acute (7) GERD without esophagitis: Status: Acute (8) Mixed dyslipidemia: Status: Acute (9) Hyponatremia: Status: Acute Reason for Visit Reason for Visit: weakness, sob Hospital Course Hospital Course Pleasant 83-year-old lady was admitted due to generalized weakness, found to be hyponatremic with acute kidney injury. She has been dealing with lower extremity edema, had been started on Lasix, additionally recently started Paxil although did not take it anymore after she tried it and could not tolerate it after 1 dose. Her diuretic was held, as well as lisinopril, she received rehydration with IV fluids, hyponatremia and ALEJANDRINA resolved. She did well on assessment by physical therapy, she was comfortable returning home. She is asked to discontinue meloxicam and avoid any NSAIDs due to risk of kidney injury. She is asked to discontinue Lasix, take it only as needed in case of symptoms of congestive heart failure with shortness of breath on exertion or orthopnea in addition to leg swelling, otherwise elevate extremities and utilize compression stockings. She is also asked to hold lisinopril for now until reassessment of her kidney function and blood pressure. Her blood pressure has been running normal with intermittent spikes. We discussed with her that amlodipine can contribute to lower extremity edema. She is to take potassium only in case of taking Lasix, due to hyperkalemia on presentation. Discussed for now frequent monitoring of blood pressure, consideration of as needed amlodipine dose for blood pressures over 150 systolic or 90 diastolic. Physical Exam Narrative: Accompanied by her daughter. Const: COMMON NORMALS: patient oriented x3 and alert GENERAL APPEARANCE: cooperative ORIENTATION/CONSCIOUSNESS: Yes awake HENMT: COMMON NORMALS: oropharynx normal Neck/C-Spine: COMMON NORMALS: no JVD Resp: COMMON NORMALS: normal respiratory effort and clear to auscultation bilaterally AUSCULTATION: clear to auscultation bilaterally Cardio: COMMON NORMALS: no JVD, regular rhythm, S1 normal heart sound present, S2 normal heart sound present and No murmurs present (Cardio) RHYTHM: regular rhythm HEART SOUNDS: S1 normal heart sound present and S2 normal heart sound present GI: COMMON NORMALS: Normal to inspection, nondistended, normoactive bowel sounds present, Soft to palpation and non-tender PALPATION: Yes Soft to palpation Extremity: COMMON NORMALS: no joint enlargement and no pedal edema Neuro: COMMON NORMALS: patient oriented x3 and moves all extremities SENSORIUM/ORIENTATION: Yes alert Skin: COMMON NORMALS: no rashes or lesions noted GENERAL SKIN EXAM: no rashes or lesions noted Discharge Data Studies Completed and Pending Completed Studies During Hospitalization Category Date Time Status CT kidney stone [id number] Stat Cat Scan 11/18/23 19:24 Completed XR chest 1V portable [id number] Stat Exams 11/18/23 18:03 Completed Pending at discharge Category Date Time Status Blood Culture Stat Lab 11/18/23 18:30 Results MAG [Magnesium] AM LABS Lab 11/21/23 04:00 Ordered MAG [Magnesium] AM LABS Lab 11/22/23 04:00 Ordered Urine Creatinine Routine Lab 11/19/23 11:40 Ordered Urine Culture Stat Lab 11/18/23 20:25 Results Urine Lytes [Urine Random Lytes] Stat Lab 11/19/23 11:40 Ordered Radiology Impressions Chest X-Ray 11/18/23 18:03 IMPRESSION: No acute findings. Abdomen/Pelvis CT 11/18/23 19:24 IMPRESSION: 1. No obstructing calculi visualized. Small calculi within the pelvis are felt to represent phleboliths. No hydronephrosis bilaterally. 2. Diverticulosis without evidence of diverticulitis. COMMENTS: Consistent with the [employer]'s Incidental Findings Committee white paper (J Am Paresh Radiol 2018): Any incidental renal lesion less than 1 cm or classified as too small to characterize, or any incidental cystic renal lesion characterized as simple-appearing, is likely benign. No follow-up imaging is recommended for these lesions per consensus recommendations based on imaging criteria. Laboratory Results WBC 6.28 10^3/uL (3.29-11.43) 11/20/23 04:53 RBC 2.94 10^6/uL (3.85-5.65) L 11/20/23 04:53 Hgb 9.60 g/dL (11.27-16.99) L 11/20/23 04:53 Hct 29.5 % (36-47) L 11/20/23 04:53 MCV 100.3 fl (85-98) H 11/20/23 04:53 MCH 32.7 pg (27-33) 11/20/23 04:53 MCHC 32.5 g/dL (30-55) 11/20/23 04:53 RDW 12.2 % (12.1-15.1) 11/20/23 04:53 Plt Count 241 10^3/cmm (157-399) 11/20/23 04:53 MPV 8.9 fL (7.4-10.4) 11/20/23 04:53 Neut % (Auto) 53.6 % 11/20/23 04:53 Lymph % (Auto) 31.5 % 11/20/23 04:53 [place] % (Auto) 9.9 % 11/20/23 04:53 Eos % (Auto) 3.5 % 11/20/23 04:53 Baso % (Auto) 1.3 % 11/20/23 04:53 Neut # (Auto) 3.37 10^3/uL (1.8-7.7) 11/20/23 04:53 Lymph # (Auto) 2.0 10^3/uL (0.8-4.8) 11/20/23 04:53 [place] # (Auto) 0.6 10^3/uL (0.2-0.9) 11/20/23 04:53 Eos # (Auto) 0.2 10^3/uL (0.0-0.8) 11/20/23 04:53 Baso # (Auto) 0.1 10^3/uL (0.0-0.1) 11/20/23 04:53 Nucleated RBC % (auto) 0 % 11/20/23 04:53 Nucleated RBCs # 0.0 /100WBC 11/20/23 04:53 Sodium 139 mmol/L (136-145) 11/20/23 04:53 Potassium 4.9 mmol/L (3.5-5.1) 11/20/23 04:53 Chloride 111 mmol/L (98-107) H 11/20/23 04:53 Carbon Dioxide 18 mmol/L (22-29) L 11/20/23 04:53 Anion Gap 14.9 (5-19) 11/20/23 04:53 BUN 24 mg/dL (8-23) H 11/20/23 04:53 Creatinine 0.9 mg/dL (0.5-0.9) 11/20/23 04:53 GFR Calculation Not Reportable 11/20/23 04:53 Glucose 86 mg/dL (65-115) 11/20/23 04:53 Estimat Average Glucose 103 11/19/23 01:10 Hemoglobin A1c 5.2 % (4.0-6.0) 11/19/23 01:10 Calculated Osmolality 291 mOsm/kg (285-295) 11/20/23 04:53 Lactic Acid 1.5 mmol/L (0.5-2.2) 11/18/23 18:36 Calcium 9.4 mg/dL (8.5-10.5) 11/20/23 04:53 Magnesium 1.9 mg/dL (1.7-2.3) 11/20/23 04:53 Iron 67 ug/dL (37-145) 11/19/23 01:10 TIBC 240 mcg/dl 11/19/23 01:10 % Saturation 27.9 % (20-50) 11/19/23 01:10 Unsat Iron Binding 173 ug/dL (112-347) 11/19/23 01:10 Total Bilirubin 0.2 mg/dL (0.15-1.2) 11/20/23 04:53 AST 26 U/L (0-32) 11/20/23 04:53 ALT 12 U/L (0-33) 11/20/23 04:53 Alkaline Phosphatase 48 U/L (35-105) 11/20/23 04:53 Troponin T Baseline 66 ng/L (0-10) H 11/18/23 18:36 Troponin T 120 Minute 60.18 ng/L (0-10) H 11/18/23 20:33 Delta Troponin T -5.82 ABS# (0-10) L 11/18/23 20:33 Troponin T Hi Sens 6Hr 65.02 ng/L (0-10) H 11/19/23 01:10 Troponin T Hi Sens 6Hr Delta -0.98 ng/L (0-12) L 11/19/23 01:10 C-Reactive Protein 3.0 mg/L (0.0-4.9) 11/18/23 18:36 Total Protein 6.5 g/dL (6.6-8.7) L 11/20/23 04:53 Albumin 3.9 g/dL (3.5-5.2) 11/20/23 04:53 Globulin 2.6 g/dL (1.3-4.6) 11/20/23 04:53 Triglycerides 250 mg/dL (0-150) H 11/20/23 04:53 Cholesterol 189 mg/dL (0-200) 11/20/23 04:53 LDL Cholesterol, Calc 93 mg/dL (50-129) 11/20/23 04:53 Total VLDL Cholesterol 50 mg/dL (0-30) H 11/20/23 04:53 HDL Cholesterol 46 mg/dL (60-100) L 11/20/23 04:53 Cholesterol/HDL Ratio 4.11 mg/dL (0.0-4.40) 11/20/23 04:53 Vitamin B12 1722 pg/mL (232-1245) H 11/19/23 01:10 Folate 19.1 ng/mL (4.8-37.3) 11/20/23 04:53 TSH 1.31 uIU/mL (0.27-4.20) 11/19/23 01:10 Urine Color Yellow (Yellow) 11/18/23 20:25 Urine Appearance Cloudy (CLEAR) A 11/18/23 20:25 Urine pH 5 (5-7) 11/18/23 20:25 Ur Specific [place] 1.020 (1.005-1.030) 11/18/23 20:25 Urine Protein Neg (Negative) 11/18/23 20:25 Urine Glucose (UA) Norm (Normal) 11/18/23 20:25 Urine Ketones Negative (Negative) 11/18/23 20:25 Urine Blood Trace (Negative) H 11/18/23 20:25 Urine Nitrate Negative (Negative) 11/18/23 20:25 Urine Bilirubin Neg (Negative) 11/18/23 20:25 Urine Urobilinogen Neg mg/dL (Negative) 11/18/23 20:25 Ur Leukocyte Esterase 2+ (Negative) H 11/18/23 20:25 Urine RBC 0-4 /hpf (0-2) H 11/18/23 20:25 Urine WBC 25-40 /hpf (0-5) H 11/18/23 20:25 Ur Squamous Epith Cells 3-5 /hpf (0-5) 11/18/23 20:25 Amorphous Sediment Not Reportable 11/18/23 20:25 Urine Bacteria 3+ /hpf (NONE) H 11/18/23 20:25 Hyaline Casts 0-4 /lpf H 11/18/23 20:25 Vitals Last Vital Signs Temp 97.6 F 11/20/23 11:41 Pulse 86 11/20/23 11:41 Resp 17 11/20/23 11:41 BP 122/67 11/20/23 11:41 Pulse Ox 100 11/20/23 11:41 O2 Del Method Room Air 11/20/23 11:41 Discharge Plan Discharge Patient Disposition: Home Condition: Stable Prescriptions: Continued levothyroxine 88 mcg capsule 88 mcg PO DAILY lovastatin 10 mg tablet 10 mg PO DAILY Ocuvite Adult 50 Plus 250-5-1 mg capsule 1 cap PO DAILY Centrum Silver 0.4-300-250 mg-mcg-mcg tablet 1 tab PO DAILY Citracal Plus Bone Density 300-200-13.5 mg-unit-mg tablet 1 tab PO BID cholecalciferol (vitamin D3) 1,250 mcg (50,000 unit) capsule 1,250 mcg PO BID melatonin 3 mg capsule 1.5 mg PO DAILY Mylanta Maximum Strength 400-400-40 mg/5 mL suspension 5 ml PO QID PRN (Reason: Acid Reflux) montelukast 10 mg tablet 10 mg PO DAILY ketoconazole 2 % shampoo 1 applic topical .2x weekly Qty: 120 6RF Rx Instructions: Lather into scalp 2-3 times weekly. Allow to sit on scalp for 5 minutes before rinsing. [place] LEG CRAMP 1 tab PO DAILY PRN (Reason: LEG CRAMP) magnesium 250 mg tablet 250 mg PO DAILY doxycycline hyclate 100 mg tablet 100 mg PO BID Qty: 60 4RF pantoprazole 40 mg Tablet,Delayed Release (Dr/Ec) 40 mg PO BID dorzolamide-timolol 22.3-6.8 mg/mL drops 1 drp ophthalmic (eye) BID Vitamin B-12 2,500 mcg Tablet, Sublingual 2,500 mcg PO DAILY Changed potassium gluconate 595 mg (99 mg) tablet 595 mg PO DAILY PRN (Reason: With diuretic) Qty: 1 0RF Rx Instructions: Change to as needed only, woth diuretic. amlodipine 10 mg tablet 10 mg PO DAILY PRN (Reason: Blood Pressure) Qty: 1 0RF Rx Instructions: Only if SBP >150 or DBP >90 Held lisinopril 20 mg tablet 20 mg PO DAILY Qty: 90 3RF Hold Instructions: Resume on 12/04/23. Discontinued meloxicam 15 mg tablet 15 mg PO DAILY paroxetine HCl 10 mg tablet 10 mg PO DAILY Discharge Orders: Discharge Order (Routine); Ordered 11/20/23 Ordered By: Mckinley Davis Referrals: Thomas Howe MD [Primary Care Provider] - 4-7 days Discharge Activity: As per PT/OT instructions Patient Instructions: Opioid Safety Activity Restrictions/Additional Instructions: Please do not take meloxicam or any other NSAIDs due to risk of kidney injury, Tylenol is okay if needed for aches and pains as discussed. While your kidney function is recovering hold lisinopril as well, have your primary doctor recheck your kidney function, blood pressures, consider if resuming lisinopril is needed. As discussed amlodipine can cause lower extremity swelling, overall your blood pressure runs normal to episodically high, please monitor your blood pressure at least 3 times daily, he can take amlodipine on as-needed basis in case blood pressures more than 150 top number or 90 bottom number. Please hold Lasix for now and take only in case you have symptoms of congestive heart failure including shortness of breath with exertion, shortness of breath with laying flat in addition to lower extremity edema. Do not take for swelling of legs alone. Consider compression stockings, elevating her extremities as discussed to avoid chance of dehydration, kidney injury. Please stop potassium, take only if taking diuretic. Seek medical attention in case of any worsening or new concerning symptoms. Discharge Attestations Time Spent in Discharge Care*: greater than 30 min Quality Metrics Clinical Quality Measures [ No reported AMI, CVA or VTE this stay] Coding Level of Care Code 68991 Total time (in minutes) for Discharge: 50 Diagnoses Acute renal failure, unspecified acute renal failure type N17.9 Acute renal failure type: unspecified Dehydration E86.0 Hyperkalemia E87.5 Recurrent UTI N39.0 Primary hypertension I10 Hypertension type: primary hypertension Acquired hypothyroidism E03.9 GERD without esophagitis K21.9 Mixed dyslipidemia E78.2 Hyponatremia E87.1
--- NOTE | 2023-11-20 13:05 | PC.SOCIAL ---
IMM Updated Updated pt on IMM. No questions voiced. Provided pt a copy. Initialed, dated, & timed a copy & placed in chart.
[2023-11-20 13:44] VITALS: BP 122/67; PULSE 86; RESP 17; TEMP 36.4; O2SAT 100
== END 2023-11-20 13:45 | disposition home or self-care (01) | DRG 683 ==
LOC: ER 20:28 → MEDSURG 20:43
PROVIDERS: Student in an Organized Health Care Education/Training Program; Admitting Provider Family Medicine; Emergency Provider Emergency Medicine; PCP Family Medicine; Visit Provider Internal Medicine
DX: N17.9 Acute kidney failure, unspecified (principal); E87.1 Hypo-osmolality and hyponatremia; E86.0 Dehydration; E87.5 Hyperkalemia; I11.0 Hypertensive heart disease with heart failure; I50.9 Heart failure, unspecified; E03.9 Hypothyroidism, unspecified; K21.9 Gastro-esophageal reflux disease without esophagitis; E78.5 Hyperlipidemia, unspecified; M19.90 Unspecified osteoarthritis, unspecified site; Z79.899 Other long term (current) drug therapy; N30.20 Other chronic cystitis without hematuria
CPT/HCPCS: 36415; 71045; 74176; 80053; 80061; 81001; 82607; 82746; 83036; 83540; 83550; 83605; 83735; 84443; 84484; 85025; 86140; 87040; 87077; 87086; 87186; 93005; 96360; 96372; 97116; 97161; 99285; J0696; J1644; J7030

== ENCOUNTER 2024-01-01 08:07 | Outpatient (CLI) | payer MEDICARE, OTHER, SELFPAY ==
--- NOTE | 2024-01-01 08:12 | MM_ITS ---
WS: [id number] BILATERAL SCREENING DIGITAL TOMOSYNTHESIS MAMMOGRAM WITH CAD HISTORY: SCREENING COMPARISON: 12/13/2022, 12/06/2021, 12/02/2020 Bilateral CC and MLO views with tomosynthesis and synthetic mammography submitted. Computer aided det ection analyzed. Breast composition: The breasts are heterogeneously dense, which may obscure small masses. No suspici ous masses, microcalcifications or architectural distortion. Extensive arterial calcification and a f ew scattered benign calcifications. The asymmetries are stable. MM/[place] [id number] IMPRESSION: BI-RADS: 2 - Benign. FOLLOW UP: 1 Year Follow-up
== END 2024-01-01 08:08 | disposition home or self-care (01) ==
LOC: RAD 08:07
PROVIDERS: PCP Family Medicine; Visit Provider Family Medicine
DX: Z12.31 Encounter for screening mammogram for malignant neoplasm of breast (principal)
CPT/HCPCS: 77063; 77067

== ENCOUNTER → 2024-01-23 11:02 | Outpatient (BNVA) | payer MEDICARE, OTHER, SELFPAY | PROVIDERS: PCP Family Medicine; Visit Provider Nurse Practitioner Family | DX: L82.1 Other seborrheic keratosis (principal); L81.4 Other melanin hyperpigmentation; D18.01 Hemangioma of skin and subcutaneous tissue; L57.0 Actinic keratosis; L82.0 Inflamed seborrheic keratosis; L57.8 Other skin changes due to chronic exposure to nonionizing radiation; Z85.828 Personal history of other malignant neoplasm of skin | CPT/HCPCS: 17000; 17110; 99213 ==

== ENCOUNTER 2024-01-28 18:12 | Emergency (ER) | payer MEDICARE, OTHER, SELFPAY ==
[2024-01-28 18:18] VITALS: BP 176/95; PULSE 79; RESP 18; TEMP 36.8; O2SAT 97; BMI 24.4
--- NOTE | 2024-01-28 18:21 | XRR_ITS ---
PROCEDURE INFORMATION: Exam: XR Chest Exam date and time: 01/28/2024 7:25 PM Age: 83 years old Clinical indication: Pain; Chest pressure; Patient HX: SOB; Chest heaviness/pressure TECHNIQUE: Imaging protocol: Radiologic exam of the chest. Views: 1 view. COMPARISON: CR XR chest 1V portable [id number] 11/18/2023 7:09 PM FINDINGS: Lungs: Several right kidney calcified benign granulomas. Pleural spaces: Unremarkable. No pleural effusion. No pneumothorax. Heart/Mediastinum: Cardiomegaly. Vasculature: Aortic atherosclerotic calcifications. Bones/joints: Unremarkable. XR/XR chest 1V portable [id number] IMPRESSION: 1. Negative for infiltrate. 2. Cardiomegaly. 3. Several right kidney calcified benign granulomas. 4. Aortic atherosclerotic calcifications.
--- NOTE | 2024-01-28 19:24 | ED_ITS ---
HPI - Chest Pain 2 General: Chief Complaint: Chest Pain Stated Complaint: CP heavyness trouble breathing Time Seen by Provider: 01/28/24 19:03 History of Present Illness: 83-year-old female who presents to the e mergeky[facility] room with generalized weakness, lightheadedness, chest discomfort that has been going on for about a week now. She had talked to a daughter who is an RN who told her she needed to come to the emergency room to be evaluated. No known fevers. No altered mental status. No focal motor deficits. She has some very trace pedal edema. No abdominal pain. No nausea or vomiting. Related Data Home Medications Medication Instructions Recorded Confirmed aluminum-mag hydroxide-simethicone 5 ml PO QID PRN Acid Reflux 06/18/19 11/18/23 400 mg-400 mg-40 mg/5 mL oral susp (Mylanta Maximum Strength) calcium carb,cit 300 mg-D3 200 1 tab PO BID 06/18/19 11/18/23 unit-min no.34-genistein 13.5 mg tablet (Citracal Plus Bone Density Builder) cholecalciferol (vitamin D3) 1,250 1,250 mcg PO BID 06/18/19 11/18/23 mcg (50,000 unit) capsule levothyroxine 88 mcg capsule 88 mcg PO DAILY 06/18/19 11/18/23 lovastatin 10 mg tablet 10 mg PO DAILY 06/18/19 11/18/23 melatonin 3 mg capsule 1.5 mg PO DAILY 06/18/19 11/18/23 frjzrtcd-ied-xrfgk acid 0.4 1 tab PO DAILY 06/18/19 11/18/23 mg-lycopene 300 mcg-lutein 250 mcg tablet (Centrum Silver) vit C,E,zinc,copper-yobbk4f 250 1 cap PO DAILY 06/18/19 11/18/23 mg-lutein 5 mg-zeaxanthin 1 mg capsule (Ocuvite Adult 50 Plus) montelukast 10 mg tablet 10 mg PO DAILY 03/09/21 11/18/23 [place] LEG CRAMP 1 tab PO DAILY PRN LEG CRAMP 06/16/22 11/18/23 dorzolamide 22.3 mg-timolol 6.8 1 drp ophthalmic (eye) BID 01/01/23 11/18/23 mg/mL eye drops pantoprazole 40 mg tablet,delayed 40 mg PO BID 01/01/23 11/18/23 release magnesium 250 mg tablet 250 mg PO DAILY 08/09/23 11/18/23 cyanocobalamin (vitamin B-12) 2,500 mcg PO DAILY 11/18/23 11/18/23 2,500 mcg sublingual tablet (Vitamin B-12) Previous Rx's Medication Instructions Recorded lisinopril 20 mg tablet 20 mg PO DAILY #90 tabs 03/09/22 ketoconazole 2 % shampoo 1 applic topical .2x weekly #120 mL 03/21/22 doxycycline hyclate 100 mg tablet 100 mg PO BID #60 tabs 09/08/22 amlodipine 10 mg tablet 10 mg PO DAILY PRN Blood Pressure 11/20/23 #1 tab potassium gluconate 595 mg (99 mg) 595 mg PO DAILY PRN With diuretic 11/20/23 tablet #1 tab azithromycin 250 mg tablet See Rx Instructions PO .COMPLEX #6 01/28/24 (Zithromax Z-Marcelino) tabs cefdinir 300 mg capsule 300 mg PO BID 7 days #14 caps 01/28/24 Allergies Allergy/AdvReac Type Severity Reaction Status Date / Time codeine Allergy NA Verified 01/28/24 18:21 naproxen [From Aleve] Allergy NA Verified 01/28/24 18:21 nitrofurantoin Allergy NA Verified 01/28/24 18:21 [From Macrobid] Sulfa (Sulfonamide Allergy NA Verified 01/28/24 18:21 Antibiotics) sulfamethoxazole Allergy Unknown Verified 01/28/24 18:21 [From Sulfamethoxazole-Trimethoprim] trimethoprim Allergy Unknown Verified 01/28/24 18:21 [From Sulfamethoxazole-Trimethoprim] Review of Systems 2 Narrative: Constitutional symptoms: Negative except as documented in HPI. Skin symptoms: Negative except as documented in HPI. Eye symptoms: Negative except as documented in HPI. ENMT symptoms: Negative except as documented in HPI. Respiratory symptoms: Negative except as documented in HPI. Cardiovascular symptoms: Negative except as documented in HPI. Gastrointestinal symptoms: Negative except as documented in HPI. Genitourinary symptoms: Negative except as documented in HPI. Musculoskeletal symptoms: Negative except as documented in HPI. Neurologic symptoms: Negative except as documented in HPI. Psychiatric symptoms: Negative except as documented in HPI. Endocrine symptoms: Negative except as documented in HPI. PFSH ED 2 PFSH: Medical History Hypertension Recurrent UTI Chronic cystitis Surgical History Hx of cataract surgery H/O total hysterectomy S/P colon resection History of lumpectomy of left breast Family History Father , 79 Dementia Mother , 38 Cancer Social History Smoking and tobacco/nicotine status: never used tobacco/nicotine Alcohol intake: never Substance/Drug Use: never Marital status: / Current occupational status: retired Physical Exam 2 Narrative: EXAM NARRATIVE: General: Alert, no acute distress. Skin: Warm, dry. Head: Normocephalic, atraumatic. Neck: Supple, trachea midline. Eye: Extraocular movements are intact. Ears, nose, mouth and throat: mucosa moist. Trace pedal edema Cardiovascular: Regular, Normal peripheral perfusion. Respiratory: Lungs are clear to auscultation, respirations are non-labored, breath sounds are equal, Symmetrical chest wall expansion. Gastrointestinal: Soft, Nontender, Non distended Musculoskeletal: Normal ROM, no deformity. Neurological: Alert and oriented, No focal neurological deficit observed. Psychiatric: Cooperative, appropriate mood & affect. Course 2 Vital Signs: Vital signs: Vital Signs Temperature 98.2 F 01/28/24 18:18 Pulse Rate 72 01/28/24 20:58 Respiratory Rate 21 H 01/28/24 20:58 Blood Pressure 199/97 01/28/24 20:58 Pulse Oximetry 99 01/28/24 20:58 Oxygen Delivery Me thod Room Air 01/28/24 20:58 MDM - Chest Pain Medical Decision Making Differential diagnosis for patient with chest pain includes but is not limited to and based on the above HPI, review of systems and physical exam: Pneumonia. unstable angina. angina. Acute coronary syndrome / CT. Pulmonary embolism. Costochondritis / musculoskeletal. Pleurisy. Pericarditis. Esophageal spasm. Pancreatis. Cholecystitis. Orders placed to evaluate differential diagnosis based on the above differential, HPI and physical exam EKG: Time 2006. Rate 75. Normal sinus rhythm, No ST-T changes, no ectopy, left bundle branch block, This was reviewed and interpreted by myself the ER physician at 2009 Chest x-ray: No acute process. No infiltrate. No pneumothorax. This was reviewed and interpreted by myself the ER physician. Lab Review: Laboratory results were reviewed and interpreted by myself the emergency room physician. No leukocytosis. Hemoglobin stable 11.6. BUN and creatinine are slightly elevated at 24 and 1.2 this is slightly above previous measurements. I think she is a bit dehydrated some giving some fluids. Urine does show an active infection. Patient has some slight renal insufficiency which likely resulted in a troponin of 17. This remained the same at 2 hours. I reviewed the patient's medical record. Reexamination: Patient remained stable. No increased work of breathing. No altered mental status. No focal motor deficits. Assessment and plan: Urinary tract infection Hypertension Dehydration ?IV Rocephin, IV hydralazine and a normal saline bolus. - Discharged home - Discussed findings and plan with patient. Answered any questions. - All laboratory values were reviewed and interpreted personally by myself, the ER physician - All imaging was reviewed and interpreted personally by myself, the ER physician. - Evaluation and treatment of this problem were appropriate in the emergency setting Lab Data 01/28/24 19:15 01/28/24 19:15 Radiology Impressions Chest X-Ray 01/28/24 18:21 IMPRESSION: 1. Negative for infiltrate. 2. Cardiomegaly. 3. Several right kidney calcified benign granulomas. 4. Aortic atherosclerotic calcifications. Laboratory Results WBC 5.07 10^3/uL (3.29-11.43) 01/28/24 19:15 RBC 3.63 10^6/uL (3.85-5.65) L 01/28/24 19:15 Hgb 11.60 g/dL (11.27-16.99) 01/28/24 19:15 Hct 35.7 % (36-47) L 01/28/24 19:15 MCV 98.3 fl (85-98) H 01/28/24 19:15 MCH 32.0 pg (27-33) 01/28/24 19:15 MCHC 32.5 g/dL (30-55) 01/28/24 19:15 RDW 12.4 % (12.1-15.1) 01/28/24 19:15 Plt Count 296 10^3/cmm (157-399) 01/28/24 19:15 MPV 8.5 fL (7.4-10.4) 01/28/24 19:15 Neut % (Auto) 55.7 % 01/28/24 19:15 Lymph % (Auto) 30.0 % 01/28/24 19:15 [place] % (Auto) 9.9 % 01/28/24 19:15 Eos % (Auto) 3.0 % 01/28/24 19:15 Baso % (Auto) 1.2 % 01/28/24 19:15 Neut # (Auto) 2.83 10^3/uL (1.8-7.7) 01/28/24 19:15 Lymph # (Auto) 1.5 10^3/uL (0.8-4.8) 01/28/24 19:15 [place] # (Auto) 0.5 10^3/uL (0.2-0.9) 01/28/24 19:15 Eos # (Auto) 0.2 10^3/uL (0.0-0.8) 01/28/24 19:15 Baso # (Auto) 0.1 10^3/uL (0.0-0.1) 01/28/24 19:15 Nucleated RBC % (auto) 0 % 01/28/24 19:15 Nucleated RBCs # 0.0 /100WBC 01/28/24 19:15 Sodium 137 mmol/L (136-145) 01/28/24 19:15 Potassium 4.3 mmol/L (3.5-5.1) 01/28/24 19:15 Chloride 100 mmol/L (98-107) 01/28/24 19:15 Carbon Dioxide 26 mmol/L (22-29) 01/28/24 19:15 Anion Gap 15.3 (5-19) 01/28/24 19:15 BUN 24 mg/dL (8-23) H 01/28/24 19:15 Creatinine 1.2 mg/dL (0.5-0.9) H 01/28/24 19:15 GFR Calculation Not Reportable 01/28/24 19:15 Glucose 101 mg/dL (65-115) 01/28/24 19:15 Calculated Osmolality 288 mOsm/kg (285-295) 01/28/24 19:15 Calcium 9.7 mg/dL (8.5-10.5) 01/28/24 19:15 Total Bilirubin 0.2 mg/dL (0.15-1.2) 01/28/24 19:15 AST 21 U/L (0-32) 01/28/24 19:15 ALT 16 U/L (0-33) 01/28/24 19:15 Alkaline Phosphatase 66 U/L (35-105) 01/28/24 19:15 Troponin T Baseline 17 ng/L (0-10) H 01/28/24 19:15 Troponin T 120 Minute 16.37 ng/L (0-10) H 01/28/24 20:52 Delta Troponin T -0.63 ABS# (0-10) L 01/28/24 20:52 NT-Pro-B Natriuret Pep 534 pg/mL (0-450) H 01/28/24 19:15 Total Protein 7.2 g/dL (6.6-8.7) 01/28/24 19:15 Albumin 4.6 g/dL (3.5-5.2) 01/28/24 19:15 Globulin 2.6 g/dL (1.3-4.6) 01/28/24 19:15 Urine Color Yellow (Yellow) 01/28/24 19:06 Urine Appearance Clear (CLEAR) 01/28/24 19:06 Urine pH 6.5 (5-7) 01/28/24 19:06 Ur Specific [place] 1.010 (1.005-1.030) 01/28/24 19:06 Urine Protein Negative (Negative) 01/28/24 19:06 Urine Glucose (UA) Negative (Normal) 01/28/24 19:06 Urine Ketones Negative (Negative) 01/28/24 19: Urine Blood Negative (Negative) 01/28/24 19: Urine Nitrate Negative (Negative) 01/28/24 19:06 Urine Bilirubin Negative (Negative) 01/28/24 19:06 Urine Urobilinogen 0.2 mg/dL (Negative) 01/28/24 19:06 Ur Leukocyte Esterase 3+ (Negative) A 01/28/24 19: Urine RBC 0-4 /hpf (0-2) H 01/28/24 19:06 Urine WBC 15-25 /hpf (0-5) H 01/28/24 19:06 Ur Squamous Epith Cells 0-4 /hpf (0-5) H 01/28/24 19:06 Amorphous Sediment Not Reportable 01/28/24 19:06 Urine Bacteria Trace /hpf (NONE) 01/28/24 19:06 All radiology interpretation(s) finalized by discharge Discharge Plan Discharge Patient Disposition: Home Clinical Impression: Urinary tract infection, Hypertension, Non-cardiac chest pain Condition: Stable Prescriptions: New azithromycin [Zithromax Z-Marcelino] 250 mg tablet See Rx Instructions .ROUTE .COMPLEX Qty: 6 0RF Rx Instructions: For 250 mg dose pack: take 500 mg today (day 1), then 250 mg for 4 days (days 2-5) cefdinir 300 mg capsule 300 mg PO BID 7 Days Qty: 14 0RF No Action levothyroxine 88 mcg capsule 88 mcg PO DAILY lovastatin 10 mg tablet 10 mg PO DAILY Ocuvite Adult 50 Plus 250-5-1 mg capsule 1 cap PO DAILY Centrum Silver 0.4-300-250 mg-mcg-mcg tablet 1 tab PO DAILY Citracal Plus Bone Density 300-200-13.5 mg-unit-mg tablet 1 tab PO BID cholecalciferol (vitamin D3) 1,250 mcg (50,000 unit) capsule 1,250 mcg PO BID melatonin 3 mg capsule 1.5 mg PO DAILY Mylanta Maximum Strength 400-400-40 mg/5 mL suspension 5 ml PO QID PRN (Reason: Acid Reflux) montelukast 10 mg tablet 10 mg PO DAILY ketoconazole 2 % shampoo 1 applic topical .2x weekly Qty: 120 6RF Rx Instructions: Lather into scalp 2-3 times weekly. Allow to sit on scalp for 5 minutes before rinsing. [place] LEG CRAMP 1 tab PO DAILY PRN (Reason: LEG CRAMP) magnesium 250 mg tablet 250 mg PO DAILY lisinopril 20 mg tablet 20 mg PO DAILY Qty: 90 3RF Hold Instructions: Resume on 12/04/23. doxycycline hyclate 100 mg tablet 100 mg PO BID Qty: 60 4RF pantoprazole 40 mg Tablet,Delayed Release (Dr/Ec) 40 mg PO BID dorzolamide-timolol 22.3-6.8 mg/mL drops 1 drp ophthalmic (eye) BID Vitamin B-12 2,500 mcg Tablet, Sublingual 2,500 mcg PO DAILY amlodipine 10 mg tablet 10 mg PO DAILY PRN (Reason: Blood Pressure) Qty: 1 0RF Rx Instructions: Only if SBP >150 or DBP >90 potassium gluconate 595 mg (99 mg) tablet 595 mg PO DAILY PRN (Reason: With diuretic) Qty: 1 0RF Rx Instructions: Change to as needed only, woth diuretic. Discharge Orders: Discharge ED (Routine); Ordered 01/28/24 Ordered By: Radha Mayorga Referrals: Thomas Howe MD [Primary Care Provider] - Discharge Diet: Usual diet Discharge Activity: Increase activity as tolerated Patient Instructions: Urinary Tract Infection in Older Adults (ED) Activity Restrictions/Additional Instructions: Thank you for choosing [facility] for your healthcare needs today. Please realize this is an emergency room and that we are providing you with a medical screening exam and this may not be complete and all inclusive of all the testing and or work up that you may need to determine your ailment or severity of your illness. You have been screened and evaluated and felt safe for discharge. Health conditions do change or evolve sometimes and as such it is important that you follow up with your Primary Doctor to be re checked, 3-5 days is a general good time frame for follow up. You are always welcome to return to the ED for re assessment if your symptoms are worsening or you have new concerns Coding Level of Care Code ED Ball Winder for Hermann Mao
[2024-01-28 19:28] LABS: Basophils # 0.1 10^3/uL (0.0-0.1); Basophils % 1.2 %; Eosinophils # 0.2 10^3/uL (0.0-0.8); Hematocrit 35.7 % (36-47); Lymphocytes # 1.5 10^3/uL (0.8-4.8); Mean Corpuscular HGB Conc 32.5 g/dL (30-55); Mean Corpuscular Volume 98.3 fl (85-98); Mean Platelet Volume 8.5 fL (7.4-10.4); Monocytes # 0.5 10^3/uL (0.2-0.9); Monocytes % 9.9 %; Neutrophils # 2.83 10^3/uL (1.8-7.7); Neutrophils % 55.7 %; Nucleated Red Blood Cells % 0 %; Platelet Count 296 10^3/cmm (157-399); Red Blood Count 3.63 10^6/uL (3.85-5.65); Red Cell Distribution Width 12.4 % (12.1-15.1); White Blood Count 5.07 10^3/uL (3.29-11.43)
[2024-01-28 19:49] VITALS: BP 175/81; PULSE 71; O2SAT 96
[2024-01-28 19:50] LABS: Troponin(5th) Baseline 17 ng/L (0-10)
[2024-01-28 19:58] LABS: Alanine Aminotransferase 16 U/L (0-33); Albumin Level 4.6 g/dL (3.5-5.2); Alkaline Phosphatase 66 U/L (35-105); Anion Gap 15.3 (5-19); Aspartate Amino Transferase 21 U/L (0-32); Blood Urea Nitrogen 24 mg/dL (8-23); Calcium 9.7 mg/dL (8.5-10.5); Carbon Dioxide 26 mmol/L (22-29); Chloride 100 mmol/L (98-107); Globulin 2.6 g/dL (1.3-4.6); Glucose 101 mg/dL (65-115); NT Pro B Type Natriuretic Pept 534 pg/mL (0-450); Osmolality Calculated 288 mOsm/kg (285-295); Potassium 4.3 mmol/L (3.5-5.1); Sodium 137 mmol/L (136-145); Total Bilirubin 0.2 mg/dL (0.15-1.2); Total Protein 7.2 g/dL (6.6-8.7)
[2024-01-28 19:59] LABS: Creatinine Clr Calc Pharmacy 34.7332
--- NOTE | 2024-01-28 20:07 | ECG_ITS ---
[facility] Test Date: 2024-01-28 Pat Name: Dionna Concepcion Department: Room: Gender: Female [employer]: : 1940 Requested By: Radha Swan Order Number: [id number] Dave MD: Michel Vega M.D. Measurements Intervals [place] Rate: 75 P: -1 TN: 193 QRS: -51 QRSD: 134 T: 118 QT: 400 QTc: 448 Interpretive Statements SINUS RHYTHM LEFT AXIS DEVIATION [QRS AXIS < -30] LEFT BUNDLE BRANCH BLOCK [120+ ms QRS DURATION, 80+ ms Q/S IN V1/V2, 85+ ms R IN I/aVL/V5/V6] Compared to ECG 01/28/2024 18:11:43 No significant changes Electronically Signed On 01-28-2024 22:48:45 CDT by Michel Vega M.D. [id number]
--- NOTE | 2024-01-28 20:21 | ECG_ITS ---
[facility] Test Date: 2024-01-28 Pat Name: Dionna Concepcion Department: Room: Gender: Female Pcu Rn: : 1940 Requested By: Radha Swan Order Number: [id number] Dave MD: Michel Vega M.D. Measurements Intervals [place] Rate: 76 P: 42 OK: 208 QRS: -57 QRSD: 127 T: 117 QT: 373 QTc: 419 Interpretive Statements SINUS RHYTHM LEFT AXIS DEVIATION [QRS AXIS < -30] LEFT BUNDLE BRANCH BLOCK [120+ ms QRS DURATION, 80+ ms Q/S IN V1/V2, 85+ ms R IN I/aVL/V5/V6] Compared to ECG 11/19/2023 01:57:36 No significant changes Electronically Signed On 01-28-2024 23:04:51 CDT by Michel Vega M.D. [id number]
[2024-01-28 20:55] LABS: Bilirubin Urine Negative (Negative); Blood Urine Negative (Negative); Glucose Urine UA Negative (Normal); Ketones Urine Negative (Negative); Leukocyte Esterase Urine 3+ (Negative); Nitrate Urine Negative (Negative); Protein Urine Negative (Negative); Urine Appearance Clear (CLEAR); Urine Color Yellow (Yellow); Urobilinogen Urine 0.2 mg/dL (Negative); pH Urine 6.5 (5-7)
[2024-01-28 20:58] VITALS: BP 199/97; PULSE 72; RESP 21; O2SAT 99
[2024-01-28 21:09] LABS: RBC Urine 0-4 /hpf (0-2); Squamous Epithelial Cell Urine 0-4 /hpf (0-5); WBC Urine 15-25 /hpf (0-5)
[2024-01-28 21:10] LABS: Bacteria Urine TRACE /hpf
[2024-01-28 21:11] LABS: Add Urine Culture? Yes
[2024-01-28 21:38] LABS: Troponin 5 2HR 16.37 ng/L (0-10)
[2024-01-28 21:39] LABS: Troponin 5 2HR Delta -0.63 ABS# (0-10)
[2024-01-28] MEDS: hyDRALAzine 20 mg/mL INJ 1 mL 10 MG IVP (21:40)
[2024-01-28] MEDS: cefTRIAXone 1,000 mg SDV 1000 MG IVP (21:42)
[2024-01-28] MEDS: sodium chloride 0.9% 500 ML 999 ML IV (21:46)
[2024-01-28 22:00] VITALS: BP 165/79; PULSE 85; RESP 18; O2SAT 96
[2024-01-28 22:19] VITALS: BP 191/84; PULSE 96; RESP 22; O2SAT 98
[2024-01-28] MEDS: labetalol 5 mg/mL SDV 20mL 10 MG IVP (22:19)
[2024-01-28 22:30] VITALS: BP 148/67; PULSE 78; RESP 17; O2SAT 96
[2024-01-29 06:00] VITALS: BP 148/67; PULSE 78; O2SAT 96
== END 2024-01-28 23:45 | disposition home or self-care (01) ==
PROVIDERS: Emergency Provider Emergency Medicine; PCP Family Medicine
DX: R07.89 Other chest pain (principal); N39.0 Urinary tract infection, site not specified; I10 Essential (primary) hypertension; I44.7 Left bundle-branch block, unspecified; Z87.440 Personal history of urinary (tract) infections
CPT/HCPCS: 36415; 71045; 80053; 81001; 83880; 84484; 85025; 87086; 93005; 96374; 96375; 99285; J0360; J0696; J3490; J7040

== ENCOUNTER → 2024-08-07 13:01 | Outpatient (BNVA) | payer MEDICARE, OTHER, SELFPAY | PROVIDERS: PCP Family Medicine; Visit Provider Internal Medicine | DX: R07.89 Other chest pain (principal); R06.00 Dyspnea, unspecified; I10 Essential (primary) hypertension | CPT/HCPCS: 99213 ==

== ENCOUNTER 2024-11-17 09:21 | Emergency (ER) | payer MEDICARE, OTHER, SELFPAY ==
[2024-11-17 09:23] VITALS: BP 184/85; PULSE 71; RESP 16; TEMP 36.9; O2SAT 96; BMI 28.3
--- NOTE | 2024-11-17 09:25 | CTR_ITS ---
PROCEDURE INFORMATION: Exam: CT Head Without Contrast Exam date and time: 11/17/2024 9:37 AM Age: 84 years old Clinical indication: Dizziness; Additional info: Dizzy TECHNIQUE: Imaging protocol: Computed tomography of the head without contrast. Radiation optimization: All CT scans at this facility use at least one of these dose optimization techniques: automated exposure control; mA and/or kV adjustment per patient size (includes targeted exams where dose is matched to clinical indication); or iterative reconstruction. COMPARISON: CT head wo con* [id number] 01/01/2023 4:19 PM RADIATION DOSE METRICS: Total DLP (mGy-cm): 1073.78 FINDINGS: Brain: Periventricular hypodensities are nonspecific and likely representing mild small vessel ischemic changes. No midline shift or acute intracranial hemorrhage. Degree of central atrophy is out of proportion with respect to the cortical atrophy. There is cortical and central atrophy. Cerebral ventricles: No ventriculomegaly. Paranasal sinuses: Visualized sinuses are unremarkable. No fluid levels. Mastoid air cells: Visualized mastoid air cells are well aerated. Bones: Unremarkable. No acute fracture. Soft tissues: Unremarkable. CT/CT head wo con* [id number] IMPRESSION: 1. No acute intracranial finding. 2. Degree of central atrophy is out of proportion with respect to the cortical atrophy. Consider NPH. Clinical correlation is advised. 3. Likely mild small-vessel ischemic changes.
--- NOTE | 2024-11-17 09:25 | ECG_ITS ---
[facility] Date: 2024-11-17 Pat Name: Dionna Concepcion Department: Room: Gender: Female Psych Assistant: : 1940 Requested By: Es Simon Order Number: [id number] Dave MD: Jake Heller M.D. Measurements Intervals [place] Rate: 67 P: 7 NE: 190 QRS: -50 QRSD: 143 T: 119 QT: 408 QTc: 434 Interpretive Statements SINUS RHYTHM WITH OCCASIONAL SUPRAVENTRICULAR PREMATURE COMPLEXES LEFT AXIS DEVIATION [QRS AXIS < -30] LEFT BUNDLE BRANCH BLOCK [120+ ms QRS DURATION, 80+ ms Q/S IN V1/V2, 85+ ms R IN I/aVL/V5/V6] Compared to ECG 01/28/2024 20:07:27 Supraventricular complex is new Electronically Signed On 11-17-2024 15:44:54 CDT by Pina [email or web address]
--- NOTE | 2024-11-17 09:25 | XRR_ITS ---
PROCEDURE INFORMATION: Exam: XR Chest Exam date and time: 11/17/2024 9:32 AM Age: 84 years old Clinical indication: Other: Dizzy TECHNIQUE: Imaging protocol: Radiologic exam of the chest. Views: 1 view. COMPARISON: CR (CHEST, ) 01/28/2024 7:25 PM FINDINGS: Lungs: Pulmonary vessels are within normal limits. Calcified right pulmonary granuloma. Left lung is clear. Pleural spaces: No pneumothorax. Heart/Mediastinum: Cardiomediastinal silhouette is within normal limits. Bones/joints: Unremarkable. XR/XR chest 1V portable [id number] IMPRESSION: No acute pulmonary finding.
--- OUTSIDE RECORDS SUMMARY | 2024-11-17 09:25 | XMS_ITS | Patient Health Record ---
Author Organization [facility] Address [address] [place], [place] [id number] Care Team Providers Care Primary Clinician Name Role Phone Shyam DALLAS, Thomas Primary Care Provider Jorge Luis Thao MD, Johnny Donaldson [phone] Allergies Allergen (clinical drug ingredient) Drug/Non Drug Allergy documented on EMR Reaction Allergy Type Onset Date Status sulfa (uncoded) eczema, nausea Allergy Active sulfamethoxazole / trimethoprim Bactrim Unknown Drug Allergy Active nitrofurantoin, macrocrystals / nitrofurantoin, monohydrate Macrobid Unknown Drug Allergy Active naproxen Aleve heart skip beats Drug Allergy Active codeine codeine sick to stomach Drug Allergy A ctive ibuprofen stomach irritation Drug Allergy Active naproxen palpitations Drug Allergy Acti ve cephalexin cephalexin nausea Drug Allergy Activ e nitrofurantoin nitrofurantoin sick to stomach Drug Allergy Active Reason For Referral No Information Medications Medication SIG (Take, Route, Frequency, Duration) Notes Start Date End Date Status magnesium oxide 400 mg orally as directed Active Vitamin B-12 250 mcg 1 tab(s) orally onc e a day for 30 day(s) Active Melatonin 3 mg 1 tab orally as directed Active Vitamin D3 1000 intl units 1 tab orally as directed Act issac predniSONE 5 mg 1 tab orally once a day Active lovastatin 10 mg 1 tab orally once a day Active Prevnar 13 - 0.5 mL intramuscular ly once for 1 dose(s) Active levothyroxine 100 mcg (0.1 mg) 1 tab orally once a day Acti ve Potassium Gluconate 99 mg as directed Active lisinopril 20 mg 1 tab orally once a day Active Iron 100 Plus Vitamin B Complex with C, Folic Acid and Iron 1 tab(s) orally once a day for 30 day(s) Active One-A-Day Women 50 Plus Multiple Vitamins with Minerals 1 tab orally once a day Acti ve Leg Cramps Active pantoprazole 40 mg 1 tab(s) orally once a day for 30 day(s) Active Citracal Petites 200 mg-250 intl units orally as directed Acti ve Mylanta Active dorzolamide ophthalmic 2% 1 gtt in each eye 3 times a day for 30 day(s) Active Ocuvite Antioxidant Multiple Vitamins and Minerals 1 tab orally once a day Acti ve acetaminophen 500 mg orally as needed/directed Active meloxicam 15 mg 1 tab po orally once daily with food Active amLODIPine 2.5 mg 1 tab orally once a day Active montelukast 10 mg 1 tab orally once a day Active Social History Tobacco Use: Social History Observation Description Date Details (start date - stop date) Never Smoker NA - NA alcohol Question Answer Notes Did you have a drink containing alcohol in the p ast year? No Points 0 Interpretation Negative Tobacco use: Question Answer Notes : nonsmoker Problems Problem Type SNOMED Code ICD Code Onset Dates Problem Status W/U Status Risk Notes Problem Lumbosacral spondylosis without myelopathy (65697378) Lumbosacral spondylosis without myelopathy (721.3) Active confirmed Problem Displacement of lumbar intervertebral disc without myelopathy (29735917) Lumbar (w/out myelopathy) intervertebral disc disorder (722.10) Active confirmed Problem Spasm (57887954) Muscle spasm (728.85) Active confirmed Problem Scoliosis (935870880) Scoliosis (737.43) Active confirmed Problem Complaining of a back symptom (381501079) Facet arthropathy/synd reshma (724.8) Active confirmed Problem Limb pain (79879350) Limb pain (729.5) Active confirmed Problem Low back pain (887429737) Low back pain (724.2) Active confirmed Problem Arthralgia of the pelvic region and thigh (021333895) Pelvic/Hip pain (719.45) Active confirmed Problem Long-term drug therapy (213465409) LONG-TERM USE MEDS NEC (V58.69) Active confirmed r/o substance abuse Problem Anxiety state (506244874) Anxiety State, other, specified: procedure related (300.09) Active confirmed Problem Solitary sacroiliitis (784211322) Sacroiliitis, not elsewhere classified (M46.1) Active confirmed Problem Low back pain (490308757) Low back pain (M54.5) Active confirmed Problem Lumbosacral spondylosis without myelopathy (85585616) Spondylosis without myelopathy or radiculopathy, lumbar region (M47.816) Active confirmed Problem Anxiety disorder (578779402) Other specified anxiety disorders (F41.8) Active confirmed Problem 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, 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 Problem Long-term current use of drug therapy (463133567) Other snf (current) drug therapy (Z79.899) Active confirmed Problem Neurogenic claudication (036016415) Spinal stenosis, lumbar region with neurogenic claudication (M48.062) Active confirmed Problem Pain in lumbar spine (146624679) Vertebrogenic low back pain (M54.51) Active confirmed Plan Of Treatment No Information Insurance Providers Payer Name Payer Address Payer Phone Subscriber Number Group Number Insured Name Patient Relationship to Insured Coverage Start Date Coverage End Date WPS Medicare Part B Claims Department [address] [address] [place] [address] [id number] Dionna Hernandez Self - patient is the insured INDIVIDUAL [employer] [address] [address] [place] [address] [id number] Dionna Hernandez Self - patient is the insured Medical (General) History Medical History History ICD Code Chronic pain Low back pain Lumbar spondylosis, disc disease, spinal stenosis and scoliosis Sacroiliitis Joint pain, shoulder Impingement syndrome Hip pain, left Knee pain, left Arthritis Osteoarthrosis Skin cancer Osteoporosis Thyroid disease Hypercholesterolemia Hypothyroidism Acid reflux Fall resulted in a brain bleed 12/2022 , hospitalized, no residual symptoms Surgical History Surgery Date(Month/Year) Oophorectomy, bilateral Lumpectomy, left breast, performed in [place], [place], 1969's Hysterectomy, abdominal, performed in [place], [place], 1988 Small intestine blockage, performed at [facility], 1991, 1992 Colonoscopy, 2001 EGD, performed at [facility] by Dr. Wadsworth, 0 10/05/11 Cataract surgery, bilateral, performed a t [facility] by Dr. Franklin, 08/30/21, 09/13/21 Hospitalization History Reason Date(Month/Year) Brain bleed, treated at [facility] in [facility] [place], 01/01/23
--- OUTSIDE RECORDS SUMMARY | 2024-11-17 09:25 | XMS_ITS | Clinical Summary ---
Author Organization [facility] Address [address] [place] [address] Phone Care Team Providers Care Charge Entry Name Role Phone Thomas Howe MD Primary Care Provider [phone] Allergies Active Allergy Reactions Criticality Noted Date Comments Cephalexin Nausea and Vomiting Low 01/01/2023 Codeine Nausea and Vomiting Low 01/01/2023 Naproxen Nausea and Vomiting Low 01/01/2023 Naproxen Sodium Nausea and Vomiting Low 08/08/2023 Nitrofurantoin Nausea and Vomiting Low 01/01/2023 Nitrofurantoin Monohyd/M-Cryst Unknown 08/07 Sulfa (Sulfonamide Antibiotics) Nausea and Vomiting Low 01/01/2023 Tizanidine Hives High 01/01/2023 Medications magnesium oxide 400 mg magnesium Tablet Take 400 mg by mouth daily. Active predniSONE (DELTASONE) 5 mg tablet Take 5 mg by mouth see administration instructions. For vertigo 12/15/19 23 Active amLODIPine-jamel coxib 2.5-200 mg Tablet Take 2.5 mg by mouth daily. 12/15/19 22 Active pantoprazole (PROTONIX) 40 mg Tablet, Delayed Release (E.C.) Take 40 mg by mouth daily. 01/02/20 23 Active levothyroxine 88 mcg tablet Take 88 mcg by mouth daily in the morning. Active lovastatin (MEVACOR) 10 mg tablet Take 10 mg by mouth daily with supper. Active lisinopriL (PRINIVIL) 20 mg tablet Take 20 mg by mouth daily. Active montelukast (SINGULAIR) 10 mg tablet Take 10 mg by mouth 1 time daily as needed for Other (See Comment) (sinus congestion). Active vitamin A-vitamin C-vitamin E (OCUVITE) Tablet Take 1 Tablet by mouth daily. Active multivitamins-m inerals-lutein (CENTRUM SILVER) Tablet Take 1 Tablet by mouth daily. Active POTASSIUM GLUCONATE ORAL Take 99 mg by mouth daily. Active calcium citrate-vitamin D3 (CITRACAL WITH VIT D) 200 mg-6.25 mcg (250 unit) Tablet Take 2 Tablets by mouth daily. Active acetaminophen (TYLENOL) 500 mg tablet Take 1,000 mg by mouth every 6 hours as needed for Pain. Active melatonin 1 mg Tablet Take 1.5 mg by mouth nightly as needed for Other (See Comment) (insomnia). Active aluminum - magnesium - simethicone (MYLANTA) 200-200-20 mg/5 mL Suspension Take 10 mL by mouth every 6 hours as needed for Dyspepsia. Active methenamine hippurate (HIPREX) 1 gram Tablet Take 1 Gram by mouth 2 times daily. Active ascorbic acid, vitamin C, (VITAMIN C) 1,000 mg Tablet Take 1,000 mg by mouth daily. Active d-mannose 500 mg Capsule Take 500 mg by mouth 3 times daily. Active doxycycline hyclate (VIBRAMYCIN) 100 mg capsule Take 100 mg by mouth 2 times daily. Active acyclovir (ZOVIRAX) 200 mg capsule Take 200 mg by mouth 5 times daily. Takes only with active outbreak Active dorzolamide-erica oloL (COSOPT) 22.3-6.8 mg/mL solution Administer 1 Drop in both eyes 2 times daily. Active meloxicam (MOBIC) 15 mg tablet Take 15 mg by mouth daily. Active magnesium oxide 250 mg magnesium Tablet Take 250 mg by mouth daily. Active ferrous sulfate 325 mg (65 mg iron) tablet Take 325 mg by mouth daily. Active Active Problems Problem Noted Date Diagnosed Date SDH (subdural hematoma) 01/01/2023 Closed fracture of orbital wall 01/01/2023 Fall 01/01/2023 Family History Medical History Relation Name Comments No Known Problems Daughter 2 Blindness Father Breast Cancer Mother Relation Name Status Comments Daughter 2 Alive Father Mother Social History Tobacco Use Types Packs/Day Years Used Date Smoking Tobacco: Never Alcohol Use Standard Drinks/Week Comments Never 0 (1 standard drink = 0.6 oz pur e alcohol) Comments Unknown Sex and Gender Information Value Date Recorded Sex Assigned at Not on file 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 Gender Identity Not on file Sexual Orientation Not on file Last Filed Vital Signs Vital Sign Reading Time Taken Comments Blood Pressure 132/74 08/08/2023 2:37 PM CDT Pulse 78 08/08/2023 2:37 PM CDT Temperature 37 C (98.6 F) 01/03/2023 11:20 AM CDT Respiratory Rate 16 01/03/2023 11:2 0 AM CDT Oxygen Saturation 95% 08/08/2023 2:37 PM CDT Inhaled Oxygen Concentration - - Weight 69.8 kg (153 lb 12.8 oz) 08/08/2023 2:37 PM CDT Height 165.1 cm (5' 5 ) 08/08/2023 2:37 PM CDT Body Mass Index 25.59 08/08/2023 2:37 PM CDT Plan of Treatment Health Maintenance Due Date Last Done Comments DTAP/TDAP/TD VACCINES (1 - Tdap) 02/09/1960 ZOSTER VACCINE (1 of 2) 1991 OSTEOPOROSIS SCREENING 2006 RSV VACCINE (60+ or ) (1 - 1-dose 75+ series) 02/09/2016 PNEUMOCOCCAL VACCINE 50+ YEA RS (2 of 2 - PCV20 or PCV21) 09/22/2016 09/23/2015 COVID-19 Vaccine (6 - 2023-2 5 season) 2023 02/16/2022, 10/27/2021, 02/05/2021, Additional history exists INFLUENZA VACCINE (#1) 2024 3, 01/31/2022, 10/26/2021, Additional history exists COLORECTAL SCREENING Discontinued 10/05/2011 Colorectal Cancer Screening Discontinued FIT-DNA Q 3 years Discontinued FIT/FOBT Q 1 year Discontinued Flex Sig/CT Colonography Q 5 years Discontinued Insurance MEDICARE PART A AND B [facility] Advance Directives For more information, please contact: [phone] * Full Code (Latest Code Status on File) Date Activated Date Inactivated Comments 01/01/2023 8:46 PM 01/03/2023 5:06 PM Care Teams Charge Entry Relationship Specialty Start Date End Date Thomas Howe MD [address] [place] [id number] PCP - General Family Practice 01/01/23
--- OUTSIDE RECORDS SUMMARY | 2024-11-17 09:25 | XMS_ITS | Clinical Summary ---
Author Organization [employer] [facility] Address [address] 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
--- OUTSIDE RECORDS SUMMARY | 2024-11-17 09:25 | XMS_ITS | Patient Health Record ---
Author Organization [facility] Address [address] [place] [address] Care Team Providers Care Yard Brakeman Name Role Phone Thomas Howe Primary Care Provider WAQAR Marinelli Unavailable [phone] Waqar Sandhu Unavailable [phone] Allergies Allergen (clinical drug ingredient) Drug/Non Drug Allergy documented on EMR Reaction Allergy Type Onset Date Status Aleve Unknown Drug Allergy Active sulfamethoxazole / trimethoprim Bactrim DS Unknown Drug Allergy Active nitrofurantoin, macrocrystals / nitrofurantoin, monohydrate Macrobid nausea and vomiting Drug Allergy Active codeine Codeine Unknown Drug Allergy Active naproxen Naproxen cardiac arrythmia Drug Allergy Active Results Component Value Reference Range Notes Urinalysis, Routine Reviewed date:12/20/2023 02:00:49 PM Interpretation: Performing Lab: Notes/Report: Urine-Color yellow Appearance clear Glucose - Bilirubin - Ketones - Specific [place] 1.010 Occult Blood - pH 6.0 Urine Protein - Urobilinogen,Semi-Qn - Nitrite, Urine - WBC Esterase - Urinalysis, Routine Reviewed date:05/08/2024 02:04:13 PM Interpretation: Performing Lab: Notes/Report: Urine-Color yellow Appearance clear Glucose - Bilirubin - Ketones - Specific [place] 1.015 Occult Blood - pH 6.0 Urine Protein - Urobilinogen,Semi-Qn - Nitrite, Urine - WBC Esterase 2+ Urinalysis, Routine Reviewed date:08/20/2024 02:04:13 PM Interpretation: Performing Lab: Notes/Report: Urine-Color yellow Appearance clear Glucose - Bilirubin - Ketones - Specific [place] 1.010 Occult Blood - pH 6.0 Urine Protein - Urobilinogen,Semi-Qn - Nitrite, Urine - WBC Esterase 3+ Reason For Referral No Information Medications Medication SIG (Take, Route, Frequency, Duration) Notes Start Date End Date Status Melatonin 3 MG 1 tablet at bedtime as needed Orally Once a day Active Vitamin B12 Active Vitamin D3 25 MCG (1000 UT) 1 capsule Orally Once a day Active Citracal + D Active Potassium 99 MG 1 tablet Orally Once a day Active Centrum Silver - as directed Orally Active Magnesium 250 MG 1 tablet with a meal Orally Once a day Active Ocuvite Active Losartan Potassium 25 MG 1 tablet Orally Once a day Active Montelukast Sodium 10 MG 1 tablet Orally Once a day Active Doxycycline Hyclate 100 MG 1 capsule Orally Once a day prn s/s UTI Active Meloxicam 15 MG 1 tablet Orally Once a day Active Dorzolamide HCl 2 % 1 drop into affected eye Ophthalmic Three times a day Active Pantoprazole Sodium 40 MG 1 tablet Orally Once a day Active Lovastatin 10 MG 1 tablet with the evening meal Orally Once a day Active Levothyroxine Sodium 88 MCG 1 tablet in the morning on an empty stomach Orally Once a day Active Prolia 60 MG/ML as directed Subcutaneous Not-Taking Cipro 500 MG 1 tablet Orally every 12 hrs for 3 days 12/20/2023 Not-Taking amLODIPine Besylate 5 MG 1 tablet Orally Once a day Not-Taking Lisinopril 20 MG 1 tablet Orally Once a day Not-Taking Iron 325 (65 Fe) MG 1 tablet Orally Three times a Week Not-Taking predniSONE 5 MG 1 tablet Orally Once a day Not-Taking Social History Tobacco Use: Social History Observation Description Date Details (start date - stop date) Never Smoker NA - NA Tobacco Control (Standard) Question Answer Notes Tobacco use: Nonsmoker AUDIT-C (Standard) Question Answer Notes Did you have a drink containing alcohol in the p ast year? 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) Active confirmed Problem Urethral stricture unspecified (N35.919) Active confirmed Problem Chronic cystitis (97026535) Chronic cystitis (N30.20) Active confirmed Vital Signs Heart Rate 73 /min 08/20/2024 Height-cm 165.1 cm 08/20/2024 Blood pressure diastolic 78 mm Hg 08/20/2024 Weight-kg 65.32 kg 08/20/2024 Height 65 in 08/20/2024 Blood pressure systolic 192 mm Hg 08/20/2024 Weight 144 lbs 08/20/2024 BMI 23.96 kg/m2 08/20/2024 Procedures Procedure Date Ordered Date Performed Result Body Sit e Bladder Scan 05/08/2024 05/08/2024 PVR 152ml Bladder Scan 08/20/2024 08/20/2024 N/A Encounters Encounter Location Date Provider Diagnosis [facility] [address] [place] [address] 12/20/2023 WAQAR SHARP Chronic cystitis N30 .20 ; Postinfective urethral stricture, not elsewhere classified, female N35.12 and Feeling of incomplete bladder emptying R39.[address] [facility] [address] [place] [address] 05/08/2024 WAQAR SHARP Postinfective urethr al stricture, not elsewhere classified, female N35.12 ; Chronic cystitis N30.20 and Feeling of incomplete bladder emptying R39.[address] [facility] [address] [place] [address] 08/20/2024 Waqar Edson Postinfective urethr al stricture, not elsewhere classified, female N35.12 ; Chronic cystitis N30.20 and Feeling of incomplete bladder emptying R39.14 Assessments Encounter Date Diagnosis (ICD Code) Assessment Notes Treatment Notes Treatment Clinical Notes Section Notes 05/08/2024 Postinfective urethral stricture, not elsewhere classified, female (ICD-10 - N35.12) Stable symptoms at this time. UA clear. PVR 151ml. She will return in 3-4m with UA, PVR. She reasonably defers repeat urethral dilation given good control of symptoms currently. Return sooner with any concerns. 08/20/2024 Postinfective urethral stricture, not elsewhere classified, female (ICD-10 - N35.12) Stable symptoms at this time. UA without concern of infection. PVR elevated. She is deferring further workup at right. We are in agreement of scheduling for in office cysto and possible dilation with Dr. Sharp. If she is still doing well at that time or defers, she will cancel. She will need UA/PVR at that time. She reasonably defers repeat urethral dilation given good control of symptoms currently. For now, and through shared decision making we are in agreement with no further workup or intervention at this time with care plan, aside from what was mentioned. Patient has no other voiced concerns or questions. Patient satisfied with plan. 05/08/2024 Chronic cystitis (ICD-10 - N30.20) Stable symptom s at this time. UA clear. PVR 151ml. She will return in 3-4m with UA, PVR. She reasonably defers repeat urethral dilation given good control of symptoms currently. Return sooner with any concerns. 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 I have recommended repeat dilation in 4 months as this is likely causing her incomplete emptying and chronic cystitis. 12/20/2023 Chronic cystitis (ICD-10 - N30.20) She had fairly severe urethral stricture disease that was dilated from [address] [place] [address] the way up to 24 [place] with findings on cystoscopy consistent with outlet obstruction but no significant trigonitis. I have recommended repeat dilation in 4 months as this is likely causing her incomplete emptying and chronic cystitis. 08/20/2024 Chronic cystitis (ICD-10 - N30.20) Stable symptom s at this time. UA without concern of infection. PVR elevated. She is deferring further workup at right. We are in agreement of scheduling for in office cysto and possible dilation with Dr. Sharp. If she is still doing well at that time or defers, she will cancel. She will need UA/PVR at that time. She reasonably defers repeat urethral dilation given good control of symptoms currently. For now, and through shared decision making we are in agreement with no further workup or intervention at this time with care plan, aside from what was mentioned. Patient has no other voiced concerns or questions. Patient satisfied with plan. 12/20/2023 Feeling of incomplete bladder emptying (ICD-10 - R39.14) She had fairly severe urethral stricture disease that was dilated from [address] [place] [address] the way up to 24 [place] with findings on cystoscopy consistent with outlet obstruction but no significant trigonitis. I have recommended repeat dilation in 4 months as this is likely causing her incomplete emptying and chronic cystitis. 05/08/2024 Feeling of incomplete bladder emptying (ICD-10 - R39.14) Stable symptom s at this time. UA clear. PVR 151ml. She will return in 3-4m with UA, PVR. She reasonably defers repeat urethral dilation given good control of symptoms currently. Return sooner with any concerns. 08/20/2024 Feeling of incomplete bladder emptying (ICD-10 - R39.14) Stable symptom s at this time. UA without concern of infection. PVR elevated. She is deferring further workup at right. We are in agreement of scheduling for in office cysto and possible dilation with Dr. Sharp. If she is still doing well at that time or defers, she will cancel. She will need UA/PVR at that time. She reasonably defers repeat urethral dilation given good control of symptoms currently. For now, and through shared decision making we are in agreement with no further workup or intervention at this time with care plan, aside from what was mentioned. Patient has no other voiced concerns or questions. Patient satisfied with plan. Plan Of Treatment Pending Test Test Name Order Date Bladder Scan 09/14/2023 Bladder Scan 07/05/2023 Next Appt Details Provider Name:WAQAR Murray, 01/21/2025 02:00:00 PM, [address] [place], [address], Insurance Providers Payer Name Payer Address Payer Phone Subscriber Number Group Number Insured Name Patient Relationship to Insured Coverage Start Date Coverage End Date [place] [address] [facility] [id number] Dionna Hernandez Self - patient is the insured [employer] [address] [place] [address] [id number] Dionna Hernandez Self - patient is the insured Medical (General) History Medical History History ICD Code Chronic Cystitis Thyroid Disease Hypercholesterolemia GERD Arthritis Hypertension Anemia Surgical History Surgery Date(Month/Year) Hysterectomy 1988 Small bowel resection 1991 Small bowel resection 1992 Hospitalization History Reason Date(Month/Year) see prior sx hx brain bleed
--- OUTSIDE RECORDS SUMMARY | 2024-11-17 09:25 | XMS_ITS ---
Author Organization Unknown Immunizations Date Vaccine DateAdministered TimeAdministered VaccineCode Dose Strength Unit Beauty Culturist DueDate CptCode CvxCode ManufacturerCode LocationCode AdministeredBy [id number] 12:00 :00 AM influenz a, trivalen t, adjuvant ed 02/13/2024 12:00:00 AM 0000 0.500 000 mL mL 168
--- OUTSIDE RECORDS SUMMARY | 2024-11-17 09:25 | XMS_ITS | Encounter Summary ---
Author Organization [facility] Address [address] [place] [address] Care Team Providers Care Teaseler Name Role Phone Unavailable Primary Care Provider Unavailabl e Encounter Details Date Type Department Care Team (Latest Contact Info) Description 08/31/2001 Outpatient Historical 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
--- OUTSIDE RECORDS SUMMARY | 2024-11-17 09:26 | XMS_ITS | Data Portability ---
Author Organization [facility] Address [address] [place] [id number] Care Team Providers Care Loan Review Officer Name Role Phone BRYAN HOWE Primary Care Provider [phone] Assessment No assessment recorded. Plan of Treatment Reminders Order Date Submit Date Provider Last Modified By Organization Details Last Modified Time Details Appointments RECHECK 15 2024 10:30A Rosa Howe MD Not available Not available Not available Lab CMP, serum or plasma 2024 025 [facility], [address], [address], [place], [address], 08/23/2024 12:47:11 CBC 2024 025 [facility], [address], [address], [place], [address], 08/23/2024 12:05:04 TSH, serum or plasma 2024 025 [facility], [address], [address], [place], [address], 09/11/2024 11:11:44 urinalys is, complete 2023 024 [facility], [address], [address], [place], [address], 04/23/2024 12:17:51 CMP, serum or plasma 2023 024 [facility], [address], [facility], [place], [address], 04/23/2024 12:17:54 CBC 2023 024 [facility], [address], [place] [address], [address], 04/23/2024 11:59:12 pro BNP (pro B-type natriure tic peptide) , serum or plasma 2023 024 [facility], [address] [place] [address], [facility] [address] [facility], [place], [address], 04/25/2024 12:46:43 urinalys is, dipstick 2023 024 [facility] ([facility]), [address] [place] [address], [address], 03/26/2024 11:35:37 culture, urine 2023 024 [facility], [address] [place] [address], [facility] [address] , [place], [address], 03/28/2024 22:44:22 urinalys is, complete 2023 024 [facility] ([facility]), [address] [place] [address], [address], 02/13/2024 15:43:57 culture, urine 2023 024 [facility], [address] [place] [address], [facility] [address], [place], [address], 02/15/2024 03:13:09 urinalys is, dipstick 2023 024 [facility] ([facility]), [address] [place] [address], [address], 01/24/2024 10:39:07 culture, urine 2023 [facility], [address] [facility] [address] [place], [address], 01/25/2024 22:25:15 Referral None recorded . Procedures None recorded . Surgeries None recorded . Imaging None recorded . Medication Orders Cipro 250 mg tablet [email or web address] [facility]/Pharmacy #[id number], [address] [facility], [facility], [place], [address], 04/23/2024 11:09:24 meloxica m 7.5 mg tablet 2023 [facility]/Pharmacy #[id number], [address] [facility], [address], [address], 02/13/2024 15:09:27 Patient TargetsNo targets recorded. Patient InstructionsNo instructions recorded. Reason for Referral None Reported. Results Created Date Observation Date Name Description Value Unit Range Abnormal Flag Note LastModifiedBy Organization Detail LastModifiedTime 01/24/2001/25/2024 CULTU RE, URINE , ROUTI NE culture, urine, routine SEE NOTE CULTU RE, URINE , ROUTI NE Micro Numbe r: [id number] Test Statu s: Final Speci men Sourc e: Urine , clean catch Speci men Quali ty: Adequ ate Resul t: Less than 10,00 0 CFU/m L of singl e Gram posit issac organ ism isola long. No furth er testi ng will be perfo rmed. If clini allen indic ated, recol lecti on using a metho d to minim ize conta minat ion, with promp t trans nader to Urine Cultu re Trans port Tube, is recom malgorzata d. Not Available [employer] [facility] [address], [place], [address], 01/25/2024 22:25:15 01/24/2001/24/2024 urina lysis , dipst ick Leukocytes Small Not Available [facility] ([facility]) [address] [place], [address], 01/24/2024 09:47:57 01/24/2001/24/2024 urina lysis , dipst ick Nitrite negati ve Not Available [facility] ([facility]) [address] [place], [address], 01/24/2024 09:47:57 01/24/2001/24/2024 urina lysis , dipst ick Urobilinogen .2 Not Available [facility] ([facility]) [address] [place], [address], 01/24/2024 09:47:57 01/24/2001/24/2024 urina lysis , dipst ick Protein Negati ve Not Available [facility] ([facility]) [address] [place], [address], 01/24/2024 09:47:57 01/24/2001/24/2024 urina lysis , dipst ick pH 6.0 Not Available [facility] ([facility]) [address] [place], [address], 01/24/2024 09:47:57 01/24/2001/24/2024 urina lysis , dipst ick Blood Non-He molyze d: Modera te Not Available [facility] ([facility]) [address] [place], [address], 01/24/2024 09:47:57 01/24/2001/24/2024 urina lysis , dipst ick Specific [place] 1.010 Not Available [facility] ( [facility]) [address] [place], [address], 01/24/2024 09:47:57 01/24/2001/24/2024 urina lysis , dipst ick Ketone Negati ve Not Available [facility] ([facility]) [address] [place], [address], 01/24/2024 09:47:57 01/24/2001/24/2024 urina lysis , dipst ick Bilirubin Negati ve Not Available [facility] ([facility]) [address] [place], [address], 01/24/2024 09:47:57 01/24/2001/24/2024 urina lysis , dipst ick Glucose Negati ve Not Available [facility] ([facility]) [address] [place], [address], 01/24/2024 09:47:57 01/24/2001/24/2024 urina lysis , dipst ick Appearance Clear Not Available [facility] ([facility]) [address] [place], [address], 01/24/2024 09:47:57 01/24/2001/24/2024 urina lysis , dipst ick Color Pale Yellow Not Available [facility] ([facility]) [address] [place], [address], 01/24/2024 09:47:57 02/13/2002/15/2024 CULTU RE, URINE , ROUTI NE culture, urine, routine SEE NOTE CULTU RE, URINE , ROUTI NE Micro Numbe r: [id number] Test Statu s: Final Speci men Sourc e: Urine Speci men Quali ty: Adequ ate Resul t: No Growt h Not Available [facility] [address] , [place], [address], 02/15/2024 03:13:09 02/13/2002/13/2024 urina lysis , compl ete color yellow normal Not Available [facility] ([facility]) [address] [place], [address], 02/13/2024 15:07:20 02/13/20 24 02/13/2024 urina lysis , compl ete clarity clear clear normal Not Available [facility] ([facility]) [address] [place], [address], 02/13/2024 15:07:20 02/13/20 24 02/13/2024 urina lysis , compl ete glucose negati ve negati ve normal Not Available [facility] ([facility]) [address] [place], [address], 02/13/2024 15:07:20 02/13/2002/13/2024 urina lysis , compl ete bilirubin negati ve negati ve normal Not Available [facility] ([facility]) [address] [place], [address], 02/13/2024 15:07:20 02/13/2002/13/2024 urina lysis , compl ete ketones negati ve negati ve normal Not Available [facility] ([facility]) [address] [place], [address], 02/13/2024 15:07:20 02/13/2002/13/2024 urina lysis , compl ete specific gravity 1.015 1.005- 1.025 normal Not Available [facility] ([facility]) [address] [place], [address], 02/13/2024 15:07:20 02/13/20 24 02/13/2024 urina lysis , compl ete pH 7.0 5.0-7. 0 normal Not Available [facility] ([facility]) [address] [place], [address], 02/13/2024 15:07:20 02/13/20 24 02/13/2024 urina lysis , compl ete protein negati ve normal Not Available [facility] ([facility]) [address] [place], [address], 02/13/2024 15:07:20 02/13/20 24 02/13/2024 urina lysis , compl ete uro 0.2 normal Not Available [facility] ([facility]) [address] [place], [address], 02/13/2024 15:07:20 02/13/2002/13/2024 urina lysis , compl ete nitrate negati ve negati ve normal Not Available [facility] ([facility]) [address] [place], [address], 02/13/2024 15:07:20 02/13/20 24 02/13/2024 urina lysis , compl ete blood negati ve negati ve normal Not Available [facility] ([facility]) [address] [place], [address], 02/13/2024 15:07:20 02/13/20 24 02/13/2024 urina lysis , compl ete leukocytes 1+ negati ve abnormal Not Available [facility] ([facility]) [address] [place], [address], 02/13/2024 15:07:20 02/13/20 24 02/13/2024 urina lysis , compl ete WBC 8-10 0 abnormal Not Available [facility] ([facility]) [address] [place], [address], 02/13/2024 15:07:20 02/13/20 24 02/13/2024 urina lysis , compl ete RBC 1-2 0 abnormal Not Available [facility] ([facility]) [address] [place], [address], 02/13/2024 15:07:20 02/13/20 24 02/13/2024 urina lysis , compl ete epi cells 1-3 0 abnormal Not Available [facility] ( [facility]) [address] [place], [address], 02/13/2024 15:07:20 02/13/20 24 02/13/2024 urina lysis , compl ete bacteria trace of mixed nichole abnormal Not Available [facility] ([facility]) [address] [place], [address], 02/13/2024 15:07:20 02/13/20 24 02/13/2024 urina lysis , compl ete other negati ve normal Not Available [facility] ([facility]) [address] [place], [address], 02/13/2024 15:07:20 03/26/20 24 03/28/2024 CULTU RE, URINE , ROUTI NE culture, urine, routine SEE NOTE abnormal CULTU RE, URINE , ROUTI NE Micro Numbe r: [id number] Test Statu s: Final Speci men Sourc e: Urine Speci men Quali ty: Adequ ate Resul t: Great er than 100,0 00 CFU/m L of Citro bacte r speci es Citro bacte r sp. ----- ----- ----- - INT TRUONG AMOX/ CLAVU LANAT E I 16 CEFAZ DEMETRIUS R >=64 1 CEFEP CORTES S <=0.1 2 CEFTA ZIDIM E S <=1 CEFTR IAXON E R 32 CIPRO FLOXA LEIGH S <=0.0 6 GENTA MICIN S <=1 IMIPE NEM S <=0.2 5 LEVOF LOXAC IN S <=0.1 2 MEROP ENEM S <=0.2 5 NITRO FURAN TOIN I 64 PIP/T AZOBA CTAM S <=4 TRIME THOPR IM/YOON LFA S <=20 S = Susce ptibl e I = Inter media te R = Resis tant NS = Not susce ptibl e SDD = Susce ptibl e Dose Depen dent * = Not Teste d NR = Not Repor long NN = See Thera py Comme nts THERA PY COMME NTS Note 1: For uncom plica long UTI cause d by E. coli, K. pneum oniae or P. mirab ilis: Cefaz demetrius is susce ptibl e if TRUONG <3 2 mcg/m L and predi cts susce ptibl e to the oral agent s cefac mendez, cefdi phillip, cefpo doxim e, cefpr ozil, cefur oxime , cepha lexin and lorac arbef . Not Available [facility] [address] [place], [address], 03/28/2024 22:44:22 03/26/20 24 03/26/2024 urina lysis , dipst ick Leukocytes Small Not Available [facility] ( [facility]) [address] [place], [address], 03/26/2024 11:10:47 03/26/20 24 03/26/2024 urina lysis , dipst ick Nitrite negati ve Not Available [facility] ([facility]) [address] [place], [address], 03/26/2024 11:10:47 03/26/20 24 03/26/2024 urina lysis , dipst ick Urobilinogen .2 Not Available [facility] ([facility]) [address] [place], [address], 03/26/2024 11:10:47 03/26/20 24 03/26/2024 urina lysis , dipst ick Protein Negati ve Not Available [facility] ([facility]) [address] [place], [address], 03/26/2024 11:10:47 03/26/20 24 03/26/2024 urina lysis , dipst ick pH 6.5 Not Available [facility] ([facility]) [address] [place], [address], 03/26/2024 11:10:47 03/26/20 24 03/26/2024 urina lysis , dipst ick Blood Non-He molyze d: Trace Not Available [facility] ([facility]) [address] [place], [address], 03/26/2024 11:10:47 03/26/2003/26/2024 urina lysis , dipst ick Specific [place] 1.015 Not Available [facility] ( [facility]) [address] [place], [address], 03/26/2024 11:10:47 03/26/20 24 03/26/2024 urina lysis , dipst ick Ketone Negati ve Not Available [facility] ([facility]) [address] [place], [address], 03/26/2024 11:10:47 03/26/20 24 03/26/2024 urina lysis , dipst ick Bilirubin Negati ve Not Available [facility] ([facility]) [address] [place], [address], 03/26/2024 11:10:47 03/26/20 24 03/26/2024 urina lysis , dipst ick Glucose Negati ve Not Available [facility] ([facility]) [address] [place], [address], 03/26/2024 11:10:47 03/26/20 24 03/26/2024 urina lysis , dipst ick Appearance Clear Not Available [facility] ([facility]) [address] [place], [address], 03/26/2024 11:10:47 03/26/20 24 03/26/2024 urina lysis , dipst ick Color Dark Yellow Not Available [facility] ([facility]) [address] [facility], [place], [address], 03/26/2024 11:10:47 04/23/20 24 04/23/2024 CBC WBC 5.4 x10 4.0-10 .5 Not Available [facility] [address] [facility] [address] [facility] 1, [place], [address], 04/23/2024 11:59:12 04/23/20 24 04/23/2024 CBC RBC 3.91 x10 3.50-5 .50 Not Available [facility] [address] [facility] [address] [facility] 1, [place], [address], 04/23/2024 11:59:12 04/23/20 24 04/23/2024 CBC HGB 12.7 g/dL 12.0-1 6.0 Not Available [facility] [address] [facility] [address] [facility] 1, [place], [address], 04/23/2024 11:59:12 04/23/20 24 04/23/2024 CBC HCT 36.5 % 37.0-4 7.0 low Not Available [facility] [address] [facility] [address] [facility] 1, [place], [address], 04/23/2024 11:59:12 04/23/20 24 04/23/2024 CBC MCV 93.4 fL 80.0-9 9.9 Not Available [facility] [address] [facility] [address] [facility] 1, [place], [address], 04/23/2024 11:59:12 04/23/20 24 04/23/2024 CBC MCH 32.6 pg 27.0-3 2.0 high Not Available [facility] [address] [facility] 1, [place], [address], 04/23/2024 11:59:12 04/23/20 24 04/23/2024 CBC MCHC 34.9 g/dL 32.0-3 6.0 Not Available [facility] [address] [facility] 1, [place], [address], 04/23/2024 11:59:12 04/23/20 24 04/23/2024 CBC RDW 13.4 % 11.5-1 4.5 Not Available [facility] [address] [facility] 1, [place], [address], 04/23/2024 11:59:12 04/23/2004/23/2024 CBC plt 243.4 x10 140.0- 451.0 Not Available [facility] [address] [facility], [place], [address], 04/23/2024 11:59:12 04/23/20 24 04/23/2024 CBC lymphocytes % 26.2 % 20.0-5 0.0 Not Available [facility] [address] [facility] 1, [place], [address], 04/23/2024 11:59:12 04/23/20 24 04/23/2024 CBC granulcytes % 61.3 % 30.0-7 0.0 Not Available [facility] [address] [facility] 1, [place], [address], 04/23/2024 11:59:12 04/23/20 24 04/23/2024 CBC monocytes % 9.2 % 2.0-16 .0 Not Available [facility] [address] [facility] 1, [place], [address], 04/23/2024 11:59:12 04/23/20 24 04/23/2024 CBC granulcytes# 3.3 x10 Not Nury ilable [facility] [address] [facility] [address] [facility] 1, [place], [address], 04/23/2024 11:59:12 04/23/20 24 04/23/2024 CBC lymphocytes # 1.4 x10 Not Available [facility] [address] [facility] 1, [place], [address], 04/23/2024 11:59:12 04/23/20 24 04/23/2024 CBC monocytes # 0.5 x10 Not Avai lable [facility] [address] [facility] 1, [place], [address], 04/23/2024 11:59:12 04/23/20 24 04/23/2024 URINA LYSIS WITH MICRO color YELLOW Not Available [facility] [address] [facility] 1, [place], [address], 04/23/2024 12:17:51 04/23/20 24 04/23/2024 URINA LYSIS WITH MICRO clarity CLEAR Not Available [facility] [address] [facility] 1, [place], [address], 04/23/2024 12:17:51 04/23/20 24 04/23/2024 URINA LYSIS WITH MICRO glu NEGATI VE Not Available [facility] [address] [facility] 1, [place], [address], 04/23/2024 12:17:51 04/23/20 24 04/23/2024 URINA LYSIS WITH MICRO bili NEGATI VE Not Available [facility] [address] [facility] 1, [place], [address], 04/23/2024 12:17:51 04/23/20 24 04/23/2024 URINA LYSIS WITH MICRO ket NEGATI VE Not Available [facility] [address] [facility], [place], [address], 04/23/2024 12:17:51 04/23/20 24 04/23/2024 URINA LYSIS WITH MICRO S.g 1.015 1.005- 1.025 Not Available [facility] [address] [facility] 1, [place], [address], 04/23/2024 12:17:51 04/23/20 24 04/23/2024 URINA LYSIS WITH MICRO pH 6.5 5.0-7. 0 Not Available [facility] [address] [facility] 1, [place], [address], 04/23/2024 12:17:51 04/23/20 24 04/23/2024 URINA LYSIS WITH MICRO pro NEGATI VE Not Available [facility] [address] [facility], [place], [address], 04/23/2024 12:17:51 04/23/20 24 04/23/2024 URINA LYSIS WITH MICRO uro 0.2 E.U./D L Not Available [facility] [address] [facility] 1, [place], [address], 04/23/2024 12:17:51 04/23/20 24 04/23/2024 URINA LYSIS WITH MICRO nit NEGATI VE Not Available [facility] [address] [facility] 1, [place], [address], 04/23/2024 12:17:51 04/23/20 24 04/23/2024 URINA LYSIS WITH MICRO blo TRACE- INTACT abnormal Not Available [facility] [address] [facility] 1, [place], [address], 04/23/2024 12:17:51 04/23/20 24 04/23/2024 URINA LYSIS WITH MICRO chacho TRACE abnormal Not Available [facility] [address], [place], [address], 04/23/2024 12:17:51 04/23/20 24 04/23/2024 URINA LYSIS WITH MICRO WBC 4-5 abnormal Not Available [facility] [address], [place], [address], 04/23/2024 12:17:51 04/23/20 24 04/23/2024 URINA LYSIS WITH MICRO RBC 1-2 Not Available [facility] [address], [place], [address], 04/23/2024 12:17:51 04/23/20 24 04/23/2024 URINA LYSIS WITH MICRO epi cells 4-5 abnormal Not Available [facility] [address], [place], [address], 04/23/2024 12:17:51 04/23/20 24 04/23/2024 URINA LYSIS WITH MICRO bacteria NEGATI VE Not Available [facility] [address], [place], [address], 04/23/2024 12:17:51 04/23/20 24 04/23/2024 URINA LYSIS WITH MICRO other NG Not Available [facility] [address], [place], [address], 04/23/2024 12:17:51 04/23/20 24 04/23/2024 CMP (FEMA LE) glucose 103.0 mg/dL 60.0-9 9.0 high Not Available [facility] [address], [place], [address], 04/23/2024 12:17:54 04/23/20 24 04/23/2024 CMP (FEMA LE) BUN (blood urea nitrogen) 21.0 mg/dL 10.0-2 6.0 Not Available [facility] [address] [facility], [place], [address], 04/23/2024 12:17:54 04/23/20 24 04/23/2024 CMP (FEMA LE) creatinine (serum) 0.8 mg/dL 0.4-1. 5 Not Available [facility] [address] [facility], [place], [address], 04/23/2024 12:17:54 04/23/20 24 04/23/2024 CMP (FEMA LE) BUN/creatini ne ratio 26.25 ratio Not Available [facility] [address] [facility], [place], [address], 04/23/2024 12:17:54 04/23/20 24 04/23/2024 CMP (FEMA LE) eGFR calculated 72.8 Not Available [facility] [address] [facility], [place], [address], 04/23/2024 12:17:54 04/23/20 24 04/23/2024 CMP (FEMA LE) total protein 8.5 g/dL 6.0-8. 5 Not Available [facility] [address] [facility], [place], [address], 04/23/2024 12:17:54 04/23/20 24 04/23/2024 CMP (FEMA LE) total bilirubin 0.7 mg/dL 0.2-1. 3 Not Available [facility] [address] [facility], [place], [address], 04/23/2024 12:17:54 04/23/20 24 04/23/2024 CMP (FEMA LE) albumin 5.2 g/dL 3.5-5. 5 Not Available [facility] [address] [facility], [place], [address], 04/23/2024 12:17:54 04/23/20 24 04/23/2024 CMP (FEMA LE) globulin 3.3 calc Not Available [facility] [address] [facility], [place], [address], 04/23/2024 12:17:54 04/23/20 24 04/23/2024 CMP (FEMA LE) AST (SGOT) 30.0 U/L 0.0-46 .0 Not Available [facility] [address] [facility] 1, [place], [address], 04/23/2024 12:17:54 04/23/20 24 04/23/2024 CMP (FEMA LE) altv (SGPT) 23.0 U/L 13.0-6 9.0 normal Not Available [facility] [address] [facility] 1, [place], [address], 04/23/2024 12:17:54 04/23/20 24 04/23/2024 CMP (FEMA LE) A/G ratio 1.6 ratio Not Available [facility] [address] [facility] 1, [place], [address], 04/23/2024 12:17:54 04/23/20 24 04/23/2024 CMP (FEMA LE) ALP phos 66.0 U/L 30.0-1 40.0 normal Not Available [facility] [address] [facility] 1, [place], [address], 04/23/2024 12:17:54 04/23/20 24 04/23/2024 CMP (FEMA LE) calcium 10.2 mg/dL 8.4-10 .5 Not Available [facility] [address] [facility] 1, [place], [address], 04/23/2024 12:17:54 04/23/20 24 04/23/2024 CMP (FEMA LE) sodium 138.0 mmol/ L 136.0- 145.0 Not Available [facility] [address] [facility], [place], [address], 04/23/2024 12:17:54 04/23/20 24 04/23/2024 CMP (FEMA LE) potassium 4.0 mmol/ L 3.5-5. 1 Not Available [facility] [address] [facility], [place], [address], 04/23/2024 12:17:54 04/23/2004/23/2024 CMP (FEMA LE) chloride 101.0 mmol/ L 98.0-1 10.0 normal Not Available [facility] [address] [facility], [place], [address], 04/23/2024 12:17:54 04/23/20 24 04/23/2024 CMP (FEMA LE) C02 28.0 mmol/ L 22.0-3 1.0 Not Available [facility] [address] [facility] [place] [facility], [place], [address], 04/23/2024 12:17:54 04/23/20 24 04/23/2024 CMP (FEMA LE) anion gap 9.0 calc Not Available [facility] [address] [facility] [place] [facility], [place], [address], 04/23/2024 12:17:54 04/23/20 24 04/23/2024 CMP (FEMA LE) osmolality 288.2 calc Not Available [facility] [address] [place] [address] [facility] [address], [place], [address], 04/23/2024 12:17:54 04/23/20 24 04/25/2024 B TYPE NATRI URETI C PEPTI DE (BNP) B type natriuretic peptide (BNP) 100 pg/mL <100 high BNP level s incre ase with age in the gener al popul ation with the highe st value s seen in indiv idual s great er than 75 years of age. Refer ence: J. Am. Paresh. Cardi ol. 2002; 40:97 6-982 . Not Available [facility] [address] [place], [address], 04/25/2024 12:46:43 08/24/19 25 08/23/2024 CBC WBC 6.7 x10 4.0-10 .5 Not Available [facility] [address], [place], [address], 08/23/2024 12:05:04 08/24/1908/23/2024 CBC RBC 3.85 x10 3.50-5 .50 Not Available [facility] [address] [facility] [address], [place], [address], 08/23/2024 12:05:04 08/24/19 25 08/23/2024 CBC HGB 12.2 g/dL 12.0-1 6.0 Not Available [facility] [address] [facility] [address], [place], [address], 08/23/2024 12:05:04 08/24/19 25 08/23/2024 CBC HCT 37.6 % 37.0-4 7.0 Not Available [facility] [address] [facility], [place], [address], 08/23/2024 12:05:04 08/24/19 25 08/23/2024 CBC MCV 97.7 fL 80.0-9 9.9 Not Available [facility] [address] [facility] Don[facility] 1, [place], [address], 08/23/2024 12:05:04 08/24/19 25 08/23/2024 CBC MCH 31.8 pg 27.0-3 2.0 Not Available [facility] [address] [facility], [place], [address], 08/23/2024 12:05:04 08/24/19 25 08/23/2024 CBC MCHC 32.6 g/dL 32.0-3 6.0 Not Available [facility] [address] [facility], [place], [address], 08/23/2024 12:05:04 08/24/19 25 08/23/2024 CBC RDW 13.1 % 11.5-1 4.5 Not Available [facility] [address] [facility] 1, [place], [address], 08/23/2024 12:05:04 08/24/19 25 08/23/2024 CBC plt 300.4 x10 140.0- 451.0 Not Available [facility] [address] [address], [place], [address], 08/23/2024 12:05:04 08/24/19 25 08/23/2024 CBC lymphocytes % 21.6 % 20.0-5 0.0 Not Available [facility] [address] [facility] 1, [place], [address], 08/23/2024 12:05:04 08/24/19 25 08/23/2024 CBC granulcytes % 66.2 % 30.0-7 0.0 Not Available [facility] [address] [address], [place], [address], 08/23/2024 12:05:04 08/24/19 25 08/23/2024 CBC monocytes % 9.3 % 2.0-16 .0 Not Available [facility] [address] [address], [place], [address], 08/23/2024 12:05:04 08/24/19 25 08/23/2024 CBC granulcytes# 4.5 x10 Not [facility] [address] [facility], [place], [address], 08/23/2024 12:05:04 08/24/19 25 08/23/2024 CBC lymphocytes # 1.5 x10 Not Available [facility] [address] [facility] 1, [place], [address], 08/23/2024 12:05:04 08/24/19 25 08/23/2024 CBC monocytes # 0.6 x10 Not Avai lable [facility] [address] [facility] 1, [place], [address], 08/23/2024 12:05:04 08/24/19 25 08/23/2024 TSH TSH 0.64 uIU/m L 0.49-3 .82 Not Available [facility] [address] [facility] 1, [place], [address], 08/23/2024 12:46:58 08/24/19 25 08/23/2024 CMP (FEMA LE) glucose 92.0 mg/dL 60.0-9 9.0 Not Available [facility] [address] [facility] 1, [place], [address], 08/23/2024 12:47:11 08/24/19 25 08/23/2024 CMP (FEMA LE) BUN (blood urea nitrogen) 18.0 mg/dL 10.0-2 6.0 Not Available [facility] [address] [facility] 1, [place], [address], 08/23/2024 12:47:11 08/24/19 25 08/23/2024 CMP (FEMA LE) creatinine (serum) 0.9 mg/dL 0.4-1. 5 Not Available [facility] [address] [facility] 1, [place], [address], 08/23/2024 12:47:11 08/24/19 25 08/23/2024 CMP (FEMA LE) BUN/creatini ne ratio 20.00 ratio Not Available [facility] [address] [facility] 1, [place], [address], 08/23/2024 12:47:11 08/24/19 25 08/23/2024 CMP (FEMA LE) eGFR calculated 63.6 Not Available [facility] [address] [facility] 1, [place], [address], 08/23/2024 12:47:11 08/24/19 25 08/23/2024 CMP (FEMA LE) total protein 8.0 g/dL 6.0-8. 5 Not Available [facility] [address] [address], [place], [address], 08/23/2024 12:47:11 08/24/19 25 08/23/2024 CMP (FEMA LE) total bilirubin 0.6 mg/dL 0.2-1. 3 Not Available [facility] [address] [facility] 1, [place], [address], 08/23/2024 12:47:11 08/24/19 25 08/23/2024 CMP (FEMA LE) albumin 4.6 g/dL 3.5-5. 5 Not Available [facility] [address] [facility] 1, [place], [address], 08/23/2024 12:47:11 08/24/19 25 08/23/2024 CMP (FEMA LE) globulin 3.4 calc Not Available [facility] [address] [facility] 1, [place], [address], 08/23/2024 12:47:11 08/24/19 25 08/23/2024 CMP (FEMA LE) AST (SGOT) 31.0 U/L 0.0-46 .0 Not Available [facility] [address] [facility] 1, [place], [address], 08/23/2024 12:47:11 08/24/19 25 08/23/2024 CMP (FEMA LE) altv (SGPT) 20.0 U/L 13.0-6 9.0 normal Not Available [facility] [address] [facility], [place], [address], 08/23/2024 12:47:11 08/24/19 25 08/23/2024 CMP (FEMA LE) A/G ratio 1.4 ratio Not Available [facility] [address] [facility] 1, [place], [address], 08/23/2024 12:47:11 08/24/19 25 08/23/2024 CMP (FEMA LE) ALP phos 62.0 U/L 30.0-1 40.0 normal Not Available [facility] [address] [facility], [place], [address], 08/23/2024 12:47:11 08/24/19 25 08/23/2024 CMP (FEMA LE) calcium 10.2 mg/dL 8.4-10 .5 Not Available [facility] [address] [facility] 1, [place], [address], 08/23/2024 12:47:11 08/24/19 25 08/23/2024 CMP (FEMA LE) sodium 139.0 mmol/ L 136.0- 145.0 Not Available [facility] [address] [facility], [place], [address], 08/23/2024 12:47:11 08/24/19 25 08/23/2024 CMP (FEMA LE) potassium 4.3 mmol/ L 3.5-5. 1 Not Available [facility] [address] [facility], [place], [address], 08/23/2024 12:47:11 08/24/19 25 08/23/2024 CMP (FEMA LE) chloride 102.0 mmol/ L 98.0-1 10.0 normal Not Available [facility] [address] [facility] 1, [place], [address], 08/23/2024 12:47:11 08/24/19 25 08/23/2024 CMP (FEMA LE) C02 28.0 mmol/ L 22.0-3 1.0 Not Available [facility] [address] [facility] 1, [place], [address], 08/23/2024 12:47:11 08/24/19 25 08/23/2024 CMP (FEMA LE) anion gap 9.0 calc Not Available [facility] [address] [address], [place], [address], 08/23/2024 12:47:11 08/24/19 25 08/23/2024 CMP (FEMA LE) osmolality 288.6 calc Not Available [facility] [address] [facility] 1, [place], [address], 08/23/2024 12:47:11 01/01/20 24 01/01/2024 MAMMO , scree pratik, bilat eral No observ ation record ed. [email or web address] [facility] [address] [place], [address], 01/01/2024 14:34:22 Result Notes None recorded. Problems Name Problem SNOMED Code Status Onset Date Resolution Date Notes Provider Name and Address Organization Details Recorded Time History of hysterecto my 472197987 Active 2021 Hysterect isidro; Abdominal ; 2 2:12PM by Edward Alanis, Office Visit; Promoted; acuity set as *; Not Available [facility] 3 09:08:55 Hypothyroi dism 42629493 Active 2021 Hypothyro idism; Recorded 2 2:12PM by Edward Alanis, Office Visit; Promoted; acuity set as *; EDWARD melgar, [facility] 5 12:55:53 Esophagoga stroduoden oscopy Active 2021 EGD; 02/13/09 @ [facility] by ce; 10/05/[address] Hunt- normal; 2 2:12PM by Edward Alanis, Office Visit; Promoted; acuity set as *; Not Available [facility] 3 09:08:55 Lumpectomy of breast Active 2021 Lumpectom y; 2 2:12PM by Edward Alanis, Office Visit; Promoted; acuity set as *; [facility] 3 09:08:55 Oophorecto my NOS Active 2021 Oophorect isidro; Bilateral ; 2 2:12PM by Edward Alanis, Office Visit; Promoted; acuity set as *; [facility] Available [facility] 3 09:08:55 Colonoscop y Active 2021 Colonosco py; 2001 @ [facility]; 2 2:12PM by Edward Alanis, Office Visit; Promoted; acuity set as *; [facility] Available [facility] 3 09:08:55 Anemia 526439376 Active 2022 EDWARD melgar, [facility] 5 12:55:53 Osteoarthr itis 896536682 Active 2022 EDWARD melgar [facility] 5 12:55:53 Fatigue 91991731 Active 2022 EDWARD melgar [facility] 5 12:55:53 Major depressive disorder 055223387 Active 2022 EDWARD melgar [facility] 5 12:55:53 General unsteadine ss 510175442 Active 2022 EDWARD ALANIS null, [facility] 5 12:55:53 Osteoporos is 02758026 Active 2022 EDWARD ALANIS null, [facility] 5 12:55:53 Essential hypertensi on 72548823 Active 2023 EDWARD HUITRONRIS null, [facility] 5 12:55:53 Systolic murmur 55039910 Active 2023 EDWARD ALANIS null, [facility] 5 12:55:53 Peripheral edema 449256086 Active 2023 EDWARD ALANIS null, [facility] 5 12:55:53 Chronic systolic heart failure 548125272 Active 2023 [facility] 12:55:53 Chronic diastolic heart failure 575818257 Active 2023 [facility] 5 12:55:53 Pulmonary hypertensi on 11463437 Active 2023 EDWARD ALANIS null, [facility] 5 12:55:53 Depressive disorder 97523850 Active 2023 EDWARD HUITRONRIS null, [facility] 5 12:55:53 Acute kidney injury 61611885 Active 2023 [facility] 5 12:55:53 Renal insufficie [facility] 748703871 Active 2023 EDWARD ALANIS [facility] 5 12:55:53 Dyspnea on exertion 55533046 Active 2023 EDWARD ZEKE [facility] 5 12:55:53 Problem Notes None recorded. Procedures Surgical History Date Name Laterality Status Provider Name and Address Organization Details Recorded Time 10/01 esophagogastroduodenosco py completed [facility] 3 12:57:03 10/04 Colonoscopy completed [facility] 3 12:57:35 Imaging Results None recorded. Procedure Notes None recorded. Medical Equipment None Reported. Allergies Allergen ID Allergen Name Allergen Category Reaction Reaction Severity Criticality Documentation Date Start Date Code Code System Note Provider Name and Address Organization Details Recorded Time 173 codeine medicatio n nausea Not available Not available 07/12/2022 2670 RxNorm [facility] 3 12:33:08 174 naproxen medicatio n palpitati ons Not available Not available 07/12/2022 7258 RxNorm [facility] 3 12:33:27 175 Non-stero idal anti-infl ammatory agent (substanc e) medicatio n palpitati ons Not available Not available 07/12/2022 13147 5008 SNOMED [facility] ZEKE [facility] 3 12:33:48 176 Macrobid medicatio n nausea Not available Not available 07/12/2022 60216 1 RxNorm EDWARD ZEKE [facility] 3 12:34:19 56419 cephalexi n monohydra te medicatio n nausea Not available Not available 11/19/2022 30454 8 RxNorm React ion: Nause a; Comme nt: Recor ded 01/12 2:12P M by Brand i Norri s, Offic e Visit ; Promo long; Signi fican ce: *; Reaso n: Drug aller gy; ; Not Available [facility] 3 02:25:47 54044 nitrofura ntoin medicatio n nausea Not available Not available 11/19/2022 7454 RxNorm React ion: Nause a; Comme nt: Recor ded 01/12 2:12P M by Brand i Norri s, Offic e Visit ; Promo long; Signi fican ce: *; Reaso n: Drug aller gy; ; Not Available [facility] 3 02:25:47 83762 Substance with sulfonami de structure and antibacte rial mechanism of action (substanc e) medicatio n nausea Not available Not available 11/19/2022 91278 8003 SNOMED React ion: Eczem a, Nause a; Comme nt: Recor ded 01/12 2:12P M by Brand i Norri s, Offic e Visit ; Promo long; Signi fican ce: *; ; Not Available [facility] 3 02:25:48 91608 codeine sulfate medicatio n Not available Not available Not available 11/19/2022 54843 RxNorm Comme nt: Recor ded 01/12 2:12P M by Brand i Norri s, Offic e Visit ; Promo long; Signi fican ce: *; ; Not Available [facility] 3 02:25:48 5210 Bactrim medicatio n Not available Not available Not available 11/01/2022 66669 9 RxNorm Not Available [facility] 3 16:54:38 Medications Name Sig Start Date Stop Date Status Note LastModified by Organization Details LastModified Time furosemid e 40 mg tablet Take 1 tablet every day by oral route for 30 days. 11/21 completed Not Available Not Available Not Available fluconazo le 100 mg tablet TAKE 1 TABLET BY MOUTH EVERY DAY FOR 3 DAYS 10/17 completed Not Available Not Available Not Available BD Luer-Kp Syringe 3 mL 25 x 1 1/2 TO BE USED WITH CYANOCOB ALAMIN INJECTIO NS active Not Available Not Available No t Available doxycycli ne hyclate 100 mg capsule TAKE 1 CAPSULE BY MOUTH TWICE A DAY FOR 90 DAYS 09/25 completed Not Available Not Available Not Available paroxetin e 10 mg tablet TAKE 1 TABLET BY MOUTH EVERY DAY FOR 3 DAYS 11/21 completed Not Available Not Available Not Available ketoconaz ole 2 % shampoo LATHER ONTO SCALP 2-3 TIMES WEEKLY. ALLOW TO SIT 5 MINUTES BEFORE RINSING active Not Available Not Available No t Available Iron (ferrous sulfate) 325 mg (65 mg iron) tablet Take 1 tablet twice a day by oral route. 08/28 completed Not Available Not Available Not Available azithromy leigh 250 mg tablet TAKE 2 TABLETS BY MOUTH TODAY, THEN TAKE 1 TABLET DAILY FOR 4 DAYS DIRECTED 02/12 completed Not Available Not Available Not Available meloxicam 15 mg tablet TAKE 1 TABLET BY MOUTH EVERY DAY 11/21 completed Not Available Not Available Not Available lisinopri l 20 mg tablet TAKE 1 TABLET BY MOUTH EVERY DAY 11/21 completed Not Available Not Available Not Available prednison e 5 mg tablet TAKE 3 TABS DAILY FOR 3 DAYS, 2 TABLETS DAILY FOR 3 DAYS THEN 1 TABLET DAILY FOR ALLERGIE S 08/28 completed Not Available Not Available Not Available amlodipin e 2.5 mg tablet TAKE 1 TABLET BY MOUTH EVERY DAY active Not Available Not Available No t Available potassium chloride ER 10 mEq tablet,ex tended release Take 1 tablet every day by oral route. 11/21 completed Not Available Not Available Not Available ciproflox acin 250 mg tablet TAKE 1 TABLET BY MOUTH EVERY 12 HOURS FOR 7 DAYS 04/23 completed Not Available Not Available Not Available amlodipin e 5 mg tablet Take 1 tablet every day by oral route for 90 days. 11/21 completed Not Available Not Available Not Available ciproflox acin 500 mg tablet TAKE 1 TABLET BY MOUTH EVERY 12 HOURS FOR 3 DAYS 02/12 completed Not Available Not Available Not Available sulfameth oxazole 800 mg-trimet hoprim 160 mg tablet TAKE 1 TABLET BY MOUTH EVERY 12 HOURS 11/18 completed Not Available Not Available Not Available lovastati n 10 mg tablet TAKE 1 TABLET BY MOUTH EVERYDAY AT BEDTIME 2024 active Not Available Not Available Not Avai lable tramadol 50 mg tablet TAKE 1 TABLET BY MOUTH EVERY 6 HOURS NEEDED FOR 7 DAYS PER INSURANC E active Not Available Not Available No t Available meloxicam 7.5 mg tablet TAKE 1 TABLET BY MOUTH EVERY DAY active Not Available Not Available No t Available betametha sone acetate and sodium phos 6 mg/mL suspensio n for injection Take 1 mL every day by injectio n route for 1 day. 10/10 completed Not Available Not Available Not Available levothyro xine 88 mcg tablet TAKE 1 TABLET BY MOUTH EVERY DAY 2024 active Not Available Not Available Not Avai lable ceftriaxo ne 1 gram solution for injection Take 1 g every day by injectio n route for 1 day. 01/09 completed Not Available Not Available Not Available methenami ne hippurate 1 gram tablet TAKE 1 TABLET BY MOUTH 2X PER DAY FOR RECURREN T UTI, TAKE WITH 1 GRAM OF VITAMIN C WITH EACH DOSE 03/06 completed Not Available Not Available Not Available meclizine 25 mg tablet TAKE 1/2-1 TABLET BY MOUTH FOUR TIMES DAILY, NEEDED 07/12 completed Not Available Not Available Not Available amlodipin e 10 mg tablet TAKE 1 TABLET BY MOUTH EVERY DAY 10/17 completed Not Available Not Available Not Available triamcino lone acetonide 40 mg/mL suspensio n for injection Take 20 mg by injectio n route for 1 day. 11/21 completed 20mg dose given as a trigger point injectio n in mid left trapeziu s area. No complica tion. Not Available Not Available Not Available pantopraz ole 40 mg tablet,de layed release TAKE 1 TABLET BY MOUTH TWICE A DAY active Not Available Not Available No t Available cyanocoba shwetha (vit B-12) 1,000 mcg/mL injection solution INJECT 1 ML EVERY MONTH BY SUBCUTAN EOUS ROUTE EVERY 28 DAYS. 2024 active Not Available Not Available Not Avai lable losartan 25 mg tablet TAKE 1 TABLET BY MOUTH EVERY DAY 08/23 completed Not Available Not Available Not Available nitroglyc deshawn 0.4 mg sublingua l tablet as needed 2020 active Recorded 06/03/19 22 11:03AM by Abeba Ortega, Office Visit; Refill Quantity : 20; Tablet; Not Available Not Available Not Available omeprazol e 20 mg capsule,d elayed release TAKE 1 CAPSULE BY MOUTH TWICE A DAY 09/30 completed Not Available Not Available Not Available dorzolami de 22.3 mg-timolo l 6.8 mg/mL eye drops INSTILL 1 DROP INTO BOTH EYES TWICE A DAY active Not Available Not Available No t Available monteluka st 10 mg tablet TAKE 1 TABLET BY MOUTH EVERY DAY 2024 active Not Available Not Available Not Avai lable furosemid e 20 mg tablet TAKE 1 TABLET BY MOUTH EVERY DAY NEEDED FOR EDEMA active Not Available Not Available No t Available fluocinon génesis 0.05 % topical solution APPLY TO AFFECTED AREA TWICE A DAY NEEDED 01/23 completed Not Available Not Available Not Available ketoconaz ole 2 % topical cream APPLY TO AFFECTED AREA 2 TIMES DAILY TO AREAS IN SKIN FOLDS X 3 WEEKS THEN NEEDED FOR FLARES 01/23 completed Not Available Not Available Not Available clobetaso l 0.05 % scalp solution APPLY TO ITCHY AREAS ON SCALP TWICE DAILY NEEDED active Not Available Not Available No t Available cefdinir 300 mg capsule TAKE 1 CAPSULE BY MOUTH TWICE A DAY X 7 DAYS 02/12 completed Not Available Not Available Not Available losartan 100 mg tablet TAKE 1 TABLET BY MOUTH EVERY DAY active Not Available Not Available No t Available doxycycli ne hyclate 100 mg tablet TAKE 1 TABLET BY MOUTH TWICE A DAY 02/23 completed Not Available Not Available Not Available spironola ctone 50 mg tablet TAKE 1 TABLET BY MOUTH EVERY DAY FOR 30 DAYS 11/21 completed Not Available Not Available Not Available amoxicill in 875 mg-potass ium clavulana te 125 mg tablet Take 1 tablet every 12 hours by oral route for 7 days. 11/12 completed Not Available Not Available Not Available Tylenol Extra Strength 500 mg tablet 2012 active 9; Recorded 05/20/19 15 2:34PM by Katlyn Silver RN (Authori zed through Bryan Howe MD), Office Visit; Refill Quantity : 0; Not Available Not Available Not Available escitalop brandi 5 mg tablet TAKE 1 TABLET BY MOUTH EVERY DAY 11/12 completed Not Available Not Available Not Available melatonin daily 01/09 completed 0; Recorded 01/13/20 22 2:11PM by Edward Alanis, Office Visit; Not Available Not Available Not Available fluocinon génessi two times daily, as needed 11/28 completed 1 bottle whatever amt. is usually given; Recorded 07/24/19 22 11:20AM by Edward Alanis, Office Visit; Refill Quantity : 90; Millilit er; Not Available Not Available Not Available diphenhyd ramine HCl as needed 01/09 completed 0; Recorded 01/13/20 22 2:11PM by Edward Alanis, Office Visit; Not Available Not Available Not Available ICaps daily 01/23 completed 9; Recorded 07/31/19 19 11:11AM by Kimberlyn Emerson LPN (Authori shraddha through Bryan Howe MD), Office Visit; Refill Quantity : 0; Not Available Not Available Not Available omeprazol e twice a day 01/09 completed Recorded 09/07/19 7:42AM by Bryan Howe MD, Refill Request; Refill Quantity : 180; Tablet; Not Available Not Available Not Available meclizine four times daily, as needed 01/09 completed for vertigo; Recorded 08/12/19 22 12:13PM by ANITRA Pace, Office Visit; Refill Quantity : 40; Tablet; Not Available Not Available Not Available doxycycli ne hyclate daily for UTI treatmen t 08/23 completed Not Available Not Available Not Available lisinopri l daily 11/28 completed doc JR/tn; 173; Recorded 06/03/19 23 9:50AM by Manny pena (Authori zed through Chang Wadsworth MD), Refill Request; Refill Quantity : 90; Tablet; Not Available Not Available Not Available Centrum Silver 2012 active 9; Recorded 05/20/19 15 2:33PM by Katlyn Silver RN (Authori shraddha through Bryan Howe MD), Office Visit; Refill Quantity : 0; Not Available Not Available Not Available Vitamin D3 2012 active 9; Recorded 05/20/19 15 2:34PM by Katlyn Silver RN (Authori ravend through Bryan Howe MD), Office Visit; Refill Quantity : 0; Not Available Not Available Not Available Mylanta prn 01/09 completed 0; Recorded 01/13/20 22 2:11PM by Edward Alanis, Office Visit; Not Available Not Available Not Available Calcium+D daily 11/21 completed 9; Recorded 07/31/19 19 11:11AM by Kimberlyn Emerson LPN (Authori shraddha through Bryan Howe MD), Office Visit; Refill Quantity : 0; Not Available Not Available Not Available Prolia 60 mg/mL subcutane ous syringe q 6mos 06/20 completed 0; Recorded 01/13/20 22 2:11PM by Edward Alanis, Office Visit; Not Available Not Available Not Available ciproflox acin HCl bid prn 11/28 completed 0; Recorded 01/13/20 22 2:11PM by Edward Alanis, Office Visit; Not Available Not Available Not Available magnesium 400 mg (as magnesium oxide) tablet Take 2 tablets every day by oral route at bedtime. 11/21 completed Not Available Not Available Not Available Vitals Date Recorded Body height Body mass index (BMI) Body weight Oxygen saturation Oxygen saturation in Arterial blood by Pulse oximetry Heart rate Systolic And Diastolic Provider Name and Address Organization Details Last Updated DateTime 5 162.56 cm 25.2 kg/m2 37711.0 8 g 97 % 97 % 71 /min 172/80 mm[Hg] EDWARD ALANIS [facility] 5 10:51:39 Date Recorded Body height Body mass index (BMI) Body weight Oxygen saturation Oxygen saturation in Arterial blood by Pulse oximetry Heart rate Respiratory rate Body temperature Systolic And Diastolic Provider Name and Address Organization Details Last Updated DateTime 4 162.56 cm 25.6 kg/m2 35845.2 6 g 98 % 98 % 84 /min 18 /min 98.2 [degF] 160/80 mm[Hg] Ermelinda Don [facility] 4 10:00:10 Date Recorded Body height Body mass index (BMI) Body weight Oxygen saturation Oxygen saturation in Arterial blood by Pulse oximetry Heart rate Systolic And Diastolic Provider Name and Address Organization Details Last Updated DateTime 4 162.56 cm 25.4 kg/m2 65105.6 7 g 98 % 98 % 71 /min 132/80 mm[Hg] [facility] 4 14:53:10 Date Recorded Body height Body mass index (BMI) Body weight Body temperature Heart rate Oxygen saturation Oxygen saturation in Arterial blood by Pulse oximetry Systolic And Diastolic Provider Name and Address Organization Details Last Updated DateTime 4 162.56 cm 25.8 kg/m2 80790.5 6 g 98.1 [degF] 74 /min 95 % 95 % 142/70 mm[Hg] Natividad Linda [facility] 4 11:26:51 Date Recorded Body height Body mass index (BMI) Body weight Oxygen saturation Oxygen saturation in Arterial blood by Pulse oximetry Heart rate Systolic And Diastolic Provider Name and Address Organization Details Last Updated DateTime 4 162.56 cm 25.6 kg/m2 92850.2 6 g 97 % 97 % 65 /min 200/94 mm[Hg] [facility] 4 11:16:35 Social History None recorded. Functional Status Question Answer Note LastModified by Organizat ion Details LastModified Time Do you use any illicit or recreational drugs? No [email or web address] Information not available 07/12/2022 What is your level of alcohol consumption? None Information not available 07/12/2022 Mental Status None recorded. Family History Nothing Reported. Medical History No medical history recorded. Gynecological HistoryNo gynecological history recorded. Obstetrics History GPAL:G 0 P 0 0 0 0 Immunizations Vaccine Type Date Status Note Provider Nam e and Address Organization Details Recorded Time Influenza, split virus, trivalent, preservative 2 completed Not Available [facility] 03/21/2023 10:23:37 Influenza, split virus, trivalent, preservative 8 completed Not Available [facility] 03/21/2023 10:23:37 Influenza, split virus, trivalent, preservative 7 completed Not Available [facility] 03/21/2023 10:23:37 Influenza, split virus, trivalent, preservative 3 completed Not Available [facility] 03/21/2023 10:23:37 Pneumococcal conjugate PCV 13 6 completed Not Available [facility] 03/21/2023 10:23:37 Influenza, split virus, trivalent, preservative 3 completed Not Available [facility] 03/21/2023 10:23:37 Influenza, split virus, trivalent, preservative 6 completed Not Available [facility] 03/21/2023 10:23:37 COVID-19, mRNA, LNP-S, PF, 50 mcg/0.5 mL 3 completed EDWARD melgar, [facility] 08/11/2023 11:41:37 Influenza, adjuvanted, trivalent, PF 4 completed Not Available [facility] 08/23/2024 10:35:12 Influenza, split virus, quadrivalent, PF 3 completed EDWARD melgar [facility] 01/09/2023 12:17:59 Influenza, high-dose, quadrivalent, PF 1 completed Not Available [facility] 11/07/2022 16:54:39 Influenza, high-dose, quadrivalent, PF 2 completed Not Available [facility] 11/07/2022 16:54:39 COVID-19, mRNA, LNP-S, PF, 30 mcg/0.3 mL dose 1 completed Not Available [facility] 11/07/2022 16:54:39 COVID-19, mRNA, LNP-S, PF, 30 mcg/0.3 mL dose 1 completed Not Available [facility] 11/07/2022 16:54:39 COVID-19, mRNA, LNP-S, PF, 30 mcg/0.3 mL dose 2 completed Not Available [facility] 11/07/2022 16:54:39 COVID-19, mRNA, LNP-S, PF, 30 mcg/0.3 mL dose 1 completed Not Available [facility] 11/07/2022 16:54:39 COVID-19, mRNA, LNP-S, bivalent, PF, 30 mcg/0.3 mL dose 2 completed Not Available [facility] 11/07/2022 16:54:39 Influenza, high-dose, trivalent, PF 5 completed Not Available [facility] 11/07/2022 16:54:39 Past Encounters Encounter ID Performer Location Encounter Start Date Encounter Closed Date Diagnosis/Indication Diagnosis SNOMED-CT Code Diagnosis ICD10 Code Diagnosis Note [id number] Bryan Howe MD [facility] ([facility]) [address] [place] [address] [phone] 5 07/12/2022 12:12:41 07/18/2022 14:14:34 Hypothyroidism 90437649 E03.9 Spasm 76272299 R25.2 legs off and on. Will check BMP and CBC. Anemia 971795193 D64.9 Mildly low Hct at last check will recheck. Multiple a ctinic keratoses 550056423 L57.0 one lateral right brow and 2 on right forearm. Cryotherap y performed on these. Recurrent urinary tract infection 389586957 N39.0 6 Nida Proctor MD [facility] ([facility]) [address] [place] [address] [id number] 5 07/20/2022 10:36:35 07/30/2022 20:20:38 Acute urinary tract infection 522039497 N39.0 +nitrates, pt has cipro course at home she will start taking. [id number] ANITRA PACE [facility] ([facility]) [address] [place] [address] [phone] 5 09/05/2022 08:42:25 09/18/2022 08:34:17 Dysuria 70952882 R30.0 Acute cystitis 49829653 N30.00 [id number] Keyon Cardoso MD [facility] ([facility]) [address] [place] [address] 5 09/20/2022 14:42:10 09/21/2022 15:19:23 Lightheadedness 579429543 R42 Fatigue 64828262 R53.83 Dysuria 14660383 R30.0 [id number] Bryan Howe MD [facility] ([facility]) [address] [place], [place] [phone] 5 09/21/2022 13:39:36 09/21/2022 16:33:28 Fatigue 75527274 R53.83 Anemia 206848491 D64.9 worsening. Drop from 12 to around 11 in 6 months. Major depr essive disorder 742105736 F32.9 [id number] Chang Wadsworth MD [facility] ([facility]) [address] [place] [address] 5 09/30/2022 11:38:59 09/30/2022 13:25:32 Anemia 444615018 D64.9 Iron defic iency anemia 15439737 D50.9 Heartburn 61313416 R12 [id number] Bryan Howe MD [facility] ([facility]) [address] [place] [address] 5 10/18/2022 14:46:29 10/18/2022 16:44:52 Low back pain 350464028 M54.50 left trapezius spasm Recurrent urinary tract infection 493131125 N39.0 [id number] Keyon Cardoso MD [facility] ([facility]) [address] [place], [place] [phone] 5 11/01/2022 09:26:11 11/01/2022 17:16:46 Dysuria 98820083 R30.0 Patient continues to have symptoms despite treatment. Last urine culture was negative. Given patient's symptoms we will go ahead and obtain another UA and culture. We will give 1 g of ceftriaxon e today and start cefdinir. If UA and culture are negative we will notify the patient. [id number] Chang Wadsworth MD [facility] ([facility]) [address] [place] [address] [id number] 5 11/18/2022 12:50:56 11/29/2022 22:54:03 Tubular adenomatous polyp of colon 532741224 D12.6 Chronic gastritis 861891 9 K29.50 Iron defic iency anemia 27862784 D50.9 [id number] Bryan Howe MD [facility] ([facility]) [address] [place] [address] [id number] 5 01/09/2023 10:29:58 01/09/2023 12:58:23 Hypothyroidism 69866808 E03.9 Major depr essive disorder 043353531 F32.9 Osteoarthritis 662701028 M19.90 Subdural i ntracranial hematoma 36228412 S06.5X0D Fracture of maxilla 2631 41978 S02.400D Recurrent urinary tract infection 762978312 N39.0 [id number] Keyon Cardoso MD [facility] ([facility]) [address] [place] [address] [id number] 5 01/28/2023 11:01:02 01/28/2023 16:54:51 Dysuria 01365979 R30.0 Acute urin vanessa tract infection 587774867 N39.0 Urine is concerning for UTI. This is consistent with the patient's symptoms. We will treat with antibiotic s. Patient was encouraged to drink plenty of fluids. Culture will be sent. [id number] Keyon Cardoso MD [facility] ([facility]) [address] [place] [address] [id number] 5 02/23/2023 09:12:22 02/23/2023 18:33:11 Dysuria 72542882 R30.0 Acute urin vanessa tract infection 760924189 N39.0 Symptoms are concerning for UTI. Although, her urine does not correlate specifical ly for UTI. We will send urine for culture. With her symptoms and history we will go ahead and treat at this time. Patient was encouraged to follow-up with her PCP to recurrent issues. [id number] Bryan Howe MD [facility] ([facility]) [address] [place] [address] [id number] 5 03/06/2023 10:02:18 03/06/2023 14:19:39 Fracture of maxilla 007963108 S02.400D Subdural i ntracranial hematoma 29555423 S06.5X0D resolved Polyuria 91893286 R35.89 General unsteadiness 271 648115 R26.81 Osteoporosis 42259777 M8 1.0 Iron defic iency anemia 65051078 D50.9 [id number] Bryan Howe MD [facility] ([facility]) [address] [place] [address] [id number] 5 03/21/2023 10:23:16 03/21/2023 18:51:03 [id number] Keyon Cardoso MD [facility] ([facility]) [address] [place] [address] [id number] 5 05/25/2023 13:36:01 05/25/2023 17:25:29 Dysuria 16633158 R30.0 Acute urin vanessa tract infection 635464501 N39.0 Likely the urine is negative for UTI as she had already taken 3 days of Cipro. Will continue this medication and continue treatment. Will send urine for culture [id number] Bryan Howe MD [facility] ([facility]) [address] [place] [address] [id number] 5 06/20/2023 10:35:52 06/20/2023 14:01:51 Fracture of maxilla 650548547 S02.400D stable General unsteadiness 271 746989 R26.81 Low back pain 301335333 M54.50 followed by pain clinic. Major depr essive disorder 328336880 F32.9 Subdural i ntracranial hematoma 16309543 S06.5X0D resolved Fatigue 11040642 R53.83 Bilateral cramp of muscle of lower limbs 1494241340 2941154 R25.2 Essential hypertension 95121002 I10 Seasonal a llergic rhinitis 575525352 J30.2 [id number] Bryan Howe MD [facility] ([facility]) [address] [place] [address] [id number] 5 08/11/2023 11:35:55 08/11/2023 12:55:07 Fatigue 03594732 R53.83 Unsteady when walking 22 896340 R26.89 Iron defic iency anemia 04567807 D50.9 appears resolved. WIll stop iron tabs and try B12 injections for fatigue for a few months. Systolic murmur 57049864 R01.1 followed by cardiology with echo pending. Trochanter ic bursitis of left hip 2179257381 41360 M70.62 [id number] Bryan Howe MD [facility] ([facility]) [address] [place] [address] [id number] 5 08/29/2023 09:42:29 08/29/2023 10:40:21 Peripheral edema 540341814 R60.9 Systolic murmur 37587449 R01.1 followed by cardiology with echo pending. Unsteady when walking 22 564680 R26.89 she says that she did not hear from PT to begin this. [id number] Bryan Howe MD [facility] ([facility]) [address] [place] [address] [id number] 5 09/08/2023 10:44:50 09/08/2023 12:42:37 Vitamin B12 deficiency (non anemic) 35460667 E53.8 [id number] Bryan Howe MD [facility] ([facility]) [address] [place] [address] [id number] 5 09/26/2023 14:50:37 09/28/2023 22:58:19 Unsteady when walking 80138509 R26.89 she says that she did not hear from PT to begin this. Peripheral edema 8633245 00 R60.9 Chronic sy stolic heart failure 203882924 I50.22 Echo was done on 09/12 but no report in system yet. [id number] Bryan Howe MD [facility] ([facility]) [address] [place] [address] [id number] 5 10/06/2023 11:49:54 10/06/2023 12:18:41 [id number] ANITRA GIL [facility] ([facility]) [address] [place] [address] [id number] 5 10/11/2023 10:43:46 10/11/2023 11:17:24 Dysuria 09758660 R30.0 Urine dip not indicative of infection. Urine culture sent Painful ur ging to urinate 47453202 R30.0 Vaginitis 70159016 N76.0 Will start on diflucan. [id number] Bryan Howe MD [facility] ([facility]) [address] [place] [address] [id number] 5 10/18/2023 15:02:13 10/18/2023 17:27:45 Peripheral edema 071739130 R60.9 Chronic di astolic heart failure 553245265 I50.32 Pulmonary hypertension 27324032 I27.20 [id number] Bryan Howe MD [facility] ([facility]) [address] [place], [place] [phone] 5 11/03/2023 10:01:42 11/03/2023 12:38:06 [id number] Bryan Howe MD [facility] ([facility]) [address] [place] [address] 5 11/13/2023 10:26:21 11/13/2023 13:38:32 Hypothyroidism 57603411 E03.9 Bilateral cramp of muscle of lower limbs 0544555101 0171205 R25.2 Chronic di astolic heart failure 652487632 I50.32 Pulmonary hypertension 49298370 I27.20 Depressive disorder 3548 9007 F32.A Dysuria 99966280 R30.0 Osteoarthritis 841862906 M19.90 Major depr essive disorder 202386861 F32.9 [id number] Bryan Howe MD [facility] ([facility]) [address] [place] [address] [phone] 5 11/22/2023 14:00:48 11/22/2023 16:56:45 Dehydration 60997456 E86.0 resolved clinically . Acute kidney injury 1466 9001 N17.9 I will recheck labs today Essential hypertension 93635954 I10 [id number] Bryan Howe MD [facility] ([facility]) [address] [place] [address] [phone] 5 12/15/2023 11:30:06 12/15/2023 16:38:52 Acute kidney injury 28793310 N17.9 resolved as of last visit. Chronic di astolic heart failure 638835590 I50.32 Chronic sy stolic heart failure 245441440 I50.22 EF 50-55% by Echo. Essential hypertension 12104731 I10 stable at present. [id number] ANITRA GIL [facility] ([facility]) [address] [place] [address] [id number] 5 01/24/2024 09:41:24 01/24/2024 11:02:45 Dysuria 17835931 R30.0 Urine dip not indicative of infection. Urine culture sent. Will contact patient with culture results. [id number] Bryan Howe MD [facility] ([facility]) [address] [place] [address] [id number] 5 02/13/2024 14:39:59 02/14/2024 09:19:54 Essential hypertension 93621080 I10 stable at present. General unsteadiness 271 999983 R26.81 Osteoarthritis 512698173 M19.90 Renal insufficiency 7231 97493 N28.9 mild due to dehyhdrati on at ER, will monitor. Recurrent urinary tract infection 040838042 N39.0 [id number] ANITRA GIL [facility] ([facility]) [address] [place] [address] [id number] 5 03/26/2024 11:07:15 03/26/2024 13:10:32 Dysuria 85788897 R30.0 Acute urin vanessa tract infection 165614599 N39.0 UA results reviewed and discussed with pt. We will start antibiotic s. Pt will increase oral fluids. Return to office with no improvemen t or any problems. Go to ER with severe worsening or severe problems.W e will obtain urine culture [id number] Bryan Howe MD [facility] ([facility]) [address] [place] [address] [id number] 5 04/23/2024 11:05:59 04/23/2024 13:12:07 Acute kidney injury 98259209 N17.9 resolved by report. Recurrent urinary tract infection 874104822 N39.0 Dyspnea on exertion 6084 5006 R06.09 exam was normal. Essential hypertension 44921920 I10 BP high today but was running late. [id number] Bryan Howe MD [facility] ([facility]) [address] [place] [address] [id number] 5 08/23/2024 10:34:29 08/26/2024 10:22:18 Hypothyroidism 49749505 E03.9 Chronic di astolic heart failure 751189369 I50.32 Essential hypertension 78515290 I10 Working with Cardiology on med changes. Renal insufficiency 7231 07670 N28.9 history of mild renal insufficie ncy. Health Concerns Section Related Observation LastModified by Organization Detai ls LastModified Time None Recorded Concern Status LastModified by Organization Details LastModified Time None Recorded Advance Directives Directive None Recorded Payers Insurance Date Sequence Insurance Name Policy Number Policy Zaldivar Covered Member ID Zaldivar Member ID Guarantor Name 11/22/2023 2 [employer] Dionna Ortiz Deatherage [id number] Dionna Ortiz Deatherage 08/22/2024 1 [place]IC[place] Dionna Ortiz Deatherage [id number] Dionna Ortiz Deatherage 08/22/2024 [place] - PART A - RHC-FQ (MEDICARE) Dionna Ortiz Deatherage [id number] Dionna Ortiz Deatherage Notes Date Note Type Note Provider Name and Address Organization Details Recorded Time 4 text/htm l Lower Urinary Tract Symptoms (LUTS)Reported by PatientROS as noted in the HPI walk in patientpatient is here today for urinary symptoms. Pt is followed by Dr. Sharp, Urology. She has doxycycline to take BID x 3 days when developing urinary symptoms. Pt has not started her doxy yet. Denies abd pain, fever, back pain, or weakness. States she has noticed her urine is darker color and strong odor. ANITRA GIL [address] [place] [address], [phone], [facility] 01/24/2024 10:59:35 4 text/htm l Angina/Chest PainReported by PatientHPIFor quality, patient reportspressure. For context, patient reportsexertionalandat rest. For associated symptoms, patient reportsshortness of breath,exertional dyspnea, anddizzinessbut reportsno cough. For location, patient reportsmidsternalanddoes not radiate. For severity, patient reportsmild. Went to ER on 01/27 for chest pain.They told her she had a UTI and she has completed abx for that. She was also a bit dehydrated with slightly elevated BUN and CR. Bryan Howe MD [address] [place], [address], [facility] 02/13/2024 15:09:28 4 text/htm l ROS as noted in the HPI walk in ptPt is having foul smelling urine for a week. Denies back pain, weakness, fever, or vomiting. Is eating/drinking well. States she feels a little tired. Has not taken any meds for this. ANITRA GIL [address] [place], [phone], [facility] 03/26/2024 17:08:06 4 text/htm l Hypertension IM/FMReported by PatientHPIFor severity, patient reportsstage 2 (>140/>90 mmhg). For associated symptoms, patient reportsexertional dyspneaandchest pain (at times, intermittent.)but reportsno palpitations. For quality, patient reportshere for check-up. For onset/timing, patient reportsgradual onset. For alleviating factors, patient reportsmedication. Was seen in walk in on 03/26 for UTI sx. Completed abx. Thinks that she is better with that. Has still been having dizziness and increased SOB. Has noticed that she is SOB on exertion and has had some coughing, dry. IZABEL melgar, [facility] 04/23/2024 11:42:21 5 text/htm l HyperlipidemiaReported by PatientHPIFor duration, patient reportschronic. For risk factors, patient reportshypertension. For control, patient reportsusually well controlled. For adherence to treatment plan, patient reportstakes medications as prescribed. Hypertension IM/FMReported by PatientHPIFor severity, patient reportsstage 2 (>140/>90 mmhg)(home bp readings: 161/67, 128/65, 158/70, 156/66, 160/71). For associated symptoms, patient reportsheadachesbut reportsno shortness of breath,no palpitations, andno chest pain. For quality, patient reportshere for check-up. For onset/timing, patient reportsgradual onset. For alleviating factors, patient reportsmedication. HypothyroidReported by PatientHPIFor reason for visit, patient reportsgeneral check-up. For associated symptoms, patient reportsno weaknessandno lightheadedness. For treatment, patient reportstaking medication as prescribed. Would like to have her lab work done and wants her kidney function checked. Bryan Howe MD [address] [place] [address], [phone], [facility] 08/23/2024 11:27:05 OBGyn Episode No OBEpisode recorded.
--- NOTE | 2024-11-17 09:29 | W.ED.DIZZY ---
HPI - Dizziness General: Chief Complaint: Dizziness Stated Complaint: dizzy Time Seen by Provider: 11/17/24 09:22 Source: patient and EMS Mode of arrival: EMS Limitations: no limitations History of Present Illness: HPI Narrative: 84-year-old female states she has been having some weakness in feeling dizzy since yesterday. States she feels like the room is spinning at times she denies any focal weaknesses or slurred speech. Has history of 2 UTIs in the past and concerned she may have a UTI she denies any pain or fevers Associated symptoms: Reports malaise; Denies chest pain, chills, headache(s), nausea or vomiting Related Data Home Medications ?Medication ?Instructions ?Recorded ?Confirmed aluminum-mag hydroxide-simethicone 5 ml PO QID PRN Acid Reflux 06/18/19 08/07/24 400 mg-400 mg-40 mg/5 mL oral susp (Mylanta Maximum Strength) calcium 300 mg-vit D3 200 1 tab PO BID 06/18/19 08/07/24 [id number] 13.5 mg tablet (Citracal Plus Bone Density Builder) cholecalciferol (vitamin D3) 1,250 1,250 mcg PO BID 06/18/19 08/07/24 mcg (50,000 unit) capsule lovastatin 10 mg tablet 10 mg PO DAILY 06/18/19 08/07/24 melatonin 3 mg capsule 1.5 mg PO DAILY 06/18/19 08/07/24 voysmopl-rir-pigjn acid 0.4 1 tab PO DAILY 06/18/19 08/07/24 mg-lycopene 300 mcg-lutein 250 mcg tablet (Centrum Silver) vit C,E,copper,zinc-xmmws2k 250 1 cap PO DAILY 06/18/19 08/07/24 mg-lutein 5 mg-zeaxanthin 1 mg capsule (Ocuvite Adult 50 Plus) montelukast 10 mg tablet 10 mg PO DAILY 03/09/21 08/07/24 HYLANDS LEG CRAMP 1 tab PO DAILY PRN LEG CRAMP 06/16/22 11/18/23 dorzolamide 22.3 mg-timolol 6.8 1 drp ophthalmic (eye) BID 01/01/23 08/07/24 mg/mL eye drops pantoprazole 40 mg tablet,delayed 40 mg PO BID 01/01/23 08/07/24 release magnesium 250 mg tablet 250 mg PO DAILY 08/09/23 08/07/24 cyanocobalamin (vitamin B-12) 2,500 mcg PO DAILY 11/18/23 08/07/24 2,500 mcg sublingual tablet (Vitamin B-12) meloxicam 15 mg tablet 15 mg PO DAILY 08/07/24 08/07/24 levothyroxine 88 mcg tablet 88 mcg PO DAILY 11/17/24 11/17/24 Previous Rx's ?Medication ?Instructions ?Recorded ketoconazole 2 % shampoo 1 applic topical .2x weekly #120 mL 03/21/22 doxycycline hyclate 100 mg tablet 100 mg PO BID #60 tabs 09/08/22 potassium gluconate 595 mg (99 mg) 595 mg PO DAILY PRN With diuretic 11/20/23 tablet #1 tab losartan 100 mg tablet 100 mg PO DAILY #90 tabs 08/23/24 furosemide 20 mg tablet (Lasix) 20 mg PO DAILY PRN edema #90 tabs 08/30/24 amlodipine 2.5 mg tablet 2.5 mg PO DAILY #90 tabs 10/09/24 meclizine 25 mg tablet 25 mg PO BID PRN dizziness #20 tabs 11/17/24 Allergies Allergy/AdvReac Type Severity Reaction Status Date / Time codeine Allergy NA Verified 08/07/24 13:48 naproxen (From Aleve) Allergy NA Verified 08/07/24 13:48 nitrofurantoin (From Allergy NA Verified 08/07/24 13:48 Macrobid) Sulfa (Sulfonamide Allergy NA Verified 08/07/24 13:48 Antibiotics) sulfamethoxazole (From Allergy Unknown Verified 08/07/24 13:48 Sulfamethoxazole-Trimethoprim) trimethoprim (From Allergy Unknown Verified 08/07/24 13:48 Sulfamethoxazole-Trimethoprim) Review of Systems Const: Reports: malaise; Denies: fever(s), chills, body aches or change in appetite ENMT: Denies: throat pain or dental pain Card: Denies: chest pain Resp: Denies: dyspnea GI: Denies: abdominal pain, nausea, vomiting or diarrhea : Denies: dysuria Musc: Denies: neck pain or back pain Skin/Breast: Denies: rash Neuro: Reports: dizziness; Denies: headache(s) PFSH ED PFSH: Medical History Hypertension Recurrent UTI Chronic cystitis Surgical History Hx of cataract surgery H/O total hysterectomy S/P colon resection History of lumpectomy of left breast Family History Father , 79 Dementia Mother , 38 Cancer Social History Smoking and tobacco/nicotine status: never used tobacco/nicotine Alcohol intake: never Substance/Drug Use: never Marital status: / Current occupational status: retired Physical Exam Const: COMMON NORMALS: no acute distress, patient oriented x3 and healthy appearing HENMT: COMMON NORMALS: normocephalic and atraumatic HEAD & SCALP: normocephalic and atraumatic Eye: COMMON NORMALS: Equal, round and reactive pupils present and EOMs intact bilaterally PUPIL: Yes Equal, round and reactive pupils present OTHER: no nystagmus noted Neck/C-Spine: COMMON NORMALS: full ROM and supple Chest: COMMONS NORMALS: normal inspection of the chest and normal palpation of entire chest wall Resp: COMMON NORMALS: normal respiratory effort, No retractions, No use of accessory muscles and clear to auscultation bilaterally AUSCULTATION: clear to auscultation bilaterally Cardio: COMMON NORMALS: regular rate, regular rhythm and No murmurs present (Cardio) RATE: regular rate RHYTHM: regular rhythm GI: COMMON NORMALS: Normal to inspection, nondistended, normoactive bowel sounds present, Soft to palpation, non-tender and no masses PALPATION: Yes Soft to palpation Extremity: COMMON NORMALS: normal to inspection and full ROM Neuro: COMMON NORMALS: patient oriented x3, moves all extremities and no focal motor deficits CRANIAL NERVES: Yes CN normal except as noted SPEECH: speech normal MOTOR EXAM: 5/5 motor strength present throughout Psych: COMMON NORMALS: mental status grossly normal, Normal thought process present and cooperative THOUGHT PROCESS: Normal thought process present Skin: COMMON NORMALS: no rashes or lesions noted and no wounds GENERAL SKIN EXAM: no rashes or lesions noted Course Vital Signs: Vital signs: Vital Signs Temperature 98.4 F 11/17/24 09:23 Pulse Rate 71 11/17/24 09:23 Respiratory Rate 16 11/17/24 09:23 Blood Pressure 184/85 11/17/24 09:23 Pulse Oximetry 96 11/17/24 09:23 Oxygen Delivery Me thod Room Air 11/17/24 09:23 MDM - Dizziness Medical Decision Making Patient presents here with vertigo she has had history of vertigo in the past she feels much improved after meclizine was able to ambulate without any difficulty head CT is normal no signs of a stroke. Her blood work urinalysis is normal she stable for discharge follow-up with PCP return if worsening. Medical Records I reviewed the patient's medical records. Lab Data I reviewed the patient's lab results. 11/17/24 09:10 11/17/24 09:10 Radiology Impressions Chest X-Ray 11/17/24 09:25 IMPRESSION: No acute pulmonary finding. Head CT 11/17/24 09:25 IMPRESSION: 1. No acute intracranial finding. 2. Degree of central atrophy is out of proportion with respect to the cortical atrophy. Consider NPH. Clinical correlation is advised. 3. Likely mild small-vessel ischemic changes. Laboratory Results WBC 6.64 10^3/uL (3.29-11.43) 11/17/24 09:10 RBC 4.00 10^6/uL (3.85-5.65) 11/17/24 09:10 Hgb 12.70 g/dL (11.27-16.99) 11/17/24 09:10 Hct 37.9 % (36-47) 11/17/24 09:10 MCV 94.8 fl (85-98) 11/17/24 09:10 MCH 31.8 pg (27-33) 11/17/24 09:10 MCHC 33.5 g/dL (30-55) 11/17/24 09:10 RDW 12.4 % (12.1-15.1) 11/17/24 09:10 Plt Count 331 10^3/cmm (157-399) 11/17/24 09:10 MPV 8.6 fL (7.4-10.4) 11/17/24 09:10 Neut % (Auto) 69.1 % 11/17/24 09:10 Lymph % (Auto) 20.0 % 11/17/24 09:10 [place] % (Auto) 7.2 % 11/17/24 09:10 Eos % (Auto) 1.7 % 11/17/24 09:10 Baso % (Auto) 1.5 % 11/17/24 09:10 Neut # (Auto) 4.59 10^3/uL (1.8-7.7) 11/17/24 09:10 Lymph # (Auto) 1.3 10^3/uL (0.8-4.8) 11/17/24 09:10 [place] # (Auto) 0.5 10^3/uL (0.2-0.9) 11/17/24 09:10 Eos # (Auto) 0.1 10^3/uL (0.0-0.8) 11/17/24 09:10 Baso # (Auto) 0.1 10^3/uL (0.0-0.1) 11/17/24 09:10 Nucleated RBC % (auto) 0 % 11/17/24 09:10 Nucleated RBCs # 0.0 /100WBC 11/17/24 09:10 Sodium 133 mmol/L (136-145) L 11/17/24 09:10 Potassium 4.1 mmol/L (3.5-5.1) 11/17/24 09:10 Chloride 94 mmol/L (98-107) L 11/17/24 09:10 Carbon Dioxide 25 mmol/L (22-29) 11/17/24 09:10 Anion Gap 18.1 (5-19) 11/17/24 09:10 BUN 16 mg/dL (8-23) 11/17/24 09:10 Creatinine 0.8 mg/dL (0.5-0.9) 11/17/24 09:10 GFR Calculation Not Reportable 11/17/24 09:10 Glucose 112 mg/dL (65-115) 11/17/24 09:10 Calculated Osmolality 278 mOsm/kg (285-295) L 11/17/24 09:10 Calcium 10.1 mg/dL (8.5-10.5) 11/17/24 09:10 Total Bilirubin 0.4 mg/dL (0.15-1.2) 11/17/24 09:10 AST 24 U/L (0-32) 11/17/24 09:10 ALT 15 U/L (0-33) 11/17/24 09:10 Alkaline Phosphatase 77 U/L (35-105) 11/17/24 09:10 Total Protein 8.5 g/dL (6.6-8.7) 11/17/24 09:10 Albumin 4.8 g/dL (3.5-5.2) 11/17/24 09:10 Globulin 3.7 g/dL (1.3-4.6) 11/17/24 09:10 Lipase 49 U/L (13-60) 11/17/24 09:10 Urine Color Yellow (Yellow) 11/17/24 10:25 Urine Appearance Clear (CLEAR) 11/17/24 10:25 Urine pH 8.0 (5-7) A 11/17/24 10:25 Ur Specific [place] 1.010 (1.005-1.030) 11/17/24 10:25 Urine Protein Negative (Negative) 11/17/24 10:25 Urine Glucose (UA) Negative (Normal) 11/17/24 10:25 Urine Ketones Negative (Negative) 11/17/24 10:25 Urine Blood Negative (Negative) 11/17/24 10:25 Urine Nitrate Negative (Negative) 11/17/24 10:25 Urine Bilirubin Negative (Negative) 11/17/24 10:25 Urine Urobilinogen 0.2 mg/dL (Negative) 11/17/24 10:25 Ur Leukocyte Esterase Negative (Negative) 11/17/24 10:25 Urine RBC 0-2 /hpf (0-2) 11/17/24 10:25 Urine WBC 0-5 /hpf (0-5) 11/17/24 10:25 Ur Squamous Epith Cells 0-5 /hpf (0-5) 11/17/24 10:25 Amorphous Sediment Not Reportable 11/17/24 10:25 Urine Bacteria None seen /hpf (NONE) 11/17/24 10:25 Hyaline Casts 0-4 /lpf H 11/17/24 10:25 All radiology interpretation(s) finalized by discharge EKG Data EKG 1: I personally reviewed and interpreted this EKG as follows: EKG interpretation date: 11/17/24 EKG interpretation time: 09:32 Interpretation: nsr hr [address] elevation qrs 143 qtc 424 Discharge Plan Discharge Patient Disposition: Home Clinical Impression: Vertigo Condition: Stable Prescriptions: New meclizine 25 mg tablet 25 mg PO BID PRN (Reason: dizziness) Qty: 20 0RF No Action lovastatin 10 mg tablet 10 mg PO DAILY Ocuvite Adult 50 Plus 250-5-1 mg capsule 1 cap PO DAILY Centrum Silver 0.4-300-250 mg-mcg-mcg tablet 1 tab PO DAILY Citracal Plus Bone Density 300-200-13.5 mg-unit-mg tablet 1 tab PO BID cholecalciferol (vitamin D3) 1,250 mcg (50,000 unit) capsule 1,250 mcg PO BID melatonin 3 mg capsule 1.5 mg PO DAILY Mylanta Maximum Strength 400-400-40 mg/5 mL suspension 5 ml PO QID PRN (Reason: Acid Reflux) montelukast 10 mg tablet 10 mg PO DAILY ketoconazole 2 % shampoo 1 applic topical .2x weekly Qty: 120 6RF Rx Instructions: Lather into scalp 2-3 times weekly. Allow to sit on scalp for 5 minutes before rinsing. meloxicam 15 mg tablet 15 mg PO DAILY HYLANDS LEG CRAMP 1 tab PO DAILY PRN (Reason: LEG CRAMP) magnesium 250 mg tablet 250 mg PO DAILY doxycycline hyclate 100 mg tablet 100 mg PO BID Qty: 60 4RF losartan 100 mg tablet 100 mg PO DAILY Qty: 90 3RF furosemide [Lasix] 20 mg tablet 20 mg PO DAILY PRN (Reason: edema) Qty: 90 1RF amlodipine 2.5 mg tablet 2.5 mg PO DAILY Qty: 90 3RF pantoprazole 40 mg Tablet,Delayed Release (Dr/Ec) 40 mg PO BID dorzolamide-timolol 22.3-6.8 mg/mL drops 1 drp ophthalmic (eye) BID Vitamin B-12 2,500 mcg Tablet, Sublingual 2,500 mcg PO DAILY potassium gluconate 595 mg (99 mg) tablet 595 mg PO DAILY PRN (Reason: With diuretic) Qty: 1 0RF Rx Instructions: Change to as needed only, woth diuretic. levothyroxine 88 mcg tablet 88 mcg PO DAILY Discharge Orders: Discharge ED (Routine); Ordered 11/17/24 Ordered By: Es Simon Referrals: Thomas Howe MD [Primary Care Provider, Family Practice] - 4-7 days Discharge Diet: Advance as tolerated Discharge Activity: Resume usual activity Patient Instructions: Vertigo (ED) Print Language: Japanese Coding Level of Care Code ED Chemical Production Technician for Hermann Mao
[2024-11-17 09:34] LABS: Hematocrit 37.9 % (36-47); Hemoglobin 12.70 g/dL (11.27-16.99); Mean Corpuscular HGB Conc 33.5 g/dL (30-55); Mean Corpuscular Hemoglobin 31.8 pg (27-33); Mean Corpuscular Volume 94.8 fl (85-98); Nucleated Red Blood Cells % 0 %; Platelet Count 331 10^3/cmm (157-399); Red Blood Count 4.00 10^6/uL (3.85-5.65); White Blood Count 6.64 10^3/uL (3.29-11.43)
[2024-11-17 09:49] LABS: Alanine Aminotransferase 15 U/L (0-33); Albumin Level 4.8 g/dL (3.5-5.2); Alkaline Phosphatase 77 U/L (35-105); Anion Gap 18.1 (5-19); Aspartate Amino Transferase 24 U/L (0-32); Blood Urea Nitrogen 16 mg/dL (8-23); Calcium 10.1 mg/dL (8.5-10.5); Carbon Dioxide 25 mmol/L (22-29); Chloride 94 mmol/L (98-107); Creatinine Clr Calc Pharmacy 54.7118; Globulin 3.7 g/dL (1.3-4.6); Glucose 112 mg/dL (65-115); Lipase 49 U/L (13-60); Osmolality Calculated 278 mOsm/kg (285-295); Potassium 4.1 mmol/L (3.5-5.1); Sodium 133 mmol/L (136-145); Total Protein 8.5 g/dL (6.6-8.7)
[2024-11-17 10:41] LABS: Glucose Urine UA Negative (Normal); Nitrate Urine Negative (Negative); Specific Gravity, Urine 1.010 (1.005-1.030)
[2024-11-17 10:47] LABS: Add Urine Microscopic? YES
[2024-11-17] MEDS: hyDRALAzine 20 mg/mL INJ 1 mL 10 MG IVP (11:01)
[2024-11-17 11:12] VITALS: BP 172/86; PULSE 73; O2SAT 98
--- NOTE | 2024-11-17 11:12 | PC.NURSE ---
this nurse took over pt care from Mana PUTNAM at 1105.
== END 2024-11-17 11:14 | disposition home or self-care (01) ==
PROVIDERS: Emergency Provider Emergency Medicine; PCP Family Medicine
DX: R42 Dizziness and giddiness (principal); I10 Essential (primary) hypertension
CPT/HCPCS: 70450; 71045; 80053; 81001; 83690; 85025; 93005; 96361; 96374; 99285; J0360; J7030; J8597

== ENCOUNTER 2025-01-16 10:21 | Outpatient (CLI) | payer MEDICARE, OTHER, SELFPAY ==
--- NOTE | 2025-01-16 10:29 | MM_ITS ---
WS: [id number] BILATERAL SCREENING DIGITAL TOMOSYNTHESIS MAMMOGRAM WITH CAD HISTORY: ANNUAL SCREENING COMPARISON: 01/01/2024, 12/13/2022, 11/04/2019, 12/06/2021 Bilateral CC and MLO views with tomosynthesis and synthetic mammography submitted. Computer aided detection analyzed. Breast composition: The breasts are extremely dense, which lowers the sensitivity of mammography. No suspicious masses, microcalcifications or architectural distortion. Dense asymmetries with bilateral moderate arterial calcifications within each breast. Stable since 2019. MM/MM [facility] tomosynthesis [id number] IMPRESSION: BI-RADS: 2 - Benign FOLLOW UP: 1 Year Follow-up
== END 2025-01-16 10:22 | disposition home or self-care (01) ==
PROVIDERS: PCP Family Medicine; Visit Provider Family Medicine
DX: Z12.31 Encounter for screening mammogram for malignant neoplasm of breast (principal); R92.313 Mammographic fatty tissue density, bilateral breasts; R92.1 Mammographic calcification found on diagnostic imaging of breast; N64.89 Other specified disorders of breast
CPT/HCPCS: 77063; 77067

== ENCOUNTER → 2025-02-05 14:45 | Outpatient (BNVA) | payer MEDICARE, OTHER, SELFPAY | PROVIDERS: PCP Family Medicine; Visit Provider Internal Medicine | DX: I10 Essential (primary) hypertension (principal) | CPT/HCPCS: 99213 ==

== ENCOUNTER → 2025-02-06 09:18 | Outpatient (BNVA) | payer MEDICARE, OTHER, SELFPAY | PROVIDERS: PCP Family Medicine; Visit Provider Nurse Practitioner Family | DX: L82.1 Other seborrheic keratosis (principal); D18.01 Hemangioma of skin and subcutaneous tissue; L81.4 Other melanin hyperpigmentation; L57.8 Other skin changes due to chronic exposure to nonionizing radiation; Z08 Encounter for follow-up examination after completed treatment for malignant neoplasm; Z85.828 Personal history of other malignant neoplasm of skin; L82.0 Inflamed seborrheic keratosis; L53.8 Other specified erythematous conditions; L29.89 Other pruritus; R20.8 Other disturbances of skin sensation; D48.5 Neoplasm of uncertain behavior of skin; L57.0 Actinic keratosis | CPT/HCPCS: 11102; 17000; 17110; 99213 ==

== ENCOUNTER → 2025-03-06 12:17 | Outpatient (BNVA) | payer MEDICARE, OTHER, SELFPAY | PROVIDERS: PCP Family Medicine; Visit Provider Dermatology | DX: L73.8 Other specified follicular disorders (principal); Z08 Encounter for follow-up examination after completed treatment for malignant neoplasm; Z85.828 Personal history of other malignant neoplasm of skin; D04.4 Carcinoma in situ of skin of scalp and neck; L57.0 Actinic keratosis | CPT/HCPCS: 17000; 17272; 99213 ==

== ENCOUNTER → 2025-03-26 09:40 | Outpatient (BNVA) | payer MEDICARE, OTHER, SELFPAY | PROVIDERS: PCP Family Medicine; Visit Provider Dermatology | DX: L82.1 Other seborrheic keratosis (principal); L73.8 Other specified follicular disorders; Z48.817 Encounter for surgical aftercare following surgery on the skin and subcutaneous tissue | CPT/HCPCS: 99213 ==

== ENCOUNTER 2025-04-22 11:08 | Outpatient (CLI) | payer MEDICARE, OTHER, SELFPAY ==
[2025-04-22 12:12] LABS: Anion Gap 16.1 (5-19); Blood Urea Nitrogen 28 mg/dL (8-23); Calcium 10.3 mg/dL (8.5-10.5); Carbon Dioxide 27 mmol/L (22-29); Chloride 98 mmol/L (98-107); Glucose 85 mg/dL (65-115); NT Pro B Type Natriuretic Pept 386 pg/mL (0-450); Osmolality Calculated 289 mOsm/kg (285-295); Potassium 4.1 mmol/L (3.5-5.1); Sodium 137 mmol/L (136-145)
== END 2025-04-22 11:09 | disposition home or self-care (01) ==
LOC: LAB 11:10
PROVIDERS: PCP Family Medicine; Visit Provider Internal Medicine
DX: I10 Essential (primary) hypertension (principal); M79.89 Other specified soft tissue disorders
CPT/HCPCS: 36415; 80048; 83880